=== PATIENT | female | born 1970 | race Caucasian/White ===

== ENCOUNTER 2023-02-28 17:02 | Inpatient (IN) | payer MEDICAID, OTHER, SELFPAY ==
[2023-02-28 17:33] VITALS: BP 127/99; PULSE 105; RESP 18; TEMP 36.8; O2SAT 95; BMI 21.6
[2023-02-28 17:45] LABS: Appearance Urine Clear; Color Urine Yellow; Glucose Urine UA Negative (Negative); Leukocyte Esterase Urine Negative (Negative); Nitrite Urine Negative (Negative); Urine Blood Negative (Negative); Urine Ketones Negative (Negative); Urine Protein Trace mg/dL (Neg-Trace)
[2023-02-28 17:50] LABS: Amphetamine Screen Urine Not Detected (Not Detect); Barbiturates, Urine Not Detected (Not Detect); Benzodiazepines Screen Urine Not Detected (Not Detect); Cannabinoid Screen Urine POSITIVE (Not Detect); Cocaine Screen Urine Not Detected (Not Detect); Fentanyl, urine Not Detected (Not Detect); Opiate Screen Urine Not Detected (Not Detect); Phencyclidine Screen Urine Not Detected (Not Detect)
[2023-02-28 18:03] LABS: COVID-19 Test Negative (Negative); IDNOW Serial# 6674DD1D
--- NOTE | 2023-02-28 18:12 | PC.NURSE ---
MD at bedside for assessment. pt reports multiple life stresors including in the family and issues with her grown children. at bedside for visit.
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
[2023-02-28 18:17] LABS: UPreg QC Valid YES; Urine Pregnancy NEGATIVE (NEGATIVE)
[2023-02-28 18:19] LABS: MANUAL DIFF FLAG NO
[2023-02-28 18:22] LABS: Basophils Absolute Auto 0.1 X10*3/uL (0.0-0.2); Basophils Percent Auto 1.1 % (0-2); Eosinophils Absolute Auto 0.2 X10*3/uL (0.0-0.4); Eosinophils Percent Auto 2.5 % (0-4); Hematocrit 43.6 % (37.0-47.0); Hemoglobin 15.1 g/dl (12.0-16.0); Imm Gran Abs Auto 0.01 X10*3/uL (0.00-0.03); Imm Gran Pct Auto 0.2 % (0.0-0.4); Lymphocytes Absolute Auto 1.8 X10*3/uL (1.2-4.9); Lymphocytes Percent Auto 27.7 % (20-40); Mean Corpuscular HGB Conc 34.6 g/dl (31.0-35.0); Mean Corpuscular Hemoglobin 35.4 pg (27.0-33.0); Mean Corpuscular Volume 102.1 fL (80.0-98.0); Mean Platelet Volume 8.8 fL (9.4-12.3); Monocytes Absolute Auto 0.4 X10*3/uL (0.1-1.2); Neutrophils Percent Auto 62.5 % (45-73); Platelet Count 358 X10*3/uL (160-400); Red Blood Count 4.27 X10*6/uL (4.20-5.50); Red Cell Distribution Width 13.1 % (11.0-16.0); White Blood Count 6.4 X10*3/uL (4.8-10.8)
[2023-02-28 18:38] LABS: Alanine Aminotransferase 74 U/L (0-31); Albumin Level 4.7 g/dL (3.5-5.0); Alkaline Phosphatase 65 U/L (39-117); Anion Gap 21 (12-20); Aspartate Amino Transferase 114 U/L (5-31); Bilirubin Total 0.4 mg/dL (0.0-1.0); Blood Urea Nitrogen 7 mg/dL (9-16); Calcium 9.8 mg/dL (8.4-10.2); Carbon Dioxide 24 mmol/L (22-29); Chloride 105 mmol/L (96-108); Creatinine Clr Calc Pharmacy 81.3; Estimated Glomerular Filt Rate > 60; Ethanol 280 mg/dL; Glucose Random 104 mg/dL (60-115); Potassium 3.9 mmol/L (3.3-5.1); Salicylate < 5.0 mg/dL (15-30); Sodium 146 mmol/L (135-145); Total Protein 7.8 g/dL (6.5-8.0)
--- NOTE | 2023-02-28 18:43 | PC.NURSE ---
CARE team at bedside for assessment
--- NOTE | 2023-02-28 19:33 | PC.NURSE ---
patient appears to remain at rest at present respirations are even and unlabored patient appears in no distress
--- NOTE | 2023-02-28 19:36 | PC.NURSE ---
patient having multiple visits one at a time including son
[2023-02-28] MEDS: diphenhydrAMINE HCL 25 MG CAPSULE 50 MG PO (23:09)
[2023-03-01 09:02] VITALS: BP 134/65; PULSE 84; TEMP 36.8; O2SAT 97
[2023-03-01] MEDS: Thiamine HCL 100 MG TABLET PO (10:26)
[2023-03-01] MEDS: LORazepam 1 MG TABLET 2 MG PO ×2 (10:29→16:55)
--- NOTE | 2023-03-01 10:31 | PC.NURSE ---
2MG Lorazepam given for CIWA 13.
--- NOTE | 2023-03-01 11:13 | ECG_ITS ---
Test Reason : QTC INTERVAL Blood Pressure : / mmHG Vent. Rate : 069 BPM Atrial Rate : 056 BPM P-R Int : 134 ms QRS Dur : 072 ms QT Int : 410 ms P-R-T Axes : 067 -02 035 degrees QTc Int : 439 ms Sinus bradycardia with sinus arrhythmia with frequent Premature atrial complexes Possible Left atrial enlargement Borderline ECG When compared with ECG of 31-AUG-2012 23:46, Premature atrial complexes are now Present Referred By: Haydee Vieira Electronically Signed By:PANCHITO WEISS MD
[2023-03-01] MEDS: LORazepam 1 MG TABLET PO (14:41)
--- NOTE | 2023-03-01 14:43 | PC.NURSE ---
CIWA score 7. 1mg Lorazepam given. No behavioral concerns this shift. Appetite fair. Client had visit with boyfriend which she reports as good.
[2023-03-01 16:05] VITALS: BP 136/90; PULSE 103; RESP 16; TEMP 36.8; O2SAT 94
[2023-03-01] MEDS: Acetaminophen 325 MG TABLET 650 MG PO (16:55)
[2023-03-01 17:46] VITALS: BMI 21.6
--- NOTE | 2023-03-01 18:02 | PC.NURSE ---
Little was admitted to M3 at 1550 from [facility] on [facility] for treatment of depression, ptsd and etoh use disorder She has been drinking to pass out daily for 8-9 months. Last drink was 02/28/23 - approx 24 hours prior to admission - CIWA on arrival to the unit was 14 and 2mg ativan given per order with effect. She scored for tremor, diaphoresis, anxiety, headache. She denies history of alcohol withdrawal seizures. On arrival to the unit she is alert, fully oriented, pleasant and cooperative with admission assessment. Mood is depressed. Affect is sad and anxious. She denies hallucinations of any kind and no s/s of psychosis are noted. Thought Process is organized. Patient denies plan or intent to harm self or others. Patient reports that her father committed suicide when she was 3 years old. I would never do that because I know what it does to your children. Appetite is poor and pt has lost 15 pounds without intention. Nutrition consult is pending. Sleep is poor. I drink and smoke pot to sleep but it doesn't really work. Focus is good. Patient reports history of treatment with celexa which was unhelpful and sertraline which was helpful. She reports she would forget to take it and lost her therapist and psychiatrist and pcp because she forgot to attend appointments. She also reports she recently lost her insurance. She denies current .medical Issues. Severe allergy to droperidol - torticollis - confirmed. Little is placed on q 15 min Safety Checks. She is placed on high fall risk for unknown recent history of falls.
[2023-03-01 20:25] VITALS: RESP 18; TEMP 36.2
[2023-03-02] MEDS: LORazepam 1 MG TABLET 2 MG PO ×4 (03:10→19:39)
[2023-03-02 03:14] VITALS: BP 125/93; PULSE 95; RESP 18; TEMP 36.6; O2SAT 98
[2023-03-02 10:50] VITALS: BP 142/79; PULSE 75; RESP 16; TEMP 36.7; O2SAT 98
[2023-03-02] MEDS: Acetaminophen 325 MG TABLET 650 MG PO ×2 (11:10→19:38)
[2023-03-02] MEDS: Ondansetron ODT 4 MG TAB.RAPDIS TRANSLINGU (11:16)
--- NOTE | 2023-03-02 13:06 | MHC.CLN ---
NUTRITION CONSULT FOR REPORTED 15# WEIGHT LOSS. PATIENT DRINKING HEAVILY X 8-9 MONTHS PRIOR TO ADMISSION. WEIGHT LOSS LIKELY DUE TO ETOH ABUSE AND MARIJUANA USE. REPORTS THAT EATING SMALL AMOUNTS NOW. PER DISCUSSION, ADDING FORTIFIED ICE CREAM BID. PROVIDES 580 KCALS, 18 G PROTEIN.
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
[2023-03-02] MEDS: Sertraline HCL 25 MG TABLET PO (15:04)
[2023-03-02 15:16] VITALS: BP 126/81; PULSE 41; O2SAT 96
[2023-03-02] MEDS: Magnesium Hydrox/Alum Hydrox 30 ML ORAL.SUSP PO (15:22)
[2023-03-02 18:28] VITALS: BP 136/90; PULSE 104; RESP 18; TEMP 36.6; O2SAT 96
[2023-03-02] MEDS: Loperamide HCl 2 MG CAPSULE 4 MG PO (21:26)
[2023-03-02 23:46] VITALS: BP 120/88; PULSE 107; RESP 16; TEMP 36.6; O2SAT 99
[2023-03-02] MEDS: Mirtazapine 15 MG TABLET PO (23:55)
[2023-03-03] MEDS: LORazepam 1 MG TABLET 3 MG PO (00:01)
--- NOTE | 2023-03-03 00:08 | PC.NURSE ---
notified of CIWA of 20. patient is fully oriented. no agitation. presents with severe tremors and drenching sweats. on approach for assessment stated ''I'm so cold'' when linen checked, it was drenched. linen changed. patient with tremors and had difficulties holding her water cup without spilling it. 3 mg ativan administered as per orders. patient is aware that she will be re assessed during the overnight shift. able to verbalize back need to wake for assessment.
--- NOTE | 2023-03-03 02:33 | PC.NURSE ---
CIWA done at 0200. still with some tremors but is no longer with severe diaphoresis.
[2023-03-03 04:58] VITALS: BP 135/79; PULSE 87; RESP 14; TEMP 36.3; O2SAT 98
[2023-03-03] MEDS: LORazepam 1 MG TABLET PO ×4 (05:04→23:46)
[2023-03-03] MEDS: Ondansetron ODT 4 MG TAB.RAPDIS TRANSLINGU ×2 (05:04→13:42)
[2023-03-03] MEDS: Acetaminophen 325 MG TABLET 650 MG PO ×2 (05:04→19:53)
[2023-03-03 07:20] VITALS: BP 133/80; PULSE 62; RESP 16; TEMP 36.2; O2SAT 98
[2023-03-03] MEDS: Sertraline HCL 25 MG TABLET PO (08:30)
[2023-03-03] MEDS: Thiamine HCL 100 MG TABLET PO (08:30)
--- NOTE | 2023-03-03 13:01 | P.PNPSI_ITS ---
Subjective Subjective Date of Service: 03/03/23 Reason For Visit: SI/ETOH Subjective Notes: Conditional Voluntary Interim History: The nursing staff reported the patient had been scoring on the CIWA very high and she had been responding to Ativan. She had a good p.o. intake and she has some tremors. On interview at bedside she was pleasant, cooperative I explained her that she is going into alcohol withdrawal protocol and she was able to contract for safety in the facility. She looks very dysphoric Mental Status Exam Mental Status Exam Patient Appearance: Appropriate and Unkempt Patient Orientation: Person and Situation Level of Consciousness: Awake Patient Behavior: Guarded and Passive Mood Description: Withdrawn Affect Description: Constricted Patient Cognition Impaired: Yes Ability to Follow Directions: Good Speech Pattern: Clear Hallucinations: None Delusions: Not Present Thought Process: Distracted and Slowed Thinking Thought Content: positive for Circumstantial and positive for Poverty of Content Judgement: Fair Diagnostics Vital Signs (24Hr): Vital Signs - 24 hr 03/02/23 15:16 03/02/23 18:28 03/02/23 23:46 Temperature 97.9 F 98 F Pulse Rate 41 L 104 H 107 H Respiratory Rate 18 16 Blood Pressure 126/81 136/90 H 120/88 Pulse Oximetry 96 96 99 Oxygen Delivery Method Room Air Room Air Room Air 03/03/23 04:58 03/03/23 07:20 Temperature 97.3 F 97.2 F Pulse Rate 87 62 Respiratory Rate 14 16 Blood Pressure 135/79 133/80 Pulse Oximetry 98 98 Oxygen Delivery Method Room Air Room Air BMI result Body Mass Index 21.6 Labs 02/28/23 18:13 02/28/23 18:13 Medications Medications Current Medications Acetaminophen (Acetaminophen 325 Mg Tablet) 650 mg PO Q6H PRN PRN Reason: Headache/Pain Mild Scale (1-3) Last Admin: 03/03/23 05:04 Dose: 650 mg Al Hydroxide/Mg Hydroxide (Magnesium Hydrox/Alum Hydrox 30 Ml Oral.Susp) 30 ml PO Q6H PRN PRN Reason: Heartburn/Nausea Last Admin: 03/02/23 15:22 Dose: 30 ml Hydroxyzine HCl (Hydroxyzine Hcl 25 Mg Tablet) 25 mg PO Q6H PRN PRN Reason: Anxiety Lorazepam (Lorazepam 1 Mg Tablet) 1 mg PO Q4H PRN PRN Reason: ciwa 7-12 Last Admin: 03/03/23 08:30 Dose: 1 mg Lorazepam (Lorazepam 1 Mg Tablet) 2 mg PO Q4H PRN PRN Reason: ciwa 13-17 Last Admin: 03/02/23 19:39 Dose: 2 mg Lorazepam (Lorazepam 1 Mg Tablet) 3 mg PO Q4H PRN PRN Reason: >17, call Last Admin: 03/03/23 00:01 Dose: 3 mg Magnesium Hydroxide (Milk Of Magnesia 30 Ml Oral.Susp) 30 ml PO DAILY PRN PRN Reason: Constipation Mirtazapine (Mirtazapine 15 Mg Tablet) 15 mg PO BEDTIME MARIO Last Admin: 03/02/23 23:55 Dose: 15 mg Mirtazapine (Mirtazapine 7.5 Mg Tablet) 7.5 mg PO BEDTIME PRN PRN Reason: insomnia Nicotine Polacrilex (Nicotine Polacrilex 2 Mg Gum) 4 mg BUCCAL Q2H PRN PRN Reason: Nicotine Cravings Ondansetron HCl (Ondansetron Odt 4 Mg Tab.Rapdis) 4 mg TRANSLINGU Q6H PRN PRN Reason: Nausea and Vomiting Last Admin: 03/03/23 05:04 Dose: 4 mg Sertraline HCl (Sertraline Hcl 25 Mg Tablet) 25 mg PO DAILY MARIO Stop: 03/04/23 09:01 Last Admin: 03/03/23 08:30 Dose: 25 mg Sertraline HCl (Sertraline Hcl 50 Mg Tablet) 50 mg PO DAILY MARIO Thiamine HCl (Thiamine Hcl 100 Mg Tablet) 100 mg PO DAILY [facility] Last Admin: 03/03/23 08:30 Dose: 100 mg Allergies Allergies Allergy/AdvReac Type Severity Reaction Status Date / Time droperidol [From INAPSINE] Allergy Severe MUSCLE Verified 03/01/23 16:12 CRAMPS Assessment & Plan Assessment & Plan (1) Alcohol use disorder: Status: Acute Code(s): F10.90 - Alcohol use, unspecified, uncomplicated (2) Depression: Status: Acute Code(s): F32.A - Depression, unspecified Plan 03/02: to target depression, insomnia, and anorexia, start remeron 15 QHS with repeat of 7.5 PRN. to target depression and anxiety, start zoloft 25 mg for three days and then 50 mg thereafter. T/C addition of wellbutrin as augmentation and to increase energy, motivation if warranted. 03/03 continue same treatment, still with alcohol withdrawal symptoms. Reason for continued inpatient stay Substantial Risk for: inability to function, rapid decompensation and med/psych decompensation Time Spent With Patient Time: Total time managing care of this patient today __20__ minutes.
[2023-03-03] MEDS: LORazepam 1 MG TABLET 2 MG PO (13:42)
[2023-03-03 19:47] VITALS: BP 123/83; PULSE 110; RESP 16; TEMP 36.3; O2SAT 97
[2023-03-03] MEDS: hydrOXYzine HCL 25 MG TABLET PO (19:54)
[2023-03-03] MEDS: Mirtazapine 15 MG TABLET PO (23:46)
--- NOTE | 2023-03-03 23:48 | PC.NURSE ---
CIWA-meet criteria for ativan 1 mg for alcohol w/d. administered at this time.
[2023-03-04 07:20] VITALS: BP 135/71; PULSE 60; RESP 16; TEMP 36.2; O2SAT 98
[2023-03-04] MEDS: Sertraline HCL 25 MG TABLET PO (08:16)
[2023-03-04] MEDS: Ondansetron ODT 4 MG TAB.RAPDIS TRANSLINGU (08:17)
[2023-03-04] MEDS: Thiamine HCL 100 MG TABLET PO (08:17)
--- NOTE | 2023-03-04 12:27 | HO.PSYCHPN ---
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 On interview the patient reported that she has feeling a little better. Denies active suicidal thoughts able to contract for safety in the unit. Mental Status Exam Mental Status Exam Patient Appearance: Appropriate Patient Orientation: Person and Situation Level of Consciousness: Awake Patient Behavior: Guarded and Passive Mood Description: Withdrawn Affect Description: Blunted Ability to Follow Directions: Good Speech Pattern: Clear Hallucinations: None Delusions: Not Present Thought Process: Distracted and Slowed Thinking Thought Content: positive for [place] and positive for Poverty of Content Judgement: Fair Diagnostics Vital Signs (24Hr): Vital Signs - 24 hr 03/03/23 19:47 03/04/23 07:20 Temperature 97.3 F 97.2 F Pulse Rate 110 H 60 Respiratory Rate 16 16 Blood Pressure 123/83 135/71 Pulse Oximetry 97 98 Oxygen Delivery Method Room Air Room Air BMI result Body Mass Index 21.6 Labs 02/28/23 18:13 02/28/23 18:13 Medications Medications Current Medications Acetaminophen (Acetaminophen 325 Mg Tablet) 650 mg PO Q6H PRN PRN Reason: Headache/Pain Mild Scale (1-3) Last Admin: 03/03/23 19:53 Dose: 650 mg Al Hydroxide/Mg Hydroxide (Magnesium Hydrox/Alum Hydrox 30 Ml Oral.Susp) 30 ml PO Q6H PRN PRN Reason: Heartburn/Nausea Last Admin: 03/02/23 15:22 Dose: 30 ml Hydroxyzine HCl (Hydroxyzine Hcl 25 Mg Tablet) 25 mg PO Q6H PRN PRN Reason: Anxiety Last Admin: 03/03/23 19:54 Dose: 25 mg Lorazepam (Lorazepam 1 Mg Tablet) 1 mg PO Q4H PRN PRN Reason: ciwa 7-12 Last Admin: 03/03/23 23:46 Dose: 1 mg Lorazepam (Lorazepam 1 Mg Tablet) 2 mg PO Q4H PRN PRN Reason: ciwa 13-17 Last Admin: 03/03/23 13:42 Dose: 2 mg Lorazepam (Lorazepam 1 Mg Tablet) 3 mg PO Q4H PRN PRN Reason: >17, call Last Admin: 03/03/23 00:01 Dose: 3 mg Magnesium Hydroxide (Milk Of Magnesia 30 Ml Oral.Susp) 30 ml PO DAILY PRN PRN Reason: Constipation Mirtazapine (Mirtazapine 15 Mg Tablet) 15 mg PO BEDTIME MARIO Last Admin: 03/03/23 23:46 Dose: 15 mg Mirtazapine (Mirtazapine 7.5 Mg Tablet) 7.5 mg PO BEDTIME PRN PRN Reason: insomnia Nicotine Polacrilex (Nicotine Polacrilex 2 Mg Gum) 4 mg BUCCAL Q2H PRN PRN Reason: Nicotine Cravings Ondansetron HCl (Ondansetron Odt 4 Mg Tab.Rapdis) 4 mg TRANSLINGU Q6H PRN PRN Reason: Nausea and Vomiting Last Admin: 03/04/23 08:17 Dose: 4 mg Sertraline HCl (Sertraline Hcl 50 Mg Tablet) 50 mg PO DAILY MARIO Thiamine HCl (Thiamine Hcl 100 Mg Tablet) 100 mg PO DAILY MARIO Last Admin: 03/04/23 08:17 Dose: 100 mg Allergies Allergies Allergy/AdvReac Type Severity Reaction Status Date / Time droperidol [From INAPSINE] Allergy Severe MUSCLE Verified 03/01/23 16:12 CRAMPS Assessment & Plan Assessment & Plan (1) Alcohol use disorder: Status: Acute Code(s): F10.90 - Alcohol use, unspecified, uncomplicated (2) Depression: Status: Acute Code(s): F32.A - Depression, unspecified Plan 03/02: to target depression, insomnia, and anorexia, start remeron 15 QHS with repeat of 7.5 PRN. to target depression and anxiety, start zoloft 25 mg for three days and then 50 mg thereafter. T/C addition of wellbutrin as augmentation and to increase energy, motivation if warranted. 03/03 continue same treatment, still with alcohol withdrawal symptoms. 03/04 continue same treatment. Reason for continued inpatient stay Substantial Risk for: inability to function, rapid decompensation and med/psych decompensation Time Spent With Patient Time: Total time managing care of this patient today ____ minutes.
[2023-03-04 20:15] VITALS: BP 139/66; PULSE 72; RESP 18; TEMP 36.5; O2SAT 99
[2023-03-04] MEDS: Mirtazapine 15 MG TABLET PO (23:01)
[2023-03-05] MEDS: Mirtazapine 7.5 MG TABLET PO (00:46)
[2023-03-05] MEDS: LORazepam 1 MG TABLET PO ×2 (00:46→08:48)
[2023-03-05] MEDS: hydrOXYzine HCL 25 MG TABLET PO (03:47)
--- NOTE | 2023-03-05 04:09 | PC.NURSE ---
Little is noted to be having difficulty falling and staying asleep. she c/o increased anxiety with racing thoughts. I just can't seem to shut my mind off tonight this food writer reviewed various relaxation and visualization techniques with the patient. Little stated understanding of the techniques reviewed and that she would attempt to initiate some of the techniques reviewed. no score on CIWA at 2000. patient received 1 mg of Ativan for a score of 10 at 0100 along with a repeat PRN Remeron. 0400 no score. continue to monitor for safety, review relaxation techniques as needed, continue Plan of Care
[2023-03-05 07:15] VITALS: BP 126/74; PULSE 90; RESP 18; TEMP 36.9; O2SAT 97
[2023-03-05] MEDS: Thiamine HCL 100 MG TABLET PO (08:45)
[2023-03-05] MEDS: Sertraline HCL 50 MG TABLET PO (08:45)
[2023-03-05] MEDS: Milk of Magnesia 30 ML ORAL.SUSP PO (08:51)
--- NOTE | 2023-03-05 11:56 | HO.PSYCHPN ---
Subjective Subjective Date of Service: 03/05/23 Reason For Visit: SI/ETOH Subjective Notes: Conditional Voluntary Interim History: Reviewed with Dr. Feldman. Patient reports feeling better today; pt stated, I feel like this is something that needed to happen. I'm committed to not being the person I came in. I want to go to a program . Pt denies SI/HI/VH/AH. pt denies any withdrawal symptoms. DC ITZELWA. Medication Compliance: Yes Side effects from medications: No Review of Systems Constitutional: Reports as per HPI Eyes: Reports as per HPI Reports as per HPI Cardiovascular: Reports as per HPI Respiratory: Reports as per HPI Gastrointestinal: Reports as per HPI Genitourinary: Reports as per HPI Musculoskeletal: Reports as per HPI Skin/Breast: Reports as per HPI Reports as per HPI Psychiatric: Reports as per HPI Endocrine: Reports as per HPI Hematologic/Lymphatic: Reports as per HPI Allergic/Immunologic: Reports as per HPI Mental Status Exam Mental Status Exam Narrative: Pt is alert and oriented; behavior is cooperative, friendly and calm; dressed in casual attire; mood is described as better ; eye contact appropriate; Speech is normal rate, volume and prosody and not pressured; thought process is organized and goal directed; Thought content is on tx; otherwise pertinent to relevant topics and without any delusional content, paranoid ideations or grandiosity; denies SI/HI/VH/AH. Diagnostics Vital Signs (24Hr): Vital Signs - 24 hr 03/04/23 20:15 03/05/23 07:15 Temperature 97.7 F 98.5 F Pulse Rate 72 90 Respiratory Rate 18 18 Blood Pressure 139/66 126/74 Pulse Oximetry 99 97 Oxygen Delivery Method Room Air Room Air BMI result Body Mass Index 21.6 Labs 02/28/23 18:13 02/28/23 18:13 Medications Medications Current Medications Acetaminophen (Acetaminophen 325 Mg Tablet) 650 mg PO Q6H PRN PRN Reason: Headache/Pain Mild Scale (1-3) Last Admin: 03/03/23 19:53 Dose: 650 mg Al Hydroxide/Mg Hydroxide (Magnesium Hydrox/Alum Hydrox 30 Ml Oral.Susp) 30 ml PO Q6H PRN PRN Reason: Heartburn/Nausea Last Admin: 03/02/23 15:22 Dose: 30 ml Hydroxyzine HCl (Hydroxyzine Hcl 25 Mg Tablet) 25 mg PO Q6H PRN PRN Reason: Anxiety Last Admin: 03/05/23 03:47 Dose: 25 mg Lorazepam (Lorazepam 1 Mg Tablet) 1 mg PO Q4H PRN PRN Reason: ciwa 7-12 Last Admin: 03/05/23 08:48 Dose: 1 mg Lorazepam (Lorazepam 1 Mg Tablet) 2 mg PO Q4H PRN PRN Reason: ciwa 13-17 Last Admin: 03/03/23 13:42 Dose: 2 mg Lorazepam (Lorazepam 1 Mg Tablet) 3 mg PO Q4H PRN PRN Reason: >17, call Last Admin: 03/03/23 00:01 Dose: 3 mg Magnesium Hydroxide (Milk Of Magnesia 30 Ml Oral.Susp) 30 ml PO DAILY PRN PRN Reason: Constipation Last Admin: 03/05/23 08:51 Dose: 30 ml Mirtazapine (Mirtazapine 15 Mg Tablet) 15 mg PO BEDTIME MARIO Last Admin: 03/04/23 23:01 Dose: 15 mg Mirtazapine (Mirtazapine 7.5 Mg Tablet) 7.5 mg PO BEDTIME PRN PRN Reason: insomnia Last Admin: 03/05/23 00:46 Dose: 7.5 mg Nicotine Polacrilex (Nicotine Polacrilex 2 Mg Gum) 4 mg BUCCAL Q2H PRN PRN Reason: Nicotine Cravings Ondansetron HCl (Ondansetron Odt 4 Mg Tab.Rapdis) 4 mg TRANSLINGU Q6H PRN PRN Reason: Nausea and Vomiting Last Admin: 03/04/23 08:17 Dose: 4 mg Sertraline HCl (Sertraline Hcl 50 Mg Tablet) 50 mg PO DAILY [facility] Last Admin: 03/05/23 08:45 Dose: 50 mg Thiamine HCl (Thiamine Hcl 100 Mg Tablet) 100 mg PO DAILY [facility] Last Admin: 03/05/23 08:45 Dose: 100 mg Allergies Allergies Allergy/AdvReac Type Severity Reaction Status Date / Time droperidol [From INAPSINE] Allergy Severe MUSCLE Verified 03/01/23 16:12 CRAMPS Assessment & Plan Assessment & Plan (1) Alcohol use disorder: Status: Acute Code(s): F10.90 - Alcohol use, unspecified, uncomplicated (2) Depression: Status: Acute Code(s): F32.A - Depression, unspecified Plan 03/02: to target depression, insomnia, and anorexia, start remeron 15 QHS with repeat of 7.5 PRN. to target depression and anxiety, start zoloft 25 mg for three days and then 50 mg thereafter. T/C addition of wellbutrin as augmentation and to increase energy, motivation if warranted. 03/03 continue same treatment, still with alcohol withdrawal symptoms. 03/04 continue same treatment. 03/05: Patient reports feeling better today; pt stated, I feel like this is something that needed to happen. I'm committed to not being the person I came in. I want to go to a program . Pt denies SI/HI/VH/AH. pt denies any withdrawal symptoms. ANA ROSALES. Start: Ativan 0.5mg PO BID Patient educated on: diagnosis, medication risk/benefits, substance abuse and therapeutic strategies Informed Consent: understands Reason for continued inpatient stay Substantial Risk for: med/psych decompensation Time Spent With Patient Time: Total time managing care of this patient today _30___ minutes.
[2023-03-05] MEDS: LORazepam 0.5 MG TABLET PO ×2 (13:11→22:22)
[2023-03-05 21:00] VITALS: BP 134/84; PULSE 82; RESP 18; TEMP 36.7; O2SAT 97
[2023-03-05] MEDS: Mirtazapine 15 MG TABLET PO (22:22)
--- NOTE | 2023-03-06 04:01 | PC.NURSE ---
Little came to this promotion writer crying stating It's gonna be a ruff night for me she said she was upset because she had tried to call her boyfriend and that his phone was off. his phone is never off there's only one reason for him to not be answering the phone, I know he's cheating on me this promotion writer spent approximately 45 minutes talking with the patient, teaching new relaxation techniques and reviewing others that have already been discussed. the patient was able to regain her composure and return to her bed. she has appeared to be asleep since approximately 0100. continue to monitor or safety, review stress reduction relaxation techniques as needed, continue Plan of Care
[2023-03-06 08:10] VITALS: BP 124/77; PULSE 64; RESP 16; TEMP 36.4; O2SAT 96
[2023-03-06] MEDS: LORazepam 0.5 MG TABLET PO ×2 (08:28→21:33)
[2023-03-06] MEDS: Sertraline HCL 50 MG TABLET PO (08:28)
[2023-03-06] MEDS: Thiamine HCL 100 MG TABLET PO (08:28)
--- NOTE | 2023-03-06 13:04 | P.PNPSI_ITS ---
Subjective Subjective Date of Service: 03/06/23 Reason For Visit: SI/ETOH Subjective Notes: Conditional Voluntary Interim History: Reviewed with Dr. Feldman. Social with peers. better sleep last night per pt. Pt reports she was doing great but last night was having boyfriend issues and told him to move out . denies SI. Medication Compliance: Yes Side effects from medications: No Attending Groups: Yes Review of Systems Constitutional: Reports as per HPI Eyes: Reports as per HPI Reports as per HPI Cardiovascular: Reports as per HPI Respiratory: Reports as per HPI Gastrointestinal: Reports as per HPI Musculoskeletal: Reports as per HPI Skin/Breast: Reports as per HPI Reports as per HPI Psychiatric: Reports as per HPI Endocrine: Reports as per HPI Hematologic/Lymphatic: Reports as per HPI Allergic/Immunologic: Reports as per HPI Mental Status Exam Mental Status Exam Narrative: Pt is alert and oriented; behavior is cooperative, friendly and calm; dressed in casual attire; mood is described as anxious ; eye contact appropriate; Speech is normal rate, volume and prosody and not pressured; thought process is organized and goal directed; Thought content is on tx; otherwise pertinent to relevant topics and without any delusional content, paranoid ideations or grandiosity. Diagnostics Vital Signs (24Hr): Vital Signs - 24 hr 03/05/23 21:00 03/06/23 08:10 Temperature 98.0 F 97.6 F Pulse Rate 82 64 Respiratory Rate 18 16 Blood Pressure 134/84 124/77 Pulse Oximetry 97 96 Oxygen Delivery Method Room Air Room Air BMI result Body Mass Index 21.6 Labs 02/28/23 18:13 02/28/23 18:13 Medications Medications Current Medications Acetaminophen (Acetaminophen 325 Mg Tablet) 650 mg PO Q6H PRN PRN Reason: Headache/Pain Mild Scale (1-3) Last Admin: 03/03/23 19:53 Dose: 650 mg Al Hydroxide/Mg Hydroxide (Magnesium Hydrox/Alum Hydrox 30 Ml Oral.Susp) 30 ml PO Q6H PRN PRN Reason: Heartburn/Nausea Last Admin: 03/02/23 15:22 Dose: 30 ml Hydroxyzine HCl (Hydroxyzine Hcl 25 Mg Tablet) 25 mg PO Q6H PRN PRN Reason: Anxiety Last Admin: 03/05/23 03:47 Dose: 25 mg Lorazepam (Lorazepam 0.5 Mg Tablet) 0.5 mg PO BID MARIO Last Admin: 03/06/23 08:28 Dose: 0.5 mg Magnesium Hydroxide (Milk Of Magnesia 30 Ml Oral.Susp) 30 ml PO DAILY PRN PRN Reason: Constipation Last Admin: 03/05/23 08:51 Dose: 30 ml Mirtazapine (Mirtazapine 15 Mg Tablet) 15 mg PO BEDTIME [facility] Last Admin: 03/05/23 22:22 Dose: 15 mg Mirtazapine (Mirtazapine 7.5 Mg Tablet) 7.5 mg PO BEDTIME PRN PRN Reason: insomnia Last Admin: 03/05/23 00:46 Dose: 7.5 mg Nicotine Polacrilex (Nicotine Polacrilex 2 Mg Gum) 4 mg BUCCAL Q2H PRN PRN Reason: Nicotine Cravings Ondansetron HCl (Ondansetron Odt 4 Mg Tab.Rapdis) 4 mg TRANSLINGU Q6H PRN PRN Reason: Nausea and Vomiting Last Admin: 03/04/23 08:17 Dose: 4 mg Sertraline HCl (Sertraline Hcl 50 Mg Tablet) 50 mg PO DAILY [facility] Last Admin: 03/06/23 08:28 Dose: 50 mg Thiamine HCl (Thiamine Hcl 100 Mg Tablet) 100 mg PO DAILY [facility] Last Admin: 03/06/23 08:28 Dose: 100 mg Allergies Allergies Allergy/AdvReac Type Severity Reaction Status Date / Time droperidol [From INAPSINE] Allergy Severe MUSCLE Verified 03/01/23 16:12 CRAMPS Assessment & Plan Assessment & Plan (1) Alcohol use disorder: Status: Acute Code(s): F10.90 - Alcohol use, unspecified, uncomplicated (2) Depression: Status: Acute Code(s): F32.A - Depression, unspecified Plan 03/02: to target depression, insomnia, and anorexia, start remeron 15 QHS with repeat of 7.5 PRN. to target depression and anxiety, start zoloft 25 mg for three days and then 50 mg thereafter. T/C addition of wellbutrin as augmentation and to increase energy, motivation if warranted. 03/03 continue same treatment, still with alcohol withdrawal symptoms. 03/04 continue same treatment. 03/05: Patient reports feeling better today; pt stated, I feel like this is something that needed to happen. I'm committed to not being the person I came in. I want to go to a program . Pt denies SI/HI/VH/AH. pt denies any withdrawal symptoms. DC CIWA. Start: Ativan 0.5mg PO BID 03/06: Continue current tx plan. Patient educated on: diagnosis and medication risk/benefits Informed Consent: understands Reason for continued inpatient stay Substantial Risk for: med/psych decompensation Time Spent With Patient Time: Total time managing care of this patient today _20___ minutes.
[2023-03-06] MEDS: Omeprazole 20 MG CAPSULE.DR PO (14:06)
[2023-03-06] MEDS: Mirtazapine 15 MG TABLET PO (21:33)
[2023-03-06 21:35] VITALS: BP 133/81; PULSE 70; RESP 16; TEMP 35.9; O2SAT 98
[2023-03-06] MEDS: hydrOXYzine HCL 25 MG TABLET PO (23:40)
[2023-03-06] MEDS: Mirtazapine 7.5 MG TABLET PO (23:40)
[2023-03-07] MEDS: Omeprazole 20 MG CAPSULE.DR PO (06:53)
[2023-03-07 07:50] VITALS: BP 125/69; PULSE 62; RESP 16; TEMP 36.4; O2SAT 96
[2023-03-07] MEDS: Sertraline HCL 50 MG TABLET PO (08:43)
[2023-03-07] MEDS: LORazepam 0.5 MG TABLET PO ×2 (08:44→21:59)
[2023-03-07] MEDS: Thiamine HCL 100 MG TABLET PO (08:44)
--- NOTE | 2023-03-07 16:10 | HO.PSYCHPN ---
Subjective Subjective Date of Service: 03/07/23 Reason For Visit: SI/ETOH Interim History: calm, cooperative. c/o DFA insomnia, agrees to increase remeron to 30 mg QHS. mood much improved, making changes at home to prevent alcohol relapse. planning for sunday discharge. Mental Status Exam Mental Status Exam Narrative: calm, cooperative. no PMA/PMR. speech nml rate, amount, loudness, tone, latency. thoughts linear and logical without delusions or paranoia. affect flexible, normo-intense, non-labile. mood wonderful. no SI/HI/AVH/expressed. Diagnostics Vital Signs (24Hr): Vital Signs - 24 hr 03/06/23 21:35 03/07/23 07:50 Temperature 96.6 F L 97.6 F Pulse Rate 70 62 Respiratory Rate 16 16 Blood Pressure 133/81 125/69 Pulse Oximetry 98 96 Oxygen Delivery Method Room Air Room Air BMI result Body Mass Index 21.6 Labs 02/28/23 18:13 02/28/23 18:13 Medications Medications Current Medications Acetaminophen (Acetaminophen 325 Mg Tablet) 650 mg PO Q6H PRN PRN Reason: Headache/Pain Mild Scale (1-3) Last Admin: 03/03/23 19:53 Dose: 650 mg Al Hydroxide/Mg Hydroxide (Magnesium Hydrox/Alum Hydrox 30 Ml Oral.Susp) 30 ml PO Q6H PRN PRN Reason: Heartburn/Nausea Last Admin: 03/02/23 15:22 Dose: 30 ml Hydroxyzine HCl (Hydroxyzine Hcl 25 Mg Tablet) 25 mg PO Q6H PRN PRN Reason: Anxiety Last Admin: 03/06/23 23:40 Dose: 25 mg Lorazepam (Lorazepam 0.5 Mg Tablet) 0.5 mg PO BEDTIME MARIO Magnesium Hydroxide (Milk Of Magnesia 30 Ml Oral.Susp) 30 ml PO DAILY PRN PRN Reason: Constipation Last Admin: 03/05/23 08:51 Dose: 30 ml Mirtazapine (Mirtazapine 7.5 Mg Tablet) 7.5 mg PO BEDTIME PRN PRN Reason: insomnia Last Admin: 03/06/23 23:40 Dose: 7.5 mg Mirtazapine (Mirtazapine 30 Mg Tablet) 30 mg PO BEDTIME MARIO Nicotine Polacrilex (Nicotine Polacrilex 2 Mg Gum) 4 mg BUCCAL Q2H PRN PRN Reason: Nicotine Cravings Omeprazole (Omeprazole 20 Mg Capsule.Dr) 20 mg PO DAILY@0630 [facility] Last Admin: 03/07/23 06:53 Dose: 20 mg Ondansetron HCl (Ondansetron Odt 4 Mg Tab.Rapdis) 4 mg TRANSLINGU Q6H PRN PRN Reason: Nausea and Vomiting Last Admin: 03/04/23 08:17 Dose: 4 mg Sertraline HCl (Sertraline Hcl 50 Mg Tablet) 50 mg PO DAILY [facility] Last Admin: 03/07/23 08:43 Dose: 50 mg Thiamine HCl (Thiamine Hcl 100 Mg Tablet) 100 mg PO DAILY [facility] Last Admin: 03/07/23 08:44 Dose: 100 mg Allergies Allergies Allergy/AdvReac Type Severity Reaction Status Date / Time droperidol [From INAPSINE] Allergy Severe MUSCLE Verified 03/01/23 16:12 CRAMPS Assessment & Plan Assessment & Plan (1) Alcohol use disorder: Status: Acute Code(s): F10.90 - Alcohol use, unspecified, uncomplicated (2) Depression: Status: Acute Code(s): F32.A - Depression, unspecified Plan 03/02: to target depression, insomnia, and anorexia, start remeron 15 QHS with repeat of 7.5 PRN. to target depression and anxiety, start zoloft 25 mg for three days and then 50 mg thereafter. T/C addition of wellbutrin as augmentation and to increase energy, motivation if warranted. 03/03 continue same treatment, still with alcohol withdrawal symptoms. 03/04 continue same treatment. 03/05: Patient reports feeling better today; pt stated, I feel like this is something that needed to happen. I'm committed to not being the person I came in. I want to go to a program . Pt denies SI/HI/VH/AH. pt denies any withdrawal symptoms. DC CIWA. Start: Ativan 0.5mg PO BID 03/06: Continue current tx plan. 03/07: increase remeron to 30 mg QHS, otherwise continue current mgmt. planning for sunday discharge. Reason for continued inpatient stay Substantial Risk for: inability to function and rapid decompensation Time Spent With Patient Time: Total time managing care of this patient today __25__ minutes.
[2023-03-07] MEDS: Mirtazapine 30 MG TABLET PO (21:59)
[2023-03-07 22:01] VITALS: BP 142/82; PULSE 69; RESP 16; TEMP 36.8; O2SAT 99
[2023-03-08] MEDS: Omeprazole 20 MG CAPSULE.DR PO (06:50)
[2023-03-08 07:00] VITALS: BMI 22.4
[2023-03-08 07:15] VITALS: BP 123/75; PULSE 62; RESP 16; TEMP 36.7; O2SAT 96
[2023-03-08] MEDS: Sertraline HCL 50 MG TABLET PO (08:54)
[2023-03-08] MEDS: Thiamine HCL 100 MG TABLET PO (08:54)
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
[2023-03-08 19:53] VITALS: BP 125/96; PULSE 85; RESP 18; TEMP 36.7; O2SAT 97
[2023-03-08] MEDS: Mirtazapine 30 MG TABLET PO (22:25)
[2023-03-08] MEDS: LORazepam 0.5 MG TABLET PO (22:25)
[2023-03-09 07:30] VITALS: BP 125/69; PULSE 62; RESP 16; TEMP 36.4; O2SAT 97
[2023-03-09] MEDS: Sertraline HCL 50 MG TABLET PO (08:42)
[2023-03-09] MEDS: Thiamine HCL 100 MG TABLET PO (08:42)
[2023-03-09] MEDS: Omeprazole 20 MG CAPSULE.DR PO (08:42)
== END 2023-03-09 09:23 | disposition home or self-care (01) | DRG 754 ==
LOC: HO.ED 03-01 07:31 → HO.PADLT16 03-01 14:33
PROVIDERS: Admitting Provider Psychiatry & Neurology Psychiatry; Emergency Provider Emergency Medicine; Visit Provider Psychiatry & Neurology Psychiatry
DX: F32.A Depression, unspecified (principal); R45.851 Suicidal ideations; F10.920 Alcohol use, unspecified with intoxication, uncomplicated; F17.210 Nicotine dependence, cigarettes, uncomplicated; Z20.822 Contact with and (suspected) exposure to COVID-19; Y90.8 Blood alcohol level of 240 mg/100 ml or more; Z71.6 Tobacco abuse counseling; Z79.899 Other long term (current) drug therapy
CPT/HCPCS: 80053; 80179; 80307; 81003; 81025; 85025; 87635; 93005; 99285; S9485

== ENCOUNTER → 2023-03-01 11:13 | Outpatient (BNV) | payer MEDICAID, SELFPAY | PROVIDERS: Admitting Provider Psychiatry & Neurology Psychiatry; Emergency Provider Emergency Medicine; Visit Provider Internal Medicine Cardiovascular Disease | DX: I45.81 Long QT syndrome (principal) | CPT/HCPCS: 93010 ==

== ENCOUNTER → 2023-03-01 14:29 | Outpatient (BNV) | payer OTHER, SELFPAY | PROVIDERS: Admitting Provider Psychiatry & Neurology Psychiatry; Emergency Provider Emergency Medicine; Visit Provider Psychiatry & Neurology Psychiatry | DX: F33.2 Major depressive disorder, recurrent severe without psychotic features (principal); F10.90 Alcohol use, unspecified, uncomplicated | CPT/HCPCS: 90792; 99231; 99232; 99239 ==

== ENCOUNTER 2023-04-26 11:43 | Emergency (ER) | payer OTHER, SELFPAY ==
--- NOTE | 2023-04-26 11:53 | ED_ITS ---
HPI - Psych General Chief Complaint: ETOH/Substance Use Stated Complaint: crisis Time Seen by Provider: 04/26/23 13:16 Related Data Previous Rx's Medication Instructions Recorded mirtazapine 30 mg tablet 30 mg PO BEDTIME 30 days #30 tabs 03/08/23 omeprazole 20 mg capsule,delayed 20 mg PO DAILY@0630 30 days #30 03/08/23 release caps sertraline 50 mg tablet 50 mg PO DAILY 30 days #30 tabs 03/08/23 thiamine mononitrate (vit B1) 100 100 mg PO DAILY 30 days #30 tabs 03/08/23 mg tablet Allergies Allergy/AdvReac Type Severity Reaction Status Date / Time droperidol [From INAPSINE] Allergy Severe MUSCLE Verified 03/01/23 16:12 CRAMPS PMFSH Past Medical History Medical History (Updated 04/26/23 @ 23:06 by Arlen Carreon DO) Alcohol use disorder Depression Social History Social History Household Members: Significant Other and Children Housing: House Do you presently have visiting nurse or other home services: No Unable to assess alcohol history related to: Unknown Alcohol intake: current Patient Tobacco Use Status: Current everyday Tobacco user Tobacco use type: Cigarette Cigarette Packs Per Day: 0.1 Cigarettes Per Day: 2.0 Smoked in Last 30 Days: Yes Second Hand Smoke Exposure: No Use of substances other than those prescribed or required for medical reasons: Yes Substance Use Type: Marijuana Advance Directives: No Patient : No service: No Sexual orientation: Straight/Heterosexual Physical Exam 2 Vital Signs: Vital Signs: Last Vital Signs Temp 97.5 F 04/26/23 22:15 Pulse 72 04/26/23 23:08 Resp 16 04/26/23 23:08 BP 106/63 04/26/23 23:08 Pulse Ox 93 04/26/23 22:15 O2 Del Method Room Air 04/26/23 22:15 BMI result Body Mass Index 20.8 Course Course Course Narrative: This is a rapid medical exam: Additional HPI, ROS, PE not included below will be deferred to primary provider. Patient is a 52-year-old female with history of alcohol use disorder, depression presenting to the ED with complaint of depression, insomnia, states has not slept in past 2-3 days. She denies suicidal or homicidal ideation. Admits to daily alcohol use, unsure if history of withdrawal seizures. Plan: med clearance, CARE team eval Reevaluation(s) Reevaluation #1: awake and alert no SI/HI. She is feeling better does not want CARE team or SUDE evaluation she wants to go home at this time clinincally sober steady gait. Reevaluation #2: patient changed her mind 1110pm observation continued will keep for CARE team evaluation. Medications Administered Discontinued Medications Generic Name Dose Route Start Last Admin Trade Name Freq PRN Reason Stop Dose Admin Diphenhydramine HCl 50 mg 04/26/23 13:33 04/26/23 14:39 Diphenhydramine Hcl 50 Mg/Ml Vial IM 04/26/23 13:34 Not Given ONCE ONE Lorazepam 2 mg 04/26/23 13:33 04/26/23 14:39 Lorazepam 2 Mg/Ml Vial IM 04/26/23 13:34 Not Given STAT STA Lorazepam 2 mg 04/26/23 16:26 04/26/23 16:36 Lorazepam 1 Mg Tablet PO 04/26/23 16:27 2 mg ONCE ONE Administration Ondansetron HCl 4 mg 04/26/23 14:40 04/26/23 14:44 Ondansetron Odt 4 Mg Tab.Rapdis TRANSLINGU 04/26/23 14:41 4 mg ONCE ONE Administration Medical Decision Making Lab Data 04/26/23 12:06 04/26/23 12:06 Labs: Lab Results 04/26/23 04/26/23 Range/Units 12:06 15:43 WBC 7.3 (4.8-10.8) X10*3/uL RBC 4.32 (4.20-5.50) X10*6/uL Hgb 14.5 (12.0-16.0) g/dl Hct 42.7 (37.0-47.0) % MCV 98.8 H (80.0-98.0) fL MCH 33.6 H (27.0-33.0) pg MCHC 34.0 (31.0-35.0) g/dl RDW 13.2 (11.0-16.0) % Plt Count 410 H (160-400) X10*3/uL MPV 8.6 L (9.4-12.3) fL Immature Gran % (Auto) 0.3 (0.0-0.4) % Neut % (Auto) 58.4 (45-73) % Lymph % (Auto) 34.3 (20-40) % [place] % (Auto) 4.6 (2-11) % Eos % (Auto) 1.4 (0-4) % Baso % (Auto) 1.0 (0-2) % Lymph # (Auto) 2.5 (1.2-4.9) X10*3/uL [place] # (Auto) 0.3 (0.1-1.2) X10*3/uL Eos # (Auto) 0.1 (0.0-0.4) X10*3/uL Baso # (Auto) 0.1 (0.0-0.2) X10*3/uL Abs Immat Gran (auto) 0.02 (0.00-0.03) X10*3/uL Absolute Neuts (auto) 4.3 (2.0-8.3) x10*3/uL Absolute Nucleated RBC 0.000 (0.0-0.012) X10*3/uL Nucleated RBC % (auto) 0.0 (0.0-0.2) /100WBC Sodium 145 (135-145) mmol/L Potassium 3.5 (3.3-5.1) mmol/L Chloride 109 H (96-108) mmol/L Carbon Dioxide 24 (22-29) mmol/L Anion Gap 16 (12-20) BUN 11 (9-16) mg/dL Creatinine 0.73 (0.5-1.4) mg/dL Estim Creat Clear Calc 79.7 Estimated GFR > 60 Random Glucose 175 H (60-115) mg/dL Calcium 9.5 (8.4-10.2) mg/dL Total Bilirubin 0.2 (0.0-1.0) mg/dL AST 20 (5-31) U/L ALT 19 (0-31) U/L Alkaline Phosphatase 76 (39-117) U/L Total Protein 7.5 (6.5-8.0) g/dL Albumin 4.5 (3.5-5.0) g/dL Beta HCG, Quant 7 mIU/mL Urine Color Yellow Urine Appearance Clear Urine pH 5.5 (5.0-9.0) Ur Specific [place] 1.020 (1.005-1.025) Urine Protein Trace (Neg-Trace) mg/dL Urine Glucose (UA) Negative (Negative) mg/dL Urine Ketones Negative (Negative) mg/dL Urine Blood Negative (Negative) Urine Nitrite Negative (Negative) Ur Leukocyte Esterase Negative (Negative) Urine Opiates Screen Not Detected (Not Detect) Urine Fentanyl Screen Not Detected (Not Detect) Ur Barbiturates Screen Not Detected (Not Detect) Ur Phencyclidine Scrn Not Detected (Not Detect) Ur Amphetamines Screen Not Detected (Not Detect) U Benzodiazepines Scrn Not Detected (Not Detect) Urine Cocaine Screen Not Detected (Not Detect) U Marijuana (THC) Screen POSITIVE H (Not Detect) Ethyl Alcohol 409 H* mg/dL COVID-19 (CARITO) Negative (Negative) COVID-19 Clin Com See Note Discharge Plan Discharge Clinical Impression: Alcohol use disorder Depression Qualifiers: Depression Type: unspecified Qualified Code(s): F32.A - Depression, unspecified Alcohol intoxication Qualifiers: Complication of substance-induced condition: uncomplicated Qualified Code(s): F 10.920 - Alcohol use, unspecified with intoxication, uncomplicated Patient Disposition: Home, Self-Care Instructions: Depression (DC), Alcohol Intoxication (ED), Abuse of Alcohol (ED) Additional Instructions: decrease your alcohol intake. consider detox if you need help. talk to your doctor and therapist. return for any worsening symptoms or concerns. we can help with addiction and mental health. Prescriptions: No Action mirtazapine 30 mg Tablet 30 mg PO BEDTIME 30 Days Qty: 30 1RF omeprazole 20 mg Capsule,Delayed Release(Dr/Ec) 20 mg PO DAILY@0630 30 Days Qty: 30 1RF sertraline 50 mg Tablet 50 mg PO DAILY 30 Days Qty: 30 1RF thiamine mononitrate (vit B1) 100 mg Tablet 100 mg PO DAILY 30 Days Qty: 30 1RF
[2023-04-26 11:54] VITALS: BP 130/86; PULSE 18; RESP 18; TEMP 36.9; O2SAT 93; BMI 20.8
[2023-04-26 12:12] LABS: MANUAL DIFF FLAG NO
[2023-04-26 12:14] LABS: Basophils Absolute Auto 0.1 X10*3/uL (0.0-0.2); Eosinophils Absolute Auto 0.1 X10*3/uL (0.0-0.4); Eosinophils Percent Auto 1.4 % (0-4); Hematocrit 42.7 % (37.0-47.0); Hemoglobin 14.5 g/dl (12.0-16.0); Imm Gran Abs Auto 0.02 X10*3/uL (0.00-0.03); Imm Gran Pct Auto 0.3 % (0.0-0.4); Lymphocytes Absolute Auto 2.5 X10*3/uL (1.2-4.9); Lymphocytes Percent Auto 34.3 % (20-40); Mean Corpuscular Hemoglobin 33.6 pg (27.0-33.0); Mean Corpuscular Volume 98.8 fL (80.0-98.0); Mean Platelet Volume 8.6 fL (9.4-12.3); Monocytes Absolute Auto 0.3 X10*3/uL (0.1-1.2); Monocytes Percent Auto 4.6 % (2-11); Neutrophils Absolute Auto 4.3 x10*3/uL (2.0-8.3); Neutrophils Percent Auto 58.4 % (45-73); Platelet Count 410 X10*3/uL (160-400); Red Blood Count 4.32 X10*6/uL (4.20-5.50); Red Cell Distribution Width 13.2 % (11.0-16.0); White Blood Count 7.3 X10*3/uL (4.8-10.8)
[2023-04-26 12:34] LABS: Alanine Aminotransferase 19 U/L (0-31); Albumin Level 4.5 g/dL (3.5-5.0); Alkaline Phosphatase 76 U/L (39-117); Anion Gap 16 (12-20); Aspartate Amino Transferase 20 U/L (5-31); Bilirubin Total 0.2 mg/dL (0.0-1.0); Blood Urea Nitrogen 11 mg/dL (9-16); Calcium 9.5 mg/dL (8.4-10.2); Carbon Dioxide 24 mmol/L (22-29); Chloride 109 mmol/L (96-108); Creatinine Clr Calc Pharmacy 79.7; Estimated Glomerular Filt Rate > 60; Ethanol 409 mg/dL; Glucose Random 175 mg/dL (60-115); Potassium 3.5 mmol/L (3.3-5.1); Sodium 145 mmol/L (135-145); Total Protein 7.5 g/dL (6.5-8.0)
[2023-04-26 12:38] LABS: COVID-19 Test Negative (Negative); IDNOW Serial# 152EDE1D
--- NOTE | 2023-04-26 13:34 | ED.ALCOHOL ---
HPI - Alcohol General Chief Complaint: ETOH/Substance Use Stated Complaint: crisis Time Seen by Provider: 04/26/23 13:16 Source: patient Mode of arrival: ambulatory Limitations: other (Intoxicated) History of Present Illness HPI narrative: Patient comes to the emergency room accompanied by her boyfriend. Patient states that she is very emotional. Complaining of anxiety and depression, denies suicidal or homicidal ideation. According to the boyfriend who is at bedside, states that yesterday the patient had an appointment with her therapist that ?set her off? and since then, patient has been intermittently crying. Patient states that she is looking for help with anxiety and depression. Patient has been previously hospitalized for depression and alcohol use disorder Related Data Previous Rx's Medication Instructions Recorded mirtazapine 30 mg tablet 30 mg PO BEDTIME 30 days #30 tabs 03/08/23 omeprazole 20 mg capsule,delayed 20 mg PO DAILY@0630 30 days #30 03/08/23 release caps sertraline 50 mg tablet 50 mg PO DAILY 30 days #30 tabs 03/08/23 thiamine mononitrate (vit B1) 100 100 mg PO DAILY 30 days #30 tabs 03/08/23 mg tablet Allergies Allergy/AdvReac Type Severity Reaction Status Date / Time droperidol [From INAPSINE] Allergy Severe MUSCLE Verified 03/01/23 16:12 CRAMPS Review of Systems Review of Systems: Constitutional : No Weight loss, No Fever, No Chills, No Night Sweats, No Fatigue, No Malaise ENT/Mouth : No Hearing loss, No Ear Pain, No Nasal Congestion, No Sinus Pain, No Hoarseness, No sore throat, No Rhinorrhea, No Swallowing Difficulty Eyes: No Eye Pain, No Swelling, No Redness, No Foreign Body, No Discharge, No Vision Changes Cardiovascular : No Chest Pain, No SOB, No Dyspnea on Exertion, No Orthopnea, No Edema, No Palpitations Respiratory : No Cough, No Sputum, No Wheezing, No Smoke Exposure, No Dyspnea Gastrointestinal : No Nausea, No Vomiting, No Diarrhea, No Constipation, No abdominal Pain, No Hematochezia, No Melena Genitourinary : no irregular bleeding, No Dysuria, No Urinary Frequency, No Hematuria, No Urinary Incontinence, No Urgency, No Flank Pain, No Urinary Flow Changes, No Hesitancy Musculoskeletal : No joint pain, No Myalgias, No Joint Swelling Skin : No Skin Lesions, No rash Neuro : No Weakness, No Numbness, No Paresthesias, No Loss of Consciousness, No Dizziness, No Headache Psych : Complaining of anxiety and depression, no SI or HI, admits to heavily drinking alcohol Heme/Lymph: No Bruising, No Bleeding,No Lymphadenopathy Endocrine : No Polyuria, No Polydipsia, No Temperature Intolerance [facility] Past Medical History Medical History (Updated 04/26/23 @ 13:43 by Irma Wills MD) Alcohol use disorder Depression Social History Social History Household Members: Significant Other and Children Housing: House Do you presently have visiting nurse or other home services: No Unable to assess alcohol history related to: Unknown Patient Tobacco Use Status: Current everyday Tobacco user Tobacco use type: Cigarette Cigarette Packs Per Day: 0.1 Cigarettes Per Day: 2.0 Second Hand Smoke Exposure: No Substance Use Type: Marijuana Advance Directives: No service: No Sexual orientation: Straight/Heterosexual Physical Exam ED Vital Signs: Vital Signs - 24 hr 04/26/23 11:54 Temperature 98.5 F Pulse Rate 18 L Respiratory Rate 18 Blood Pressure 130/86 Pulse Oximetry 93 Oxygen Delivery Method Room Air BMI result Body Mass Index 20.8 Const Other: Appearance: Alert. Oriented X3. Crying. Intoxicated Eyes: Pupils equal, round and reactive to light. ENT: Pharynx normal. Neck: Normal inspection. Neck supple. No lymph nodes noted. No crepitus CVS: Normal heart rate and rhythm. Pulses normal. Normal S1 and S2 Respiratory: No respiratory distress. Breath sounds normal. No Wheezing. No rales Abdomen: Soft and nontender. No rigidity. No distention. Skin: Skin warm and dry. Normal skin color. Normal skin turgor. Extremities: No lower extremity edema. No Lacerations. No Rash Neuro: Oriented X 3. No motor deficit. No sensory deficit. Moving all extremities. No slurred speech. CN 2 through 12 grossly intact Psych: calm, cooperative, crying, intoxicated Medical Decision Making Medical Decision Making MDM Narrative: -my interpretation of labs: Hematology and chemistry within normal limits, ETOH level 409 -patient is not suicidal or homicidal, section 12 is not indicated -patient is on physician observation, waiting to metabolize alcohol and waiting for the care team to evaluate the patient. -patient is agitated, crying. Patient requesting IM medication. Patient will be given 2 mg IM Ativan and 50 mg IM Benadryl. This is not restrained, this medication will be given per patient's request. Differential Diagnosis Differential Diagnoses: The differential diagnosis associated with the presentation includes (Anxiety, depression, alcohol abuse) Admission/Observation Consideration of admission/observation: Escalation of care including admission/observation considered (Patient is under physician observation, waiting for care team to determine patient's disposition) Lab Data 04/26/23 12:06 04/26/23 12:06 Labs: Lab Results 04/26/23 Range/Units 12:06 WBC 7.3 (4.8-10.8) X10*3/uL RBC 4.32 (4.20-5.50) X10*6/uL Hgb 14.5 (12.0-16.0) g/dl Hct 42.7 (37.0-47.0) % MCV 98.8 H (80.0-98.0) fL MCH 33.6 H (27.0-33.0) pg MCHC 34.0 (31.0-35.0) g/dl RDW 13.2 (11.0-16.0) % Plt Count 410 H (160-400) X10*3/uL MPV 8.6 L (9.4-12.3) fL Immature Gran % (Auto) 0.3 (0.0-0.4) % Neut % (Auto) 58.4 (45-73) % Lymph % (Auto) 34.3 (20-40) % [place] % (Auto) 4.6 (2-11) % Eos % (Auto) 1.4 (0-4) % Baso % (Auto) 1.0 (0-2) % Lymph # (Auto) 2.5 (1.2-4.9) X10*3/uL [place] # (Auto) 0.3 (0.1-1.2) X10*3/uL Eos # (Auto) 0.1 (0.0-0.4) X10*3/uL Baso # (Auto) 0.1 (0.0-0.2) X10*3/uL Abs Immat Gran (auto) 0.02 (0.00-0.03) X10*3/uL Absolute Neuts (auto) 4.3 (2.0-8.3) x10*3/uL Absolute Nucleated RBC 0.000 (0.0-0.012) X10*3/uL Nucleated RBC % (auto) 0.0 (0.0-0.2) /100WBC Sodium 145 (135-145) mmol/L Potassium 3.5 (3.3-5.1) mmol/L Chloride 109 H (96-108) mmol/L Carbon Dioxide 24 (22-29) mmol/L Anion Gap 16 (12-20) BUN 11 (9-16) mg/dL Creatinine 0.73 (0.5-1.4) mg/dL Estim Creat Clear Calc 79.7 Estimated GFR > 60 Random Glucose 175 H (60-115) mg/dL Calcium 9.5 (8.4-10.2) mg/dL Total Bilirubin 0.2 (0.0-1.0) mg/dL AST 20 (5-31) U/L ALT 19 (0-31) U/L Alkaline Phosphatase 76 (39-117) U/L Total Protein 7.5 (6.5-8.0) g/dL Albumin 4.5 (3.5-5.0) g/dL Ethyl Alcohol 409 H* mg/dL COVID-19 (CARITO) Negative (Negative) COVID-19 Clin Com See Note Critical Care Time Critical Care Time Critical Care Time: Yes Total Critical Care Time: 45 Attestation: I have personally provided critical care time. Time includes review of lab data, radiology results, discussion with consultants, and monitoring for potential decompensation. Intervention performed as documented. Discharge Plan Discharge Clinical Impression: Depression, Alcohol intoxication, Alcohol use disorder Patient Disposition: Still a Patient Prescriptions: No Action mirtazapine 30 mg Tablet 30 mg PO BEDTIME 30 Days Qty: 30 1RF omeprazole 20 mg Capsule,Delayed Release(Dr/Ec) 20 mg PO DAILY@0630 30 Days Qty: 30 1RF sertraline 50 mg Tablet 50 mg PO DAILY 30 Days Qty: 30 1RF thiamine mononitrate (vit B1) 100 mg Tablet 100 mg PO DAILY 30 Days Qty: 30 1RF
--- NOTE | 2023-04-26 13:35 | PC.NURSE ---
pt unable to participate in multiple questions, pt unsure of multiple questions, continues to say I can't help my baby . , Adalberto, at bedside provided collateral information, reports he has been with the pt for 6 years and this is her second episode . per BF , no alcohol at the house I dont know how she got a hold of it , he reports she went to therapy yesterday and came home like this. questions answered through assistance of BF best knowledge.
[2023-04-26 14:00] LABS: HCG Quantitative 7 mIU/mL
[2023-04-26 14:20] VITALS: BP 97/53; PULSE 97; RESP 16; O2SAT 92
--- NOTE | 2023-04-26 14:27 | PC.NURSE ---
pt hysterical when brought into ED from waiting room, pt offered medication and requested IM medication to calm down . Ativan 2mg and Benadryl 50mg ordered
[2023-04-26 14:38] VITALS: BP 112/82; PULSE 93; RESP 18; O2SAT 94
--- NOTE | 2023-04-26 14:39 | PC.NURSE ---
pt resting in bed comfortable with BF at bedside. decision to hold IM medications at this time as pt is no longer hysterical, resting omfortable, no complaints. awaiting CARE team
[2023-04-26] MEDS: Ondansetron ODT 4 MG TAB.RAPDIS TRANSLINGU (14:44)
[2023-04-26 15:51] LABS: Appearance Urine Clear; Color Urine Yellow; Glucose Urine UA Negative (Negative); Leukocyte Esterase Urine Negative (Negative); Nitrite Urine Negative (Negative); PH 5.5 (5.0-9.0); Urine Blood Negative (Negative); Urine Ketones Negative (Negative); Urine Protein Trace mg/dL (Neg-Trace)
[2023-04-26 15:59] LABS: Amphetamine Screen Urine Not Detected (Not Detect); Barbiturates, Urine Not Detected (Not Detect); Benzodiazepines Screen Urine Not Detected (Not Detect); Cannabinoid Screen Urine POSITIVE (Not Detect); Cocaine Screen Urine Not Detected (Not Detect); Fentanyl, urine Not Detected (Not Detect); Opiate Screen Urine Not Detected (Not Detect); Phencyclidine Screen Urine Not Detected (Not Detect)
--- NOTE | 2023-04-26 16:22 | PC.NURSE ---
pt severely labile, tearful and irritable
[2023-04-26] MEDS: LORazepam 1 MG TABLET 2 MG PO (16:36)
--- NOTE | 2023-04-26 18:34 | PC.NURSE ---
pts partner, SELENA
--- NOTE | 2023-04-26 18:47 | PC.NURSE ---
pt currently resting with eyes closed.
[2023-04-26 22:15] VITALS: BP 66/61; PULSE 95; RESP 16; TEMP 36.4; O2SAT 93
[2023-04-26 23:08] VITALS: BP 106/63; PULSE 72; RESP 16
--- NOTE | 2023-04-27 02:30 | PC.NURSE ---
PER CARE TEAM ASSESSMENT PLAN IS FOR THE PT TO HAVE FOLLOW UP IN THE MORNING
[2023-04-27 06:30] VITALS: BP 124/84; PULSE 82; RESP 12; O2SAT 96
--- NOTE | 2023-04-27 09:21 | PC.NURSE ---
Patient sitting up eating breakfast, patient not interested in detox at this time, no signs/symptoms of withdrawal, states has support at home, awaiting care team.
== END 2023-04-27 10:13 | disposition home or self-care (01) ==
PROVIDERS: Emergency Provider Emergency Medicine
DX: F33.1 Major depressive disorder, recurrent, moderate (principal); F10.129 Alcohol abuse with intoxication, unspecified; Y90.8 Blood alcohol level of 240 mg/100 ml or more; F17.200 Nicotine dependence, unspecified, uncomplicated; Z79.899 Other long term (current) drug therapy; Z11.52 Encounter for screening for COVID-19
CPT/HCPCS: 80053; 80307; 81003; 84702; 85025; 87635; 99284; J1200; J2060; S9485

== ENCOUNTER 2023-11-28 09:26 | Inpatient (IN) | payer MEDICAID, OTHER, SELFPAY ==
[2023-11-28] VITALS (7 sets, daily range): BP systolic 106–159; BP diastolic 60–90; PULSE 62–76; RESP 12–18; TEMP 36.4–37.2; O2SAT 95–100; BMI 25.0
--- NOTE | ~2023-11-28 | CT_ITS ---
EXAMINATION: CT ABDOMEN AND PELVIS WITH CONTRAST CLINICAL INFORMATION: Nausea/vomiting/diarrhea.. Abdominal pain COMPARISON: None available. TECHNIQUE: Multidetector volumetric images were obtained from the superior aspect of the liver through the pubic symphysis following administration 85 mL of Omnipaque 350 intravenous contrast. Sagittal and coronal reformatted images were obtained on the technologist's workstation. Oral contrast: No This CT examination was performed using dose optimization techniques as appropriate, variously including the following: *Automated exposure control *Adjustment of mA and/or kV according to patient size (this includes techniques or standardized protocols for targeted exams where dose is matched to indication/reason for exam; i.e. extremities or head) *Use of iterative reconstruction technique DLP: 425 mGy-cm FINDINGS: LUNG BASES: The visualized lung bases are unremarkable. LIVER, GALLBLADDER, AND BILIARY TREE: The liver is normal in size, shape, and attenuation. No focal hepatic lesion or biliary ductal dilatation is present. The gallbladder is unremarkable with no evidence of radiopaque gallstones, gallbladder wall thickening, or obvious pericholecystic inflammatory changes. PANCREAS: Unremarkable. SPLEEN: Unremarkable. ADRENAL GLANDS: Unremarkable. KIDNEYS AND URETERS: The kidneys are normal in size, shape, and attenuation. No hydronephrosis, hydroureter, or calculi seen. No perinephric stranding. BLADDER: Unremarkable. GASTROINTESTINAL TRACT: There is intramural fat deposits in seen throughout the colon without distention, a nonspecific finding. The small bowel loops are normal caliber. Appendix is not visualized. Scattered diverticuli are seen in sigmoid colon. No free air or free fluid seen. ABDOMINAL WALL: Small umbilical hernia containing fat is noted. LYMPH NODES: Normal. VASCULAR: Unremarkable. PELVIC VISCERA: Unremarkable. OSSEOUS STRUCTURES: Unremarkable. CT/CT abdomen pelvis w IV con IMPRESSION: No acute intra-abdominal process seen. Diffuse colonic intramural fat, nonspecific findings but can be seen with previous inflammatory or infectious etiology. Fleischner guidelines were followed. Electronically signed by: Greg Steinberg MD 11/28/2023 07:39 PM EDT
[2023-11-28] MEDS: Ondansetron ODT 4 MG TAB.RAPDIS TRANSLINGU (09:46)
[2023-11-28 12:10] LABS: MANUAL DIFF FLAG NO
[2023-11-28 12:13] LABS: Basophils Absolute Auto 0.1 X10*3/uL (0.0-0.2); Basophils Percent Auto 0.4 % (0-2); Hematocrit 39.5 % (37.0-47.0); Hemoglobin 13.7 g/dl (12.0-16.0); Imm Gran Abs Auto 0.06 X10*3/uL (0.00-0.03); Imm Gran Pct Auto 0.4 % (0.0-0.4); Lymphocytes Absolute Auto 0.9 X10*3/uL (1.2-4.9); Mean Corpuscular HGB Conc 34.7 g/dl (31.0-35.0); Mean Corpuscular Hemoglobin 33.5 pg (27.0-33.0); Mean Corpuscular Volume 96.6 fL (80.0-98.0); Mean Platelet Volume 8.9 fL (9.4-12.3); Monocytes Absolute Auto 0.6 X10*3/uL (0.1-1.2); Monocytes Percent Auto 3.8 % (2-11); Neutrophils Absolute Auto 13.1 x10*3/uL (2.0-8.3); Neutrophils Percent Auto 89.4 % (45-73); Platelet Count 316 X10*3/uL (160-400); Red Blood Count 4.09 X10*6/uL (4.20-5.50); Red Cell Distribution Width 13.4 % (11.0-16.0); White Blood Count 14.6 X10*3/uL (4.8-10.8)
[2023-11-28 12:28] LABS: Alanine Aminotransferase 18 U/L (0-31); Albumin Level 4.6 g/dL (3.5-5.0); Alkaline Phosphatase 79 U/L (39-117); Anion Gap 17 (12-20); Aspartate Amino Transferase 18 U/L (5-31); Bilirubin Direct 0.2 mg/dL (0.0-0.5); Bilirubin Total 0.7 mg/dL (0.0-1.0); Blood Urea Nitrogen 14 mg/dL (9-16); Carbon Dioxide 27 mmol/L (22-29); Chloride 106 mmol/L (96-108); Creatinine Clr Calc Pharmacy 71.4; Estimated Glomerular Filt Rate > 60; Glucose Random 145 mg/dL (60-115); Lipase 17 U/L (8-78); Potassium 3.9 mmol/L (3.3-5.1); Sodium 146 mmol/L (135-145); Total Protein 7.7 g/dL (6.5-8.0)
[2023-11-28 12:32] LABS: Lactic Acid 4.3 mmol/L (0.5-2.0)
[2023-11-28 12:54] LABS: Influenza A PCR NEGATIVE (Negative); Influenza B PCR NEGATIVE (Negative); Resp Syncy Virus RNA Qual PCR NEGATIVE (Negative); SARS COV2 PCR INHOUSE NEGATIVE (Negative)
--- NOTE | 2023-11-28 13:01 | ED.NAVMDI ---
HPI - Nausea/Vomiting/Diarrhea General Chief complaint: Nausea/Vomiting/Diarrhea Stated complaint: FLU LIKE,N/V/D THIS AM PER EMS Time Seen by Provider: 11/28/23 12:59 Source: patient, EMS, RN notes reviewed and old records reviewed Mode of arrival: EMS History of Present Illness ED Provider: Sara Falk PA-C HPI Narrative: 53-year-old female with a past medical history depression, ETOH use disorder, presenting to the ED complaining of abdominal pain, nausea, vomiting, and diarrhea x midnight last night. Denies hematemesis or bloody BMs. Denies recent travel, sick contacts, suspicious food intake, dysuria/hematuria. Denies illicit drug use, last drank ETOH 2 days ago. Does report history of ETOH withdrawal, denies known seizures. MD elicited complaint: nausea, vomiting, diarrhea and abdominal pain Related Data Previous Rx's ?Medication ?Instructions ?Recorded mirtazapine 30 mg tablet 30 mg PO BEDTIME 30 days #30 tabs 03/08/23 omeprazole 20 mg capsule,delayed 20 mg PO DAILY@0630 30 days #30 03/08/23 release caps sertraline 50 mg tablet 50 mg PO DAILY 30 days #30 tabs 03/08/23 thiamine mononitrate (vit B1) 100 100 mg PO DAILY 30 days #30 tabs 03/08/23 mg tablet Allergies Allergy/AdvReac Type Severity Reaction Status Date / Time droperidol [From INAPSINE] Allergy Severe MUSCLE Verified 11/28/23 09:42 CRAMPS Review of Systems Review of Systems: Yes all other systems are reviewed and are negative Constitutional: Constitutional: Reports as per HPI [facility] Past Medical History Attestation statement: The following information was validated with the patient. Source: old records reviewed Medical History Alcohol use disorder Depression Social History Social History Household Members: Significant Other and Children Housing: House Do you presently have visiting nurse or other home services: No Unable to assess alcohol history related to: Unknown Alcohol intake: current Patient Tobacco Use Status: Current everyday Tobacco user Tobacco use type: Cigarette Cigarette Packs Per Day: 0.1 Cigarettes Per Day: 2.0 Smoked in Last 30 Days: No Second Hand Smoke Exposure: No Use of substances other than those prescribed or required for medical reasons: No Substance Use Type: Marijuana Advance Directives: No Advance Directives Information Provided: Yes Do you have a plan to hurt others: No Plan service: No Sexual orientation: Straight/Heterosexual Physical Exam Vital Signs: Vital Signs: Last Vital Signs Temp 98.9 F 11/28/23 18:00 Pulse 74 11/28/23 18:00 Resp 16 11/28/23 18:00 BP 106/61 11/28/23 18:00 Pulse Ox 100 11/28/23 18:00 O2 Del Method Room Air 11/28/23 18:00 BMI result Body Mass Index 25.0 Const: General: cooperative, healthy appearing and no acute distress Orientation/consciousness: patient oriented x3 Limitations: no limitations HEENT: Head: Yes normal to inspection and Yes atraumatic Ears: hearing grossly normal bilaterally General nose exam: Normal external nose present Face and sinus: Yes normal facial exam Eyes: General: appearance normal, both eyes and all related structures EOM: EOMs intact bilaterally Neck: Neck: Yes normal visual inspection and Yes no meningeal signs Resp: Effort & Inspection: normal respiratory effort and no respiratory distress Auscultation: clear to auscultation bilaterally Cardio: Rate: regular rate Heart sounds: S1 normal heart sound present and S2 normal heart sound present GI: Inspection: Yes normal to inspection Palpation (GI): Soft to palpation, Tenderness to palpation present (GI) (Diffusely) with no rebound tenderness, no guarding and not rigid : General: Yes no CVA tenderness Back/Spine/Pelvis: Back: no CVA tenderness Skin: Rashes: no rashes Wounds: no wounds Neuro: General: patient oriented x3, tone normal and no meningeal signs Cranial nerves: Yes CN's II-XII intact bilaterally Gait exam (Neuro): Normal gait present Extrem: General: Yes normal to inspection Course Course Course Narrative: -1340--leukocytosis of 14.6. Lactic acidosis of 4.3 > suspect from retching/dehydration & ETOH use d/o rather than severe sepsis -ethanol negative. Viral studies negative -repeat lactic acid improved to 2.5 after IVF. -tox screen positive for THC -1737--lactic acid elevated again to 3.5 > will hang maintenance fluids and repeat. ?hemolyzed. CT AP still pending -lactic still elevated to 3.3. Patient reports symptomatic improvement. We will continue to monitor and follow-up CT results. Plan is likely admission -1900-- ED care transferred to [facility] pending lactic acid monitoring and CT. Dispo per results Reevaluation(s) Reevaluation #1: I Lizz Carrillo PA-C have accepted care of the patient has signed out pending imaging and admission the patient has met sepsis criteria, her lactic level is elevated, this could also be in the setting of dehydration and her alcohol use, although her liver function is at baseline. She has received her weight based IV fluid resuscitation, and Zosyn . She is hemodynamically stable pending CT scan I have independently reviewed the following tests: CT abdomen and pelvis:CT ABDOMEN AND PELVIS WITH CONTRAST CLINICAL INFORMATION: Nausea/vomiting/diarrhea.. Abdominal pain COMPARISON: None available. TECHNIQUE: Multidetector volumetric images were obtained from the superior aspect of the liver through the pubic symphysis following administration 85 mL of Omnipaque 350 intravenous contrast. Sagittal and coronal reformatted images were obtained on the technologist's workstation. Oral contrast: No This CT examination was performed using dose optimization techniques as appropriate, variously including the following: *Automated exposure control *Adjustment of mA and/or kV according to patient size (this includes techniques or standardized protocols for targeted exams where dose is matched to indication/reason for exam; i.e. extremities or head) *Use of iterative reconstruction technique DLP: 425 mGy-cm FINDINGS: LUNG BASES: The visualized lung bases are unremarkable. LIVER, GALLBLADDER, AND BILIARY TREE: The liver is normal in size, shape, and attenuation. No focal hepatic lesion or biliary ductal dilatation is present. The gallbladder is unremarkable with no evidence of radiopaque gallstones, gallbladder wall thickening, or obvious pericholecystic inflammatory changes. PANCREAS: Unremarkable. SPLEEN: Unremarkable. ADRENAL GLANDS: Unremarkable. KIDNEYS AND URETERS: The kidneys are normal in size, shape, and attenuation. No hydronephrosis, hydroureter, or calculi seen. No perinephric stranding. BLADDER: Unremarkable. GASTROINTESTINAL TRACT: There is intramural fat deposits in seen throughout the colon without distention, a nonspecific finding. The small bowel loops are normal caliber. Appendix is not visualized. Scattered diverticuli are seen in sigmoid colon. No free air or free fluid seen. ABDOMINAL WALL: Small umbilical hernia containing fat is noted. LYMPH NODES: Normal. VASCULAR: Unremarkable. PELVIC VISCERA: Unremarkable. OSSEOUS STRUCTURES: Unremarkable. CT/CT abdomen pelvis w IV con IMPRESSION: No acute intra-abdominal process seen. Diffuse colonic intramural fat, nonspecific findings but can be seen with previous inflammatory or infectious etiology. Fleischner guidelines were followed. Electronically signed by: Greg Steinberg MD 11/28/2023 07:39 PM EDT Medications Administered Generic Name Dose Route Start Last Admin Trade Name Freq PRN Reason Stop Dose Admin Lactated Ringer's 1,000 mls @ 100 mls/hr 11/28/23 18:15 11/28/23 18:07 Lr IVCONT 100 mls/hr .Q10H MARIO Administration Discontinued Medications Generic Name Dose Route Start Last Admin Trade Name Freq PRN Reason Stop Dose Admin Sodium Chloride 2,041.17 mls @ 2,041.17 mls/hr 11/28/23 13:01 11/28/23 15:32 Ns 30 ml/kg infuse over 1 hr (2041.17 ml) 11/28/23 14:00 Infused IV Infusion .Q1H STA Piperacillin Sod/Tazobactam 50 mls @ 100 mls/hr 11/28/23 13:06 11/28/23 15:00 Sod 3.375 gm/ Sodium Chloride IV 11/28/23 13:35 Infused ONCE ONE Infusion Lactated Ringer's 1,000 mls @ 999 mls/hr 11/28/23 16:15 11/28/23 17:00 Lr IV 11/28/23 17:15 Infused .Q1H1M MARIO Infusion Iohexol 100 ml 11/28/23 16:55 11/28/23 16:55 Iohexol 350 Mg/Ml 100 Ml Infus..Btl IV 11/28/23 16:56 85 ml ONCE ONE Administration Lorazepam 0.5 mg 11/28/23 13:37 11/28/23 14:19 Lorazepam 2 Mg/Ml Vial IVPUSH 11/28/23 13:38 0.5 mg ONCE ONE Administration Metoclopramide HCl 10 mg 11/28/23 13:38 11/28/23 14:20 Metoclopramide Hcl 10 Mg/2 Ml Vial IVPUSH 11/28/23 13:39 10 mg ONCE ONE Administration Ondansetron HCl 4 mg 11/28/23 09:43 11/28/23 09:46 Ondansetron Odt 4 Mg Tab.Viet TRANSLINGU 11/28/23 09:44 4 mg ONCE ONE Administration Ondansetron HCl 4 mg 11/28/23 16:09 11/28/23 16:18 Ondansetron Hcl 4 Mg/2 Ml Vial IVPUSH 11/28/23 16:10 4 mg ONCE ONE Administration Medical Decision Making Medical Decision Making [facility] Narrative: 53-year-old female with a past medical history depression, ETOH use disorder, presenting to the ED complaining of abdominal pain, nausea, vomiting, and diarrhea x midnight last night. On exam vital signs stable, NAD, nontoxic appearing, abdomen soft diffusely tender, no rebound or guarding. Appears uncomfortable. No tongue fasciculations. Concern for gastroenteritis vs food poisoning vs ETOH abuse/withdrawal. Rule out pancreatitis vs appendicitis/diverticulitis. Lower suspicion for severe sepsis at this time Plan: Labs, UA, CT AP, viral studies, IVF, re-evaluate Please refer to course for remaining clinical decision making, interpretation of labs/imaging results, and discussions with consultants and/or family members. Differential Diagnosis Differential Diagnoses: The differential diagnosis associated with the presentation includes As above Admission/Observation Consideration of admission/observation: Escalation of care including admission/observation considered Lab Data [facility] Lab Attestation statement: I reviewed the patient's lab results. 11/28/23 12:00 11/28/23 12:00 Labs: Lab Results 11/28/23 11/28/23 11/28/23 Range/Units 12:00 14:18 15:58 WBC 14.6 H (4.8-10.8) X10*3/uL RBC 4.09 L (4.20-5.50) X10*6/uL Hgb 13.7 (12.0-16.0) g/dl Hct 39.5 (37.0-47.0) % MCV 96.6 (80.0-98.0) fL MCH 33.5 H (27.0-33.0) pg MCHC 34.7 (31.0-35.0) g/dl RDW 13.4 (11.0-16.0) % Plt Count 316 (160-400) X10*3/uL MPV 8.9 L (9.4-12.3) fL Immature Gran % (Auto) 0.4 (0.0-0.4) % Neut % (Auto) 89.4 H (45-73) % Lymph % (Auto) 6.0 L (20-40) % [place] % (Auto) 3.8 (2-11) % Eos % (Auto) 0.0 (0-4) % Baso % (Auto) 0.4 (0-2) % Lymph # (Auto) 0.9 L (1.2-4.9) X10*3/uL [place] # (Auto) 0.6 (0.1-1.2) X10*3/uL Eos # (Auto) 0.0 (0.0-0.4) X10*3/uL Baso # (Auto) 0.1 (0.0-0.2) X10*3/uL Abs Immat Gran (auto) 0.06 H (0.00-0.03) X10*3/uL Absolute Neuts (auto) 13.1 H (2.0-8.3) x10*3/uL Absolute Nucleated RBC 0.000 (0.0-0.012) X10*3/uL Nucleated RBC % (auto) 0.0 (0.0-0.2) /100WBC Sodium 146 H (135-145) mmol/L Potassium 3.9 (3.3-5.1) mmol/L Chloride 106 (96-108) mmol/L Carbon Dioxide 27 (22-29) mmol/L Anion Gap 17 (12-20) BUN 14 (9-16) mg/dL Creatinine 0.81 (0.5-1.4) mg/dL Estim Creat Clear Calc 71.4 Estimated GFR > 60 Random Glucose 145 H (60-115) mg/dL Lactic Acid 4.3 H* (0.5-2.0) mmol/L Lactic Acid F/U @ 2Hr 2.5 H* (0.5-2.0) mmol/L Lactic Acid F/U @ 4Hr (0.5-2.0) mmol/L Calcium 10.0 (8.4-10.2) mg/dL Magnesium 1.8 (1.6-2.6) mg/dL Total Bilirubin 0.7 (0.0-1.0) mg/dL Direct Bilirubin 0.2 (0.0-0.5) mg/dL AST 18 (5-31) U/L ALT 18 (0-31) U/L Alkaline Phosphatase 79 (39-117) U/L Total Protein 7.7 (6.5-8.0) g/dL Albumin 4.6 (3.5-5.0) g/dL Lipase 17 (8-78) U/L Urine Color Urine Appearance Urine pH (5.0-9.0) Ur Specific [place] (1.005-1.025) Urine Protein (Neg-Trace) mg/dL Urine Glucose (UA) (Negative) mg/dL Urine Ketones (Negative) mg/dL Urine Blood (Negative) Urine Nitrite (Negative) Ur Leukocyte Esterase (Negative) Urine RBC (0-2) /HPF Urine WBC (0-5) /HPF Ur Squamous Epith Cells (0-2) /HPF Urine Bacteria (None Seen) Hyaline Casts (0-2) /LPF Urine Test NEGATIVE (NEGATIVE) Urine Opiates Screen (Not Detect) Ur Buprenorphine Scrn (Not Detect) ng/mL Ur Oxycodone Screen (Not Detect) ng/mL Urine Methadone Screen (Not Detect) ng/mL Urine Fentanyl Screen (Not Detect) Ur Barbiturates Screen (Not Detect) Ur Phencyclidine Scrn (Not Detect) Ur Amphetamines Screen (Not Detect) U Benzodiazepines Scrn (Not Detect) Urine Cocaine Screen (Not Detect) U Marijuana (THC) Screen (Not Detect) Ethyl Alcohol < 10 mg/dL Influenza Type A (PCR) NEGATIVE (Negative) Influenza Type B (PCR) NEGATIVE (Negative) RSV RNA Qual (PCR) NEGATIVE (Negative) SARS-CoV-2 RNA (RT-PCR) NEGATIVE (Negative) 11/28/23 11/28/23 11/28/23 Range/Units 15:59 17:16 17:49 WBC (4.8-10.8) X10*3/uL RBC (4.20-5.50) X10*6/uL Hgb (12.0-16.0) g/dl Hct (37.0-47.0) % MCV (80.0-98.0) fL MCH (27.0-33.0) pg MCHC (31.0-35.0) g/dl RDW (11.0-16.0) % Plt Count (160-400) X10*3/uL MPV (9.4-12.3) fL Immature Gran % (Auto) (0.0-0.4) % Neut % (Auto) (45-73) % Lymph % (Auto) (20-40) % [place] % (Auto) (2-11) % Eos % (Auto) (0-4) % Baso % (Auto) (0-2) % Lymph # (Auto) (1.2-4.9) X10*3/uL [place] # (Auto) (0.1-1.2) X10*3/uL Eos # (Auto) (0.0-0.4) X10*3/uL Baso # (Auto) (0.0-0.2) X10*3/uL Abs Immat Gran (auto) (0.00-0.03) X10*3/uL Absolute Neuts (auto) (2.0-8.3) x10*3/uL Absolute Nucleated RBC (0.0-0.012) X10*3/uL Nucleated RBC % (auto) (0.0-0.2) /100WBC Sodium (135-145) mmol/L Potassium (3.3-5.1) mmol/L Chloride (96-108) mmol/L Carbon Dioxide (22-29) mmol/L Anion Gap (12-20) BUN (9-16) mg/dL Creatinine (0.5-1.4) mg/dL Estim Creat Clear Calc Estimated GFR Random Glucose (60-115) mg/dL Lactic Acid 3.3 H* (0.5-2.0) mmol/L Lactic Acid F/U @ 2Hr (0.5-2.0) mmol/L Lactic Acid F/U @ 4Hr 3.5 H* (0.5-2.0) mmol/L Calcium (8.4-10.2) mg/dL Magnesium (1.6-2.6) mg/dL Total Bilirubin (0.0-1.0) mg/dL Direct Bilirubin (0.0-0.5) mg/dL AST (5-31) U/L ALT (0-31) U/L Alkaline Phosphatase (39-117) U/L Total Protein (6.5-8.0) g/dL Albumin (3.5-5.0) g/dL Lipase (8-78) U/L Urine Color Yellow Urine Appearance Clear Urine pH 8.0 (5.0-9.0) Ur Specific [place] >= 1.030 H (1.005-1.025) Urine Protein 30 (1+) H (Neg-Trace) mg/dL Urine Glucose (UA) Negative (Negative) mg/dL Urine Ketones 15 (Negative) mg/dL Urine Blood Negative (Negative) Urine Nitrite Negative (Negative) Ur Leukocyte Esterase Negative (Negative) Urine RBC 0-2 (0-2) /HPF Urine WBC 0-5 (0-5) /HPF Ur Squamous Epith Cells 0-2 (0-2) /HPF Urine Bacteria None Seen (None Seen) Hyaline Casts 0-2 (0-2) /LPF Urine Test (NEGATIVE) Urine Opiates Screen Not Detected (Not Detect) Ur Buprenorphine Scrn Not Detected (Not Detect) ng/mL Ur Oxycodone Screen Not Detected (Not Detect) ng/mL Urine Methadone Screen Not Detected (Not Detect) ng/mL Urine Fentanyl Screen Not Detected (Not Detect) Ur Barbiturates Screen Not Detected (Not Detect) Ur Phencyclidine Scrn Not Detected (Not Detect) Ur Amphetamines Screen Not Detected (Not Detect) U Benzodiazepines Scrn Not Detected (Not Detect) Urine Cocaine Screen Not Detected (Not Detect) U Marijuana (THC) Screen POSITIVE H (Not Detect) Ethyl Alcohol mg/dL Influenza Type A (PCR) (Negative) Influenza Type B (PCR) (Negative) RSV RNA Qual (PCR) (Negative) SARS-CoV-2 RNA (RT-PCR) (Negative) Independent Interpretation I performed an independent interpretation of an: CT Scan Radiology Impression Discussion of test interpretation with radiology: I have reviewed the radiologist's reading. Independent Historian Clinical information obtained from an independent historian. History obtained from or confirmed by: EMS External Record Review External record reviewed: Inpatient record, Office record, Outpatient record, Prior outpatient labs, Prior outpatient radiology, Primary care record and Outside ED record Tests considered The following testing was considered but not selected: As above Chronic Conditions Patient?s care impacted by: Other Social Determinants Patient?s care significantly limited by Social Determinants of Health including: Alcoholism and drug addiction in family and Problems related to primary support group Discharge Plan Discharge Patient Disposition: Admitted As Inpatient Prescriptions: No Action mirtazapine 30 mg Tablet 30 mg PO BEDTIME 30 Days Qty: 30 1RF omeprazole 20 mg Capsule,Delayed Release(Dr/Ec) 20 mg PO DAILY@0630 30 Days Qty: 30 1RF sertraline 50 mg Tablet 50 mg PO DAILY 30 Days Qty: 30 1RF thiamine mononitrate (vit B1) 100 mg Tablet 100 mg PO DAILY 30 Days Qty: 30 1RF Print Language: Citizen Of [place]
[2023-11-28 13:34] LABS: Ethanol < 10 mg/dL; Magnesium 1.8 mg/dL (1.6-2.6)
[2023-11-28] MEDS: 0.9 % Sodium Chloride 2,041.17 ML 2041.17 ML IV (13:55)
[2023-11-28 14:06] LABS: Reflex Lactate? Lactic Acid Added
[2023-11-28] MEDS: Piperacillin Sodium/Tazobactam 3.375 GM in 0.9 % Sodium Chloride 50 ML IV (14:19)
[2023-11-28] MEDS: LORazepam 2 MG/ML VIAL 0.5 MG IVPUSH (14:19)
[2023-11-28] MEDS: Metoclopramide HCl 10 MG/2 ML VIAL IVPUSH (14:20)
--- NOTE | 2023-11-28 14:26 | PC.NURSE ---
Addendum entered by Lashaun Austin RN 11/28/23 14:28: BC needed to be drawn pre abx, drawn during IV line placement Original Note: Abx delayed d/t patient initally being placed in hallway, moved to monitored bed, 2 IVs placed, fluids and abx currently running.
[2023-11-28 14:49] LABS: ~Lactic Acid-LAB USE ONLY 2.5 mmol/L (0.5-2.0)
[2023-11-28 16:18] LABS: Amphetamine Screen Urine Not Detected (Not Detect); Barbiturates, Urine Not Detected (Not Detect); Benzodiazepines Screen Urine Not Detected (Not Detect); Buprenorphine Scr Not Detected (Not Detect); Cannabinoid Screen Urine POSITIVE (Not Detect); Cocaine Screen Urine Not Detected (Not Detect); Fentanyl, urine Not Detected (Not Detect); Methadone Screen, Urine Not Detected (Not Detect); Opiate Screen Urine Not Detected (Not Detect); Oxycodone Screen Urine Not Detected (Not Detect); Phencyclidine Screen Urine Not Detected (Not Detect)
[2023-11-28 16:18] LABS: UPreg QC Valid YES; Urine Pregnancy NEGATIVE (NEGATIVE)
[2023-11-28] MEDS: Lactated Ringers 1,000 ML 999 ML IV (16:18)
[2023-11-28] MEDS: ondansetron HCL 4 MG/2 ML VIAL IVPUSH (16:18)
[2023-11-28 16:21] LABS: Appearance Urine Clear; Color Urine Yellow; Glucose Urine UA Negative (Negative); Leukocyte Esterase Urine Negative (Negative); Nitrite Urine Negative (Negative); Specific Gravity - Urine >= 1.030 (1.005-1.025); UMIC TRIGGER UACC YES; Urine Blood Negative (Negative); Urine Ketones 15 mg/dL (Negative); Urine Protein 30 (1+) mg/dL (Neg-Trace)
[2023-11-28 16:23] LABS: Bacteria Urine None Seen (None Seen); Hyaline Casts Urine 0-2 /LPF (0-2); RBC Urine 0-2 /HPF (0-2); Squamous Epithelial Cell Urine 0-2 /HPF (0-2); WBC Urine 0-5 /HPF (0-5)
[2023-11-28 16:33] LABS: Reflex Lactate? 2 Y
[2023-11-28] MEDS: iohexoL 350 MG/ML 100 ML INFUS..BTL IV (16:55)
[2023-11-28 17:35] LABS: ~Lactic Acid-LAB USE ONLY 3.5 mmol/L (0.5-2.0)
--- NOTE | 2023-11-28 17:37 | PC.NURSE ---
Addendum entered by Lashaun Austin RN 11/28/23 18:12: Redraw lactic 3.3, Sara made aware. Original Note: Critical lab value lactic 3.5 recieved from lab, Sara MILLER made aware, would like have lactic redrawn as it went up after receiving 3L, is ordering now.
[2023-11-28] MEDS: Lactated Ringers 1,000 ML 100 ML IVCONT (18:07)
[2023-11-28 18:13] LABS: Lactic Acid 3.3 mmol/L (0.5-2.0)
[2023-11-28 19:52] LABS: Reflex Lactate? Lactic Acid Added
--- NOTE | 2023-11-28 20:18 | PC.NURSE ---
Plan for patient to be admitted to hospital, spoke to provider WICHO Valdes if she wanted the reflexed lactic drawn, plan to hold off on lactic redraw until admitting provider consulted.
--- NOTE | 2023-11-28 20:38 | PHA.MEDREC ---
Addendum entered by Kiah Prado RP 11/28/23 20:44: reviewed Addendum entered by Kiah Prado RP 11/28/23 20:44: Patient stated they are only taking 100 mg of sertraline. Original Note: Pharmacy Consult ? Medication Reconciliation Pharmacy has completed the medication reconciliation. Spoke to patient to confirm med list. Patient states she is no longer taking Vitamin B1 100mg. Patient states she takes Guanfacine 1 bid or 2 tabs daily.
[2023-11-28] MEDS: Pantoprazole Sodium 40 MG/10 ML VIAL IVPUSH (20:42)
--- NOTE | 2023-11-28 20:46 | P.HPHOSP_ITS ---
History of Present Illness Date of Service: 11/28/23 Chief Complaint: Nausea/vomiting This is a 53-year-old female with pertinent history of mood disorder, alcohol use disorder, gastroesophageal reflux disease who presents to the emergency department for evaluation of nausea and vomiting. Patient states her symptoms started on the day of presentation. He has been having multiple episodes of nausea and nonbloody emesis. Patient states she was throwing up every 5 minutes. Also has been having upper abdominal discomfort. Unable to tolerate p.o. intake. Had 1 episode of loose stool. Also complains of flatulence. Her last alcoholic drink was 2 days ago. Does have a history of alcohol use disorder with alcohol withdrawals in the past. No concern for alcohol withdrawal as per patient during this time. No history of alcohol withdrawal seizures. No fever, chills, chest pain, palpitations, shortness of breath, changes in urinary habits. In the emergency department, WBC 14.6, lactic acid 3.5 and patient with multiple episodes of vomiting Review of Systems 2 Constitutional: Constitutional: Reports fatigue, Reports malaise, Reports poor appetite and Reports weakness Cardiovascular: Cardiovascular: Reports no additional cardiovascular complaints Respiratory: Respiratory: Reports no additional respiratory complaints Gastrointestinal: Gastrointestinal: Reports abdominal pain, Reports nausea and Reports vomiting Genitourinary: Genitourinary: Reports no additional female genitourinary complaints Neurologic: Reports weakness Endocrine: Endocrine: Reports fatigue [facility] Medical History Alcohol use disorder Depression Pertinent family history: No family history of early CAD Social History Household Members: Significant Other and Children Housing: House Do you presently have visiting nurse or other home services: No Unable to assess alcohol history related to: Unknown Alcohol intake: current Patient Tobacco Use Status: Current everyday Tobacco user Tobacco use type: Cigarette Cigarette Packs Per Day: 0.1 Cigarettes Per Day: 2.0 Smoked in Last 30 Days: No Second Hand Smoke Exposure: No Use of substances other than those prescribed or required for medical reasons: No Substance Use Type: Marijuana Advance Directives: No Advance Directives Information Provided: Yes Do you have a plan to hurt others: No Plan service: No Sexual orientation: Straight/Heterosexual Meds Allergies Allergy/AdvReac Type Severity Reaction Status Date / Time droperidol [From INAPSINE] Allergy Severe MUSCLE Verified 11/28/23 09:42 CRAMPS Active Medications: Current Medications Lactated Ringer's (Lr) 1,000 mls @ 100 mls/hr IVCONT .Q10H MARIO Last Admin: 11/28/23 18:07 Dose: 100 mls/hr Home Medications ?Medication ?Instructions ?Recorded ?Confirmed ?Last Taken ?Type bupropion HCl 150 mg 24 hr tablet, 150 mg PO DAILY depressive disorder 11/28/23 11/28/23 11/27/23 History extended release guanfacine 1 mg tablet 1 - 2 mg PO DAILY PRN Panic 11/28/23 11/28/23 Unknown History Attack(S) hydroxyzine HCl 50 mg tablet 50 mg PO BEDTIME PRN insomnia 11/28/23 11/28/23 Unknown History omeprazole 20 mg capsule,delayed 20 mg PO DAILY@0630 PRN Acid Reflux 11/28/23 11/28/23 Unknown History release propranolol 60 mg capsule,24 60 mg PO DAILY panic attack 11/28/23 11/28/23 11/27/23 History hr,extended release sertraline 50 mg tablet 100 mg PO DAILY 11/28/23 11/28/23 11/27/23 History Physical Exam 2 Vital Signs and Narrative: Vital Signs: Last Vital Signs Temp 98.9 F 11/28/23 18:00 Pulse 74 11/28/23 18:00 Resp 16 11/28/23 18:00 BP 106/61 11/28/23 18:00 Pulse Ox 100 11/28/23 18:00 O2 Del Method Room Air 11/28/23 18:00 BMI result Body Mass Index 25.0 Middle-aged female lying in bed in no distress Neck supple, no JVD Regular rate and rhythm, S1-S2 heard Regular breath sounds bilaterally, no wheezing or crackles appreciated Abdomen soft nontender, no guarding, no rigidity Patient is awake, alert and oriented to self, place, time and person ; no focal motor deficit Psych: Normal mood No pedal edema Results Labs 11/28/23 12:00 11/28/23 12:00 Labs: Laboratory Results - last 24 hr 11/28/23 11/28/23 11/28/23 12:00 14:18 15:58 MCV 96.6 MCH 33.5 H MCHC 34.7 RDW 13.4 Plt Count 316 MPV 8.9 L Immature Gran % (Auto) 0.4 Neut % (Auto) 89.4 H Lymph % (Auto) 6.0 L [place] % (Auto) 3.8 Eos % (Auto) 0.0 Baso % (Auto) 0.4 Lymph # (Auto) 0.9 L [place] # (Auto) 0.6 Eos # (Auto) 0.0 Baso # (Auto) 0.1 Abs Immat Gran (auto) 0.06 H Absolute Neuts (auto) 13.1 H Absolute Nucleated RBC 0.000 Nucleated RBC % (auto) 0.0 Anion Gap 17 Estim Creat Clear Calc 71.4 Estimated GFR > 60 Random Glucose 145 H Lactic Acid 4.3 H* Lactic Acid F/U @ 2Hr 2.5 H* Lactic Acid F/U @ 4Hr Calcium 10.0 Magnesium 1.8 Total Bilirubin 0.7 Direct Bilirubin 0.2 AST 18 ALT 18 Alkaline Phosphatase 79 Total Protein 7.7 Albumin 4.6 Lipase 17 Urine Color Urine Appearance Urine pH Ur Specific [place] Urine Protein Urine Glucose (UA) Urine Ketones Urine Blood Urine Nitrite Ur Leukocyte Esterase Urine RBC Urine WBC Ur Squamous Epith Cells Urine Bacteria Hyaline Casts Urine Test NEGATIVE Urine Opiates Screen Ur Buprenorphine Scrn Ur Oxycodone Screen Urine Methadone Screen Urine Fentanyl Screen Ur Barbiturates Screen Ur Phencyclidine Scrn Ur Amphetamines Screen U Benzodiazepines Scrn Urine Cocaine Screen U Marijuana (THC) Screen Ethyl Alcohol < 10 Influenza Type A (PCR) NEGATIVE Influenza Type B (PCR) NEGATIVE RSV RNA Qual (PCR) NEGATIVE SARS-CoV-2 RNA (RT-PCR) NEGATIVE 11/28/23 11/28/23 11/28/23 15:59 17:16 17:49 MCV MCH MCHC RDW Plt Count MPV Immature Gran % (Auto) Neut % (Auto) Lymph % (Auto) [place] % (Auto) Eos % (Auto) Baso % (Auto) Lymph # (Auto) [place] # (Auto) Eos # (Auto) Baso # (Auto) Abs Immat Gran (auto) Absolute Neuts (auto) Absolute Nucleated RBC Nucleated RBC % (auto) Anion Gap Estim Creat Clear Calc Estimated GFR Random Glucose Lactic Acid 3.3 H* Lactic Acid F/U @ 2Hr Lactic Acid F/U @ 4Hr 3.5 H* Calcium Magnesium Total Bilirubin Direct Bilirubin AST ALT Alkaline Phosphatase Total Protein Albumin Lipase Urine Color Yellow Urine Appearance Clear Urine pH 8.0 Ur Specific [place] >= 1.030 H Urine Protein 30 (1+) H Urine Glucose (UA) Negative Urine Ketones 15 Urine Blood Negative Urine Nitrite Negative Ur Leukocyte Esterase Negative Urine RBC 0-2 Urine WBC 0-5 Ur Squamous Epith Cells 0-2 Urine Bacteria None Seen Hyaline Casts 0-2 Urine Test Urine Opiates Screen Not Detected Ur Buprenorphine Scrn Not Detected Ur Oxycodone Screen Not Detected Urine Methadone Screen Not Detected Urine Fentanyl Screen Not Detected Ur Barbiturates Screen Not Detected Ur Phencyclidine Scrn Not Detected Ur Amphetamines Screen Not Detected U Benzodiazepines Scrn Not Detected Urine Cocaine Screen Not Detected U Marijuana (THC) Screen POSITIVE H Ethyl Alcohol Influenza Type A (PCR) Influenza Type B (PCR) RSV RNA Qual (PCR) SARS-CoV-2 RNA (RT-PCR) Imaging Radiologist's Impressions: Impressions Abdomen/Pelvis CT 11/28/23 16:55 IMPRESSION: No acute intra-abdominal process seen. Diffuse colonic intramural fat, nonspecific findings but can be seen with previous inflammatory or infectious etiology. Fleischner guidelines were followed. Electronically signed by: Greg Steinberg MD 11/28/2023 07:39 PM EDT RP Assessment and Plan (1) Intractable nausea and vomiting: Status: Acute Plan This is a 53-year-old female with pertinent history of mood disorder, alcohol use disorder, gastroesophageal reflux disease who presents to the emergency department for evaluation of nausea and vomiting. #. Intractable nausea/vomiting: likely due to alcoholic gastritis. Full liquid diet and advance as tolerated. Symptomatic management. Ordered IV Protonix. Procalcitonin pending #. Lactic acidosis: due to alcoholism #. Reactive leukocytosis. Reactive. No sepsis #. Alcohol use disorder: Initiating thiamine, folic acid, mva. Monitor CIWA #. Mood disorder: Continue home mood stabilizers. Med rec pending DVT Prophylaxis: Lovenox Full code Quality Stroke Does the patient have a stroke diagnosis?: No VTE Prior VTE?: No VTE Risk Level:: Medical - moderate - high VTE Device Contraindication: Treatment Not Indicated VTE Drug Contraindication: N/A - Med Ordered
[2023-11-28 21:40] LABS: Procalcitonin 0.03 ng/mL
[2023-11-28] MEDS: Thiamine HCL 100 MG TABLET PO (21:40)
[2023-11-28] MEDS: Multivitamin TABLET 1 TAB PO (21:40)
[2023-11-28] MEDS: Folic Acid 1 MG TABLET PO (21:40)
[2023-11-28] MEDS: Enoxaparin Sodium 40 MG/0.4 ML SYRINGE SUBCUT (21:41)
[2023-11-29] VITALS (7 sets, daily range): BP systolic 100–177; BP diastolic 58–81; PULSE 57–77; RESP 14–20; TEMP 36.2–37.1; O2SAT 95–100
--- NOTE | 2023-11-29 02:17 | PC.NURSE ---
pt repositioned and pure wick in place.
--- NOTE | 2023-11-29 03:22 | PC.NURSE ---
pt sleeping at this time.
[2023-11-29] MEDS: Lactated Ringers 1,000 ML 100 ML IVCONT ×2 (04:24→14:54)
[2023-11-29 05:05] LABS: MANUAL DIFF FLAG NO
[2023-11-29 05:06] LABS: Basophils Percent Auto 0.3 % (0-2); Eosinophils Absolute Auto 0.1 X10*3/uL (0.0-0.4); Eosinophils Percent Auto 0.8 % (0-4); Hematocrit 30.9 % (37.0-47.0); Hemoglobin 10.7 g/dl (12.0-16.0); Imm Gran Abs Auto 0.04 X10*3/uL (0.00-0.03); Imm Gran Pct Auto 0.3 % (0.0-0.4); Lymphocytes Absolute Auto 1.7 X10*3/uL (1.2-4.9); Mean Corpuscular HGB Conc 34.6 g/dl (31.0-35.0); Mean Corpuscular Hemoglobin 33.8 pg (27.0-33.0); Mean Corpuscular Volume 97.5 fL (80.0-98.0); Mean Platelet Volume 9.1 fL (9.4-12.3); Monocytes Absolute Auto 0.7 X10*3/uL (0.1-1.2); Monocytes Percent Auto 5.7 % (2-11); Neutrophils Percent Auto 77.9 % (45-73); Platelet Count 235 X10*3/uL (160-400); Red Blood Count 3.17 X10*6/uL (4.20-5.50); Red Cell Distribution Width 13.9 % (11.0-16.0); White Blood Count 11.5 X10*3/uL (4.8-10.8)
[2023-11-29 05:25] LABS: Anion Gap 11 (12-20); Blood Urea Nitrogen 11 mg/dL (9-16); Calcium 8.3 mg/dL (8.4-10.2); Carbon Dioxide 25 mmol/L (22-29); Chloride 112 mmol/L (96-108); Creatinine Clr Calc Pharmacy 75.1; Estimated Glomerular Filt Rate > 60; Glucose Random 98 mg/dL (60-115); Potassium 3.2 mmol/L (3.3-5.1); Sodium 145 mmol/L (135-145)
[2023-11-29] MEDS: Multivitamin TABLET 1 TAB PO (07:31)
[2023-11-29] MEDS: Thiamine HCL 100 MG TABLET PO (07:31)
[2023-11-29] MEDS: Folic Acid 1 MG TABLET PO (07:31)
[2023-11-29] MEDS: 0.9 % Sodium Chloride Flush 3 ML SYRINGE IVFLUSH (07:33)
[2023-11-29 08:37] LABS: Magnesium 1.8 mg/dL (1.6-2.6)
[2023-11-29] MEDS: Sertraline HCL 100 MG TABLET PO (09:23)
[2023-11-29] MEDS: buPROPion HCl XL 150 MG TAB.ER.24H PO (09:23)
[2023-11-29] MEDS: Potassium Chloride Packet 20 MEQ PACKET 40 MEQ PO (09:23)
--- NOTE | 2023-11-29 11:30 | MHC.CM.PN ---
Addendum entered by Rina Carrillo 11/29/23 11:48: PER MD ROUNDS, PT WILL LIKELY BE READY TO DC TOMORROW Original Note: PT REPORTS SHE LIVES WITH HER S/O AND KIDS SHE IS INDEPENDENT WITH CARE AND HAS NO DME/SERVICES PT DOES NOT HAVE A PCP SHE SAYS SHE NOW HAS [facility] PT DECLINES TO COMPLETE A HCP OBSERVATION NOTICE DELIVERED DCP: HOME NO SERVICES VIA PRIVATE TRANSPORT
[2023-11-29] MEDS: ondansetron HCL 4 MG/2 ML VIAL IVPUSH ×2 (13:40→19:47)
--- NOTE | 2023-11-29 14:14 | HO.PM.IMPN ---
Subjective Subjective Date of Service: 11/29/23 Interval History: Seen and examined this morning Follow-up for nausea, vomiting, diarrhea Abdominal pain and nausea improving No evidence of alcohol withdrawal Review of Systems Review of Systems: Yes all other systems are reviewed and are negative Constitutional Constitutional: Denies chills and Denies fever(s) Cardiovascular Cardiovascular: Denies chest pain, Denies palpitations and Denies dyspnea Respiratory Respiratory: Denies cough and Denies dyspnea Endocrine Endocrine: Denies palpitations Physical Exam Vital Signs: Vital Signs: Last Vital Signs Temp 97.8 F 11/29/23 12:48 Pulse 60 11/29/23 12:48 Resp 18 11/29/23 12:48 BP 145/66 H 11/29/23 12:48 Pulse Ox 99 11/29/23 12:48 O2 Del Method Room Air 11/29/23 12:48 BMI result Body Mass Index 25.0 Const: General: alert and awake Nutritional Appearance: average body habitus Orientation/consciousness: patient oriented x3 Resp: Effort & Inspection: normal respiratory effort, able to speak in complete sentences, no respiratory distress and no use of accessory muscles Cardio: Rate: regular rate GI: Inspection: No distended Palpation (GI): Soft to palpation Neuro: General: patient oriented x3, moves all extremities and CN's II-XI intact bilaterally Extrem: General: Yes no pedal edema Objective Data Active Medications Acetaminophen (Acetaminophen 325 Mg Tablet) 650 mg PO Q6H PRN PRN Reason: Pain, Mild (Pain Scale 1-3), fever or headache Bupropion HCl (Bupropion Hcl Xl 150 Mg Tab.Er.24h) 150 mg PO DAILY [facility] Last Admin: 11/29/23 09:23 Dose: 150 mg Documented By: LORE Calcium Carbonate (Calcium Carbonate 750 Mg Tab.Chew) 750 mg PO Q4H PRN PRN Reason: Heartburn Enoxaparin Sodium (Enoxaparin Sodium 40 Mg/0.4 Ml Syringe) 40 mg SUBCUT Q24H [facility] Last Admin: 11/28/23 21:41 Dose: 40 mg Documented By: SISSY Famotidine (Famotidine/Pf 20 Mg/2 Ml Vial) 20 mg IVPUSH DAILY [facility] Folic Acid (Folic Acid 1 Mg Tablet) 1 mg PO DAILY [facility] Last Admin: 11/29/23 07:31 Dose: 1 mg Documented By: MILIND Lactated Ringer's (Lr) 1,000 mls @ 100 mls/hr IVCONT .Q10H [facility] Last Admin: 11/29/23 04:24 Dose: 100 mls/hr Documented By: JOSE LUIS Magnesium Hydroxide (Milk Of Magnesia 30 Ml Oral.Susp) 30 ml PO DAILY PRN PRN Reason: Constipation Melatonin (Melatonin 3 Mg Tablet) 6 mg PO BEDTIME PRN PRN Reason: Insomnia Metoclopramide HCl (Metoclopramide Hcl 10 Mg/2 Ml Vial) 5 mg IVPUSH ONCE ONE Stop: 11/29/23 14:12 Multivitamins/Vitamin C (Multivitamin Tablet) 1 tab PO DAILY [facility] Last Admin: 11/29/23 07:31 Dose: 1 tab Documented By: MILIND Ondansetron HCl (Ondansetron Hcl 4 Mg/2 Ml Vial) 4 mg IVPUSH Q8H PRN PRN Reason: Nausea and Vomiting Last Admin: 11/29/23 13:40 Dose: 4 mg Documented By: WILLIAM Potassium Chloride (Potassium Chloride Packet 20 Meq Packet) 40 meq PO BID [facility] Stop: 11/29/23 21:01 Last Admin: 11/29/23 09:23 Dose: 40 meq Documented By: LORE Sertraline HCl (Sertraline Hcl 100 Mg Tablet) 100 mg PO DAILY [facility] Last Admin: 11/29/23 09:23 Dose: 100 mg Documented By: LORE Sodium Chloride (0.9 % Sodium Chloride Flush 3 Ml Syringe) 3 ml IVFLUSH QSHIFT [facility] Last Admin: 11/29/23 07:33 Dose: 3 ml Documented By: MILIND Comments: right ac flushing Left AC LR running Thiamine HCl (Thiamine Hcl 100 Mg Tablet) 100 mg PO DAILY [facility] Last Admin: 11/29/23 07:31 Dose: 100 mg Documented By: MILIND Labs 11/29/23 04:19 11/29/23 04:19 Labs: Laboratory Results - last 24 hr 11/28/23 11/28/23 11/28/23 14:18 15:58 15:59 MCV MCH MCHC RDW Plt Count MPV Immature Gran % (Auto) Neut % (Auto) Lymph % (Auto) [place] % (Auto) Eos % (Auto) Baso % (Auto) Lymph # (Auto) [place] # (Auto) Eos # (Auto) Baso # (Auto) Abs Immat Gran (auto) Absolute Neuts (auto) Absolute Nucleated RBC Nucleated RBC % (auto) Anion Gap Estim Creat Clear Calc Estimated GFR Random Glucose Lactic Acid Lactic Acid F/U @ 2Hr 2.5 H* Lactic Acid F/U @ 4Hr Calcium Magnesium Procalcitonin Urine Color Yellow Urine Appearance Clear Urine pH 8.0 Ur Specific [place] >= 1.030 H Urine Protein 30 (1+) H Urine Glucose (UA) Negative Urine Ketones 15 Urine Blood Negative Urine Nitrite Negative Ur Leukocyte Esterase Negative Urine RBC 0-2 Urine WBC 0-5 Ur Squamous Epith Cells 0-2 Urine Bacteria None Seen Hyaline Casts 0-2 Urine Test NEGATIVE Urine Opiates Screen Not Detected Ur Buprenorphine Scrn Not Detected Ur Oxycodone Screen Not Detected Urine Methadone Screen Not Detected Urine Fentanyl Screen Not Detected Ur Barbiturates Screen Not Detected Ur Phencyclidine Scrn Not Detected Ur Amphetamines Screen Not Detected U Benzodiazepines Scrn Not Detected Urine Cocaine Screen Not Detected U Marijuana (THC) Screen POSITIVE H 11/28/23 11/28/23 11/28/23 17:16 17:49 Unknown MCV MCH MCHC RDW Plt Count MPV Immature Gran % (Auto) Neut % (Auto) Lymph % (Auto) [place] % (Auto) Eos % (Auto) Baso % (Auto) Lymph # (Auto) [place] # (Auto) Eos # (Auto) Baso # (Auto) Abs Immat Gran (auto) Absolute Neuts (auto) Absolute Nucleated RBC Nucleated RBC % (auto) Anion Gap Estim Creat Clear Calc Estimated GFR Random Glucose Lactic Acid 3.3 H* Lactic Acid F/U @ 2Hr 2.0 Lactic Acid F/U @ 4Hr 3.5 H* Calcium Magnesium Procalcitonin 0.03 Urine Color Urine Appearance Urine pH Ur Specific [place] Urine Protein Urine Glucose (UA) Urine Ketones Urine Blood Urine Nitrite Ur Leukocyte Esterase Urine RBC Urine WBC Ur Squamous Epith Cells Urine Bacteria Hyaline Casts Urine Test Urine Opiates Screen Ur Buprenorphine Scrn Ur Oxycodone Screen Urine Methadone Screen Urine Fentanyl Screen Ur Barbiturates Screen Ur Phencyclidine Scrn Ur Amphetamines Screen U Benzodiazepines Scrn Urine Cocaine Screen U Marijuana (THC) Screen 11/29/23 04:19 MCV 97.5 MCH 33.8 H MCHC 34.6 RDW 13.9 Plt Count 235 D MPV 9.1 L Immature Gran % (Auto) 0.3 Neut % (Auto) 77.9 H Lymph % (Auto) 15.0 L [place] % (Auto) 5.7 Eos % (Auto) 0.8 Baso % (Auto) 0.3 Lymph # (Auto) 1.7 [place] # (Auto) 0.7 Eos # (Auto) 0.1 Baso # (Auto) 0.0 Abs Immat Gran (auto) 0.04 H Absolute Neuts (auto) 9.0 H Absolute Nucleated RBC 0.000 Nucleated RBC % (auto) 0.0 Anion Gap 11 L Estim Creat Clear Calc 75.1 Estimated GFR > 60 Random Glucose 98 Lactic Acid Lactic Acid F/U @ 2Hr Lactic Acid F/U @ 4Hr Calcium 8.3 L D Magnesium 1.8 Procalcitonin Urine Color Urine Appearance Urine pH Ur Specific [place] Urine Protein Urine Glucose (UA) Urine Ketones Urine Blood Urine Nitrite Ur Leukocyte Esterase Urine RBC Urine WBC Ur Squamous Epith Cells Urine Bacteria Hyaline Casts Urine Test Urine Opiates Screen Ur Buprenorphine Scrn Ur Oxycodone Screen Urine Methadone Screen Urine Fentanyl Screen Ur Barbiturates Screen Ur Phencyclidine Scrn Ur Amphetamines Screen U Benzodiazepines Scrn Urine Cocaine Screen U Marijuana (THC) Screen Assessment and Plan (1) Nausea, vomiting, and diarrhea: Status: Acute Plan This is a 53-year-old female with pertinent history of mood disorder, alcohol use disorder, gastroesophageal reflux disease who presents to the emergency department for evaluation of nausea and vomiting. Intractable nausea/vomiting: likely due to alcoholic gastritis vs viral gastroenteritis vs hyperemesis syndrome (tox screen + for marijuana) Abdominal pain improved but still with nausea and vomiting Full liquid diet and advance as tolerated. Symptomatic management, IVF, antiemetics diarrhea stool studies pending Acute hypokalemia Likely due to GI losses We will replace orally Check magnesium Follow BMP Acute Lactic acidosis: due to volume depletion, no evidence of sepsis Reactive leukocytosis. Reactive ?due to vomiting. No sepsis Alcohol use disorder: Has not been drinking daily thiamine, folic acid, mva. Monitor [place] Patient medicine consult pending Mood disorder: Continue home mood stabilizers. DVT Prophylaxis: Lovenox Full code Patient requires ongoing inpatient stay for management persistent nausea/vomiting, inability to take p.o. and electrolyte supplementation Quality Stroke Does the patient have a stroke diagnosis?: No VTE Prior VTE?: No VTE Risk Level:: Medical - moderate - high VTE Device Contraindication: Treatment Not Indicated VTE Drug Contraindication: N/A - Med Ordered
[2023-11-29] MEDS: Metoclopramide HCl 10 MG/2 ML VIAL 5 MG IVPUSH ×2 (14:20→18:36)
[2023-11-29] MEDS: Famotidine/PF 20 MG/2 ML VIAL IVPUSH (14:20)
[2023-11-29] MEDS: Magnesium Sulfate/H2O 2 GM/50 ML PIGGYBACK IV (14:54)
[2023-11-29] MEDS: LORazepam 2 MG/ML VIAL 0.5 MG IVPUSH (17:56)
[2023-11-29] MEDS: Enoxaparin Sodium 40 MG/0.4 ML SYRINGE SUBCUT (19:47)
--- NOTE | 2023-11-29 20:41 | PC.NURSE ---
Addendum entered by Belem Martin RN 11/29/23 21:30: Order for 5mg compazine, given per APR Original Note: Pt medicated with zofran per APR. Upon reassessment pt still nauseous and dry heaving. Dr. Araya made aware. No new orders at this time.
[2023-11-29] MEDS: Prochlorperazine Edisylate 10 MG/2 ML VIAL 5 MG IVPUSH (21:19)
[2023-11-30] MEDS: ondansetron HCL 4 MG/2 ML VIAL IVPUSH (00:32)
[2023-11-30] MEDS: Lactated Ringers 1,000 ML 100 ML IVCONT ×2 (00:32→09:22)
[2023-11-30] MEDS: Metoclopramide HCl 10 MG/2 ML VIAL IVPUSH (02:58)
[2023-11-30 03:09] VITALS: BP 164/85; PULSE 60; RESP 16; TEMP 36.4; O2SAT 100
[2023-11-30] MEDS: LORazepam 2 MG/ML VIAL 1 MG IVPUSH (03:46)
[2023-11-30] MEDS: PHENobarbitaL sodium 130 MG/ML VIAL IM (03:46)
--- NOTE | 2023-11-30 03:53 | PC.NURSE ---
pt ciwa 11. Dr. Araya made aware 1mg ativan and 1 dose phenobarb given per MAR.
[2023-11-30 06:48] LABS: Anion Gap 13 (12-20); Blood Urea Nitrogen 4 mg/dL (9-16); Carbon Dioxide 27 mmol/L (22-29); Chloride 101 mmol/L (96-108); Creatinine Clr Calc Pharmacy 82.6; Estimated Glomerular Filt Rate > 60; Glucose Random 109 mg/dL (60-115); Potassium 3.1 mmol/L (3.3-5.1); Sodium 138 mmol/L (135-145)
[2023-11-30 07:11] VITALS: BP 145/70; PULSE 61; RESP 16; TEMP 37.1; O2SAT 98
[2023-11-30 07:33] LABS: Hematocrit 34.1 % (37.0-47.0); Hemoglobin 12.1 g/dl (12.0-16.0); Mean Corpuscular HGB Conc 35.5 g/dl (31.0-35.0); Mean Corpuscular Hemoglobin 33.4 pg (27.0-33.0); Mean Corpuscular Volume 94.2 fL (80.0-98.0); Mean Platelet Volume 9.2 fL (9.4-12.3); Platelet Count 268 X10*3/uL (160-400); Red Blood Count 3.62 X10*6/uL (4.20-5.50); Red Cell Distribution Width 13.2 % (11.0-16.0); White Blood Count 10.5 X10*3/uL (4.8-10.8)
[2023-11-30] MEDS: Famotidine/PF 20 MG/2 ML VIAL IVPUSH (08:17)
[2023-11-30] MEDS: Potassium Chloride Packet 20 MEQ PACKET 40 MEQ PO ×2 (08:17→20:12)
[2023-11-30 11:39] VITALS: BP 111/58; PULSE 66; RESP 14; TEMP 36.9; O2SAT 98
--- NOTE | 2023-11-30 11:43 | MHC.RECOVRN ---
Met with pt in 353 after Addiction Medicine consult for AUD. Pt had presented to the ED with n/v/d, denies sick contacts, denies fever or chills. Upon evaluation, pt admitted for intractable nausea and vomiting. Pt laying in bed, asleep, wakes to voice, engages in conversation. Pt reports she had been in recovery since February, had a short recurrence in April and a recurrence this past weekend. Pt reports she was not drinking every day prior to admission, however, was drinking 4 nips vodka on the days she was drinking. Pt attributed her recovery time to being around people. Pt reports she lives with her boyfriend and 27 year old son who are both concerned regarding her alcohol use but also supportive. Pt reports her boyfriend drinks socially. Discussed recovery resources and supports, pt is interested in naltrexone and following up with the [facility]. Pt provided with written recovery information as well as t/w contact information if needed. Discussed with Rody Arreola APRN. [facility] appt made for 12/10/23 at 3PM. CM aware.
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
[2023-11-30] MEDS: Naltrexone HCl 50 MG TABLET 25 MG PO (13:13)
[2023-11-30] MEDS: LORazepam 2 MG/ML VIAL 0.5 MG IVPUSH ×3 (14:09→22:57)
[2023-11-30 15:31] VITALS: BP 179/84; PULSE 66; RESP 16; TEMP 36.8; O2SAT 98
[2023-11-30 18:24] VITALS: BP 133/63
[2023-11-30 20:00] VITALS: BP 177/86; PULSE 57; RESP 16; TEMP 37.1; O2SAT 98
[2023-11-30] MEDS: Enoxaparin Sodium 40 MG/0.4 ML SYRINGE SUBCUT (20:12)
[2023-11-30] MEDS: 0.9 % Sodium Chloride Flush 3 ML SYRINGE IVFLUSH (21:34)
[2023-12-01] VITALS (7 sets, daily range): BP systolic 115–156; BP diastolic 55–91; PULSE 57–76; RESP 16–18; TEMP 35.9–37.1; O2SAT 96–98
[2023-12-01] MEDS: ondansetron HCL 4 MG/2 ML VIAL IVPUSH (08:02)
[2023-12-01] MEDS: Famotidine/PF 20 MG/2 ML VIAL IVPUSH (09:11)
[2023-12-01] MEDS: Sertraline HCL 100 MG TABLET PO (09:12)
[2023-12-01] MEDS: Multivitamin TABLET 1 TAB PO (09:12)
[2023-12-01] MEDS: Naltrexone HCl 50 MG TABLET 25 MG PO (09:12)
[2023-12-01] MEDS: Thiamine HCL 100 MG TABLET PO (09:12)
[2023-12-01] MEDS: Folic Acid 1 MG TABLET PO (09:12)
[2023-12-01] MEDS: buPROPion HCl XL 150 MG TAB.ER.24H PO (09:12)
[2023-12-01] MEDS: 0.9 % Sodium Chloride Flush 3 ML SYRINGE IVFLUSH ×3 (09:14→20:03)
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
[2023-12-01 09:18] LABS: Anion Gap 13 (12-20); Blood Urea Nitrogen 7 mg/dL (9-16); Calcium 9.4 mg/dL (8.4-10.2); Carbon Dioxide 29 mmol/L (22-29); Chloride 99 mmol/L (96-108); Creatinine Clr Calc Pharmacy 81.4; Estimated Glomerular Filt Rate > 60; Glucose Random 98 mg/dL (60-115); Magnesium 1.9 mg/dL (1.6-2.6); Potassium 2.8 mmol/L (3.3-5.1); Sodium 138 mmol/L (135-145)
[2023-12-01] MEDS: Potassium Chloride ER 20 MEQ TAB.ER.PRT 40 MEQ PO (09:20)
[2023-12-01] MEDS: Potassium Chloride/H20 10 MEQ/100 ML PIGGYBACK 100 MEQ IV ×2 (09:24→10:26)
[2023-12-01] MEDS: Enoxaparin Sodium 40 MG/0.4 ML SYRINGE SUBCUT (20:03)
[2023-12-01] MEDS: Melatonin 3 MG TABLET 6 MG PO (21:56)
[2023-12-02 03:39] VITALS: BP 118/56; PULSE 54; RESP 18; TEMP 36.3; O2SAT 99
[2023-12-02 07:49] VITALS: BP 120/60; PULSE 68; RESP 14; TEMP 36.4; O2SAT 96
[2023-12-02] MEDS: Famotidine/PF 20 MG/2 ML VIAL IVPUSH (08:40)
[2023-12-02] MEDS: Thiamine HCL 100 MG TABLET PO (08:41)
[2023-12-02] MEDS: Multivitamin TABLET 1 TAB PO (08:41)
[2023-12-02] MEDS: Sertraline HCL 100 MG TABLET PO (08:41)
[2023-12-02] MEDS: buPROPion HCl XL 150 MG TAB.ER.24H PO (08:41)
[2023-12-02] MEDS: Folic Acid 1 MG TABLET PO (08:41)
[2023-12-02] MEDS: Naltrexone HCl 50 MG TABLET 25 MG PO (08:41)
[2023-12-02] MEDS: 0.9 % Sodium Chloride Flush 3 ML SYRINGE IVFLUSH (08:45)
[2023-12-02 09:27] LABS: Potassium 3.2 mmol/L (3.3-5.1)
--- NOTE | 2023-12-02 09:51 | P.DS_ITS ---
DS: Providers Provider Date of Service: 12/02/23 Date of admission: 11/30/23 08:53 Primary care physician: None Physician Consults: 11/29/23 09:56 Addiction Medicine Routine Consulting Provider: Addiction Covering Reason for consultation: period of sobriety now with binging etoh Has provider been notified: No DS: Diagnosis Discharge Diagnosis (1) Intractable nausea and vomiting: Status: Resolved DS: Summary Hospital Course Hospital Course: History and physical as per admitting provider. This is a 53-year-old female with pertinent history of mood disorder, alcohol use disorder, gastroesophageal reflux disease who presents to the emergency department for evaluation of nausea and vomiting. Patient states her symptoms started on the day of presentation. He has been having multiple episodes of nausea and nonbloody emesis. Patient states she was throwing up every 5 minutes. Also has been having upper abdominal discomfort. Unable to tolerate p.o. intake. Had 1 episode of loose stool. Also complains of flatulence. Her last alcoholic drink was 2 days ago. Does have a history of alcohol use disorder with alcohol withdrawals in the past. No concern for alcohol withdrawal as per patient during this time. No history of alcohol withdrawal seizures. No fever, chills, chest pain, palpitations, shortness of breath, changes in urinary habits. In the emergency department, WBC 14.6, lactic acid 3.5 and patient with multiple episodes of vomiting. 53-year-old woman treated for intractable nausea and vomiting likely secondary to alcoholic gastritis and viral gastroenteritis with hyperemesis syndrome. Toxicology screen was positive for marijuana. Patient was treated with IV fluids, antiemetics, symptomatic management. Diet was advanced to regular and she has been tolerating solid foods. She was noted to have acute hypokalemia likely secondary to GI losses. She should continue with 3 more days of oral potassium. She was also noted to have acute lactic acidosis which was likely secondary to volume depletion. Reactive leukocytosis was likely secondary to vomiting and no sepsis. She was have a history of alcohol use disorder and reports that she has not been drinking daily. She does have a history of alcohol withdrawal symptoms but during this hospitalization she did not seem to have any withdrawals although she was given a dose of phenobarbital. She has be en advanced to stop drinking alcohol. She should continue her mood stabilizers home. Plan is to discharge patient and she should follow up with the primary care provider. Time Attestation Discharge Coordination Time (in mins): 39 Quality: Safe Use of Opioids Does Pt have an Active Cancer Diagnosis on the Problem List?: No Quality: Stroke Does the patient have a stroke diagnosis?: No Physical Exam Vital Signs: Vital Signs: Last Vital Signs Temp 97.5 F 12/02/23 07:49 Pulse 68 12/02/23 07:49 Resp 14 12/02/23 07:49 BP 120/60 12/02/23 07:49 Pulse Ox 96 12/02/23 07:49 O2 Del Method Room Air 12/02/23 07:49 BMI result Body Mass Index 25.0 Appearing in no acute distress head is normocephalic atraumatic eyes pupils are PERRLA sclera is anicteric mouth throat mucous membranes are intact and moist neck is supple no lymphadenopathy, no JVD noted lung sounds are clear to auscultation heart regular rate rhythm, clear S1, S2 positive bowel sounds, abdomen is soft, nontender neuro patient is alert x3, no focal deficits DS: Data Data Completed and Pending Completed studies during hospitalization [Text1]: Procedures Detoxification Services for Substance Abuse Treatment (03/01/23) Labs on day of discharge: Laboratory Results - last 24 hr 12/02/23 07:32 Hold Purple Top SEE NOTE Potassium 3.2 L Preliminary micro results at discharge 11/28/23 14:18 Blood Culture - Preliminary Blood - Venous No growth after 48 hours. 11/28/23 13:16 Blood Culture - Preliminary Blood - Venous No growth after 48 hours. Discharge Plan Discharge Anticipated Discharge Date/Time: 12/02/23 07:22 Patient Disposition: Home, Self-Care Discharge Diagnosis: Intractable nausea and vomiting Alcohol gastritis Hypokalemia Acute lactic acidosis Reactive leukocytosis Referrals: Rody Arreola CNP [Nurse Practitioner] - 12/10/23 3:00 pm ([facility] [address] Appt: 12/10/23 at 3PM) Discharge Medications: New potassium chloride 20 mEq tablet extended release 20 meq PO DAILY Qty: 3 0RF Continued propranolol 60 mg capsule,extended release 24 hr 60 mg PO DAILY hydroxyzine HCl 50 mg tablet 50 mg PO BEDTIME PRN (Reason: insomnia) guanfacine 1 mg tablet 1 - 2 mg PO DAILY PRN (Reason: Panic Attack(S)) bupropion HCl 150 mg tablet extended release 24 hr 150 mg PO DAILY omeprazole 20 mg capsule,delayed release(DR/EC) 20 mg PO DAILY@0630 PRN (Reason: Acid Reflux) sertraline 50 mg tablet 100 mg PO DAILY Discharge Orders: Discharge Order (Routine); Ordered 12/02/23 Ordered By: Keisha Mccormack Diet: Advance to usual diet Activity on Discharge: As tolerated Stand Alone Forms: Patient Portal Discharge page Print Language: Nepali Care Plan Goals: Avoid alcoholic beverages Start with eating bland foods for few days Health Concerns: Intractable nausea and vomiting Alcohol gastritis Hypokalemia Acute lactic acidosis Reactive leukocytosis Plan of Treatment: Follow-up with primary care provider as needed Take all medications as prescribed Assessment: See discharge summary Discharge Date/Time: 12/02/23 10:34
[2023-12-02] MEDS: Potassium Chloride ER 20 MEQ TAB.ER.PRT 40 MEQ PO (09:54)
--- NOTE | 2023-12-02 10:09 | MHC.CM.PN ---
PT WILL DC HOME TODAY WITH A PLAN TO FOLLOW UP WITH [facility] ON 12/10/23 PT WILL SELF ARRANGE TRANSPORT
== END 2023-12-02 10:34 | disposition home or self-care (01) | DRG 241 ==
LOC: HO.ED 20:17 → HO.EDOVER 20:50 → HO.S3 11-29 07:29
PROVIDERS: Physician Assistant; Physician Assistant Medical; Admitting Provider Student in an Organized Health Care Education/Training Program; Emergency Provider Emergency Medicine; Visit Provider Nurse Practitioner Acute Care
DX: K29.20 Alcoholic gastritis without bleeding (principal); E87.21 Acute metabolic acidosis; A08.4 Viral intestinal infection, unspecified; E87.6 Hypokalemia; F10.20 Alcohol dependence, uncomplicated; F39 Unspecified mood [affective] disorder; R11.2 Nausea with vomiting, unspecified; F12.90 Cannabis use, unspecified, uncomplicated; Z20.822 Contact with and (suspected) exposure to COVID-19; Z79.899 Other long term (current) drug therapy
CPT/HCPCS: 0241U; 36415; 74177; 80048; 80076; 80307; 81001; 81025; 83605; 83690; 83735; 84132; 84145; 85025; 85027; 87040; 96361; 96365; 96375; 99285; J0737; J1650; J2060; J2405; J2470; J2543; J2560; J2765; J3475; J3480; J7120; Q9967

== ENCOUNTER → 2023-11-28 20:45 | Outpatient (BNV) | payer OTHER, SELFPAY | PROVIDERS: Admitting Provider Student in an Organized Health Care Education/Training Program; Emergency Provider Emergency Medicine; Visit Provider Student in an Organized Health Care Education/Training Program | DX: R11.2 Nausea with vomiting, unspecified (principal); K29.20 Alcoholic gastritis without bleeding; E87.6 Hypokalemia; E87.29 Other acidosis | CPT/HCPCS: 99222; 99232; 99239 ==

== ENCOUNTER 2024-01-23 14:17 | Outpatient (AMB) | payer OTHER, SELFPAY ==
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
== END 2024-01-23 15:34 | disposition home or self-care (01) ==
PROVIDERS: Visit Provider Nurse Practitioner Psychiatric/Mental Health
DX: F10.90 Alcohol use, unspecified, uncomplicated (principal)
CPT/HCPCS: 99204

== ENCOUNTER → 2024-01-23 14:17 | Outpatient (BNVA) | payer OTHER, SELFPAY | PROVIDERS: Visit Provider Nurse Practitioner Psychiatric/Mental Health | DX: F10.20 Alcohol dependence, uncomplicated (principal) | CPT/HCPCS: 99202 ==

== ENCOUNTER 2024-01-29 15:33 | Outpatient (AMB) | payer OTHER, SELFPAY ==
[2024-01-29 15:50] VITALS: BP 120/72; PULSE 58; TEMP 36.8; O2SAT 97
--- NOTE | 2024-01-29 15:50 | AM.OFFWIN_ITS ---
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 Patient Tobacco Use Status: Never used Tobacco Allergies droperidol [From INAPSINE] Allergy (Severe, Verified 01/29/24 15:51) MUSCLE CRAMPS Do you need a note to return to daycare/school/sports/work: Yes HPI HPI Comments History of Present Illness Details This is a 53-year-old female with a past medical history of anxiety presenting for evaluation of a sore throat, hoarseness and cough that has been present, waxing and waning, over the past 2 weeks. Patient denies having any fevers, chills, ear pain, difficulty swallowing, chest pain, hemoptysis or back pain. Patient has been using NyQuil and Mucinex without relief of her symptoms. Patient states her grandchildren were sick last week with a ?walking pneumonia?. [facility] Medical History Alcohol use disorder Depression Social History Household Members: Significant Other and Children Housing: House Do you presently have visiting nurse or other home services: No Unable to assess alcohol history related to: Unknown Alcohol intake: current Patient Tobacco Use Status: Never used Tobacco Tobacco use type: Cigarette Cigarette Packs Per Day: 0.1 Cigarettes Per Day: 2.0 Second Hand Smoke Exposure: No Substance Use Type: Marijuana service: No Sexual orientation: Straight/Heterosexual Review of Systems Const All systems reviewed & are unremarkable except as noted in HPI and below Denies chills, Denies fever(s), Reports malaise and Denies weakness Eyes Reports no additional complaints ENT Reports no additional complaints, Denies otalgia, Denies facial pain, Denies sinus pressure, Reports sore throat, Denies throat swelling and Denies tongue swelling Card Reports no additional complaints and Denies dyspnea Resp Reports cough, Denies dyspnea, Denies stridor and Denies wheezing GI Reports no additional complaints Musc Reports no additional complaints Skin/Breast Reports system reviewed and no additional complaints, except as documented Neuro Reports no additional complaints and Denies weakness Psych Reports no additional complaints Endo Reports no additional complaints Siddharth/Lymph Reports no additional complaints Aller/Immun Reports no additional complaints, Denies throat swelling, Denies tongue swelling and Denies wheezing Physical Exam Vital Signs: Last Vital Signs Temp 98.2 F 01/29/24 15:50 Pulse 58 01/29/24 15:50 BP 120/72 01/29/24 15:50 Pulse Ox 97 01/29/24 15:50 Oxygen Delivery Method Room Air 01/29/24 15:50 Patient is afebrile, oxygenation 97% on room air. Const General: cooperative, healthy appearing, comfortable, no acute distress, well developed, alert, awake and Physically active; No lethargic Nutritional Appearance: average body habitus Orientation/consciousness: patient oriented x3 and No lethargic Limitations: no limitations HEENT Head: Yes normal to inspection and Yes normocephalic Ears: hearing grossly normal bilaterally, external ears normal, TM's normal bilaterally and EAC's normal General nose exam: Normal external nose present Face and sinus: Yes normal facial exam Mouth: Normal oral and palatal mucosa present and moist mucous membranes Throat: Yes posterior oropharynx normal Eyes General: appearance normal, both eyes and all related structures Neck Lymphatic: no lymphadenopathy noted Resp Effort & Inspection: normal respiratory effort, able to speak in complete sentences, no audible wheezes, no cough, not labored, no nasal flaring and no re spiratory distress Auscultation: clear to auscultation bilaterally Cardio Rate: regular rate Rhythm: regular rhythm Neuro General: patient oriented x3 Psych Appearance: grossly normal Mental Status: mental status grossly normal Insight: Good insight present (Psych) Judgement: Good judgement present (Psych) Results AMB Rapid Strep AMB Rapid Strep Negative Last Edit by MUKUND Torres on 01/29/24 16:05 Results Reviewed Results Reviewed: Rapid strep negative Assessment & Plan Assessment & Plan (1) Acute upper respiratory infection: Comment: Patient's rapid strep test is negative. Patient is afebrile and there is no tachypnea, hypoxia or tachycardia. Code(s): J06.9 - Acute upper respiratory infection, unspecified Plan: Patient is declining testing for COVID-19, influenza and RSV. Chest x-ray is not warranted at this time. Patient will be discharged home and instructed to continue using Mucinex, Tylenol or ibuprofen as needed. Coding Level of Care Code Est Pt Level 3 (14973) Diagnoses Acute upper respiratory infection J06.9 Time Spent (min) 20
== END 2024-01-29 16:15 | disposition home or self-care (01) ==
PROVIDERS: Visit Provider Physician Assistant
DX: Z13.9 Encounter for screening, unspecified (principal); J06.9 Acute upper respiratory infection, unspecified

== ENCOUNTER → 2024-01-29 15:33 | Outpatient (BNVA) | payer MEDICAID, SELFPAY | PROVIDERS: Visit Provider Physician Assistant | DX: J06.9 Acute upper respiratory infection, unspecified (principal) | CPT/HCPCS: 87880; 99212 ==

== ENCOUNTER 2024-07-22 13:26 | Outpatient (AMB) | payer OTHER, SELFPAY ==
--- NOTE | 2024-07-22 13:28 | MHC.OFFWIV ---
Intake Vital Signs 07/22/24 13:30 Weight 113 lb BP 118/76 Blood Pressure Location Rt brachial Position Sitting Pulse 61 Pulse Source Pulse Oximeter Temp 98.4 F Temp Source Oral Pulse Oximetry (%) 93 Oxygen Delivery Method Room Air Intake Visit Reasons: EP-lost of weight, vomiting Intake Note: Patient here for weightloss, vomiting, fatigue, unable to work because she isnt able to stand long, not urinating as frequent as she was before. Patient Tobacco Use Status: Never used Tobacco Allergies droperidol [From INAPSINE] Allergy (Severe, Verified 07/22/24 13:31) MUSCLE CRAMPS Do you need a note to return to daycare/school/sports/work: No HPI HPI Comments History of Present Illness Details History of Present Illness The patient is a 53-year-old female presenting with significant unintentional weight loss and associated issues of nausea and vomiting from several months. She states that she looked at herself in the mirror and saw how much weight she had lost. The patient has a history of gastrointestinal issues. She states that she has been having decreased appetite and issues with eating. She states that she eats what she can get down. She states that she has been drinking Ensure and minimal solid nutrition. She has two Ensure a day. She states that she has been having a granola bar if she can keep it down. She has been having episodes of vomiting and at times she has had to leave work due to her vomiting. She has been feeling weak, at times she has lightheadedness and dizziness. She denies diarrhea or rectal bleeding. She denies hematemesis. Associated symptoms include intermittent vomiting, particularly pronounced after consuming various foods such as lactose. She states that she does not have GERD. She states that she has just been having issues that she was to have an endoscopy done but she did not go. She states that she has had significant hair loss and has been sweating. She does not have a PCP currently. Formerly a heavy drinker, she been sober for the past 3 months and is supported by AA involvement. She denies CP, SOB, fever, chills, n/v/d. She denies smoking, current alcohol use, or drug use. She does use marijuana gummies. She has not had a colonoscopy and her last pap was 5 years ago. She has only had one mammogram done and did not go back due to anxiety. She has no changes to her medications. 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 Physical Exam General: Cooperative, thin appearing, comfortable, no acute distress Orientation: Patient oriented x3 Eyes: Appearance normal, both eyes and all related structures. No nystagmus noted. Neck: Normal visual inspection and Yes full ROM Respiratory: Normal respiratory effort and able to speak in complete sentences. Clear to auscultation bilaterally Cardiovascular: Regular rate and rhythm. Normal S1 and S2 GI: Normal to inspection. Soft to palpation and nontender. No guarding or rebound tenderness noted. Skin: No rashes or lesions noted Neuro: Patient oriented x3 Extremities: Normal to inspection. No edema noted. Patient was informed and verbally consented to the use of an ambient scribe for clinic note documentation during this visit. [facility] Medical History Alcohol use disorder Depression Social History Household Members: Significant Other and Children Housing: House Do you presently have visiting nurse or other home services: No Unable to assess alcohol history related to: Unknown Alcohol intake: current Patient Tobacco Use Status: Never used Tobacco Tobacco use type: Cigarette Cigarette Packs Per Day: 0.1 Cigarettes Per Day: 2.0 Second Hand Smoke Exposure: No Substance Use Type: Marijuana service: No Sexual orientation: Straight/Heterosexual Review of Systems Const All systems reviewed & are unremarkable except as noted in HPI and below Physical Exam Vital Signs: Last Vital Signs Temp 98.4 F 07/22/24 13:30 Pulse 61 07/22/24 13:30 BP 118/76 07/22/24 13:30 Pulse Ox 93 07/22/24 13:30 Oxygen Delivery Method Room Air 07/22/24 13:30 Results AMB Urinalysis, Automated UA Leukoctes 15 Allen/uL Last Edit by MUKUND Torres on 07/22/24 14:30 UA Nitrite Negative Last Edit by MUKUND Torres on 07/22/24 14:30 UA Urobilinogen 0.2 mg/dL Last Edit by MUKUND Torres on 07/22/24 14:30 UA Protein 0 mg/dL Last Edit by MUKUND Torres on 07/22/24 14:30 UA pH 6.0 Last Edit by MUKUND Torres on 07/22/24 14:30 UA Blood 0 Lalo/uL Last Edit by MUKUND Torres on 07/22/24 14:30 UA Specific [place] 1.020 Last Edit by MUKUND Torres on 07/22/24 14:30 UA Ketone Negative Last Edit by MUKUND Torres on 07/22/24 14:30 UA Bilirubin 0 mg/dL Last Edit by MUKUND Torres on 07/22/24 14:30 UA Glucose 0 mg/dL Last Edit by MUKUND Torres on 07/22/24 14:30 Assessment & Plan Assessment & Plan (1) Weight loss: Code(s): R63.4 - Abnormal weight loss Plan Most likely due to depression vs alcohol use vs medication reaction vs diet related vs thyroid issues Plan Initial plans involve conducting extensive laboratory tests, including a full blood count, comprehensive metabolic panel, liver function, and thyroid function tests, to explore potential causes of her weight loss and associated symptoms. Ensuring adequate nutrition, the patient is advised to intake Ensure nutritional drinks three times daily, potentially replacing meals. For managing nausea, Zofran (ondansetron) is prescribed, targeting improved nutritional intake and medication adherence. Will try to get her an appointment with a PCP. Orders: Orders GI Panel Today R63.4 - Abnormal weight loss TSH reflex Free T4 Today R63.4 - Abnormal weight loss Complete Blood Count Auto Diff Today R63.4 - Abnormal weight loss AMB Urinalysis Automated Today Z13.9 - Encounter for screening, unspecified Comprehensive Met. Panel Today R63.4 - Abnormal weight loss Medications: New ondansetron 4 mg PO Q8H PRN 10 tabs 0RF nausea and vomiting Coding Level of Care Code New Pt Level 4 (98462) Diagnoses Weight loss R63.4
[2024-07-22 13:30] VITALS: BP 118/76; PULSE 61; TEMP 36.9; O2SAT 93
--- OUTSIDE RECORDS SUMMARY | 2024-07-22 15:03 | XMS_ITS | Encounter Summary ---
Author Organization [facility] Address [address] [place] [address] Care Team Providers Care Construction Manager Name Role Phone Community, Pcp Primary Care Provider Brandi Leigh MD Primary Care Provider [phone] Jus Lucas MD Primary Care Provider [phone] Yokasta Samaniego MD Primary Care Provider Lisa Centeno MD Primary Care Provider [phone] Reason for Visit * Reason Comments APPOINTMENT Encounter Details Date Type Department Care Team Description 06/30/2003 Telephone Gastroenterology - [address] [address] Jaswinder Waldron MD APPOINTMENT Social History Tobacco Use Types Packs/Day Years Used Date Smoking Tobacco: Never Assessed Sex Assigned at Date Recorded Not on file Job Start Date Occupation Industry Not on file Not on file Not on file documented as of this encounter Miscellaneous Notes * Telephone Encounter - 06/30/2003 11:41 AM Makenzie Westfall * Telephone Encounter - 06/30/2003 11:39 AM EDTCALL RECEIVED. Contact: SELF [phone] PT CALLING TO MAKE A F/U WITH DR WALDRON documented in this encounter Plan of Treatment Not on file documented as of this encounter Visit Diagnoses Not on filedocumented in this encounter Care Teams Construction Manager Relationship Specialty Start Date End Date Formerly [facility], Pcp PCP - General 05/19/09 07/24/18 Brandi Diaz MD [address] [place] [id number] PCP - General 08/19/1994 05/18/09 Jus Lucas MD [address] [place] [id number] PCP - General Internal Medicine 07/25/18 09/10/18 Yokasta Samaniego MD [address] [place] [id number] PCP - General Internal Medicine 09/11/18 10/11/20 Lisa Centeno MD [address] [place] [id number] PCP - General Internal Medicine 10/12/20 documented as of this encounter
== END 2024-07-22 15:08 | disposition home or self-care (01) ==
PROVIDERS: Visit Provider Physician Assistant Medical
DX: R63.4 Abnormal weight loss (principal)

== ENCOUNTER 2024-07-22 13:26 | Outpatient (REF) | payer OTHER, SELFPAY ==
[2024-07-22 17:04] LABS: MANUAL DIFF FLAG NO
[2024-07-22 17:13] LABS: Basophils Absolute Auto 0.1 X10*3/uL (0.0-0.2); Eosinophils Percent Auto 0.5 % (0-4); Hematocrit 38.4 % (37.0-47.0); Imm Gran Abs Auto 0.02 X10*3/uL (0.00-0.03); Imm Gran Pct Auto 0.3 % (0.0-0.4); Lymphocytes Absolute Auto 1.4 X10*3/uL (1.2-4.9); Lymphocytes Percent Auto 23.9 % (20-40); Mean Corpuscular HGB Conc 33.9 g/dl (31.0-35.0); Mean Corpuscular Volume 88.5 fL (80.0-98.0); Mean Platelet Volume 9.6 fL (9.4-12.3); Monocytes Absolute Auto 0.3 X10*3/uL (0.1-1.2); Monocytes Percent Auto 4.8 % (2-11); Neutrophils Absolute Auto 4.2 x10*3/uL (2.0-8.3); Neutrophils Percent Auto 69.5 % (45-73); Platelet Count 338 X10*3/uL (160-400); Red Blood Count 4.34 X10*6/uL (4.20-5.50); Red Cell Distribution Width 12.3 % (11.0-16.0)
[2024-07-22 17:40] LABS: Alanine Aminotransferase 15 U/L (0-31); Albumin Level 4.7 g/dL (3.5-5.0); Alkaline Phosphatase 43 U/L (39-117); Anion Gap 12 (12-20); Aspartate Amino Transferase 17 U/L (5-31); Bilirubin Total 0.6 mg/dL (0.0-1.0); Blood Urea Nitrogen 19 mg/dL (9-16); Calcium 9.9 mg/dL (8.4-10.2); Carbon Dioxide 30 mmol/L (22-29); Chloride 102 mmol/L (96-108); Estimated Glomerular Filt Rate > 60; Glucose Random 126 mg/dL (60-115); Sodium 140 mmol/L (135-145); Total Protein 7.1 g/dL (6.5-8.0)
== END 2024-07-22 13:27 | disposition home or self-care (01) ==
LOC: HO.HMGCLDS 13:26
PROVIDERS: Visit Provider Physician Assistant Medical
DX: R63.4 Abnormal weight loss (principal); Z13.9 Encounter for screening, unspecified
CPT/HCPCS: 36415; 80053; 81003; 84443; 85025; 99202

== ENCOUNTER 2024-08-10 15:31 | Emergency (ER) | payer OTHER, SELFPAY ==
[2024-08-10 15:33] VITALS: BP 139/67; PULSE 58; RESP 18; TEMP 36.7; O2SAT 98; BMI 19.1
--- NOTE | 2024-08-10 15:37 | ED_ITS ---
HPI - General Adult General Chief complaint: General Medical Stated complaint: not eating/loosing weight lost 30lbs last 2 months Time Seen by Provider: 08/10/24 16:28 Source: patient Mode of arrival: ambulatory Limitations: no limitations History of Present Illness ED Provider: Dr. Rip Del Angel HPI narrative: 53-year-old female with a history depression, anxiety, PTSD, alcohol use disorder in remission x4 months who presents emergency department for evaluation of unexplained 30 lb weight loss over 3 months (since May 2024). Patient states that she has nausea which is relieved by Zofran. She states she has had no appetite and has been eating very little food. She states that yesterday she was able to eat half a sandwich and a protein bar. She states she was drinking ensure but was not gaining weight. The patient does not believe that she is under increased stress for that her depression is worse. She has never had an eating disorder. She states that she has frontal headaches but these are chronic and have not changed. She denied fever, chills, rash, myalgias, arthralgias, vomiting, diarrhea, increased fatigue, change in the color of her skin. She states that her hair has been thinning. Related Data Home Medications ?Medication ?Instructions ?Recorded ?Confirmed bupropion HCl 150 mg 24 hr tablet, 150 mg PO DAILY dep ressive disorder 11/28/23 01/23/24 extended release propranolol 60 mg capsule,24 60 mg PO DAILY panic bebo ck 11/28/23 01/23/24 hr,extended release sertraline 50 mg tablet 100 mg PO DAILY 11/28/2306/12 Previous Rx's ?Medication ?Instructions ?Recorded naltrexone 50 mg tablet 50 mg PO DAILY #30 tabs 06/12 ondansetron 4 mg disintegrating 4 mg PO Q8H PRN nausea and 07/22/24 tablet vomiting #10 tabs Allergies Allergy/AdvReac Type Severity Reaction Status Date / Time droperidol (From INAPSINE) Allergy Severe MUSCLE Verified 08/10/24 15:36 CRAMPS Review of Systems 2 Review of Systems: Yes all other systems are reviewed and are negative PMFSH Past Medical History PMFSH Narrative: Social history: The patient denies tobacco use. She states that she did have alcohol use disorder but he has been attending AA meetings once a week in his has been sober for 4 months. She states she occasionally eats a marijuana gummy but does not use any other drugs. Medical History Alcohol use disorder Depression Social History Social History Household Members: Significant Other and Children Housing: House Do you presently have visiting nurse or other home services: No Unable to assess alcohol history related to: Unknown Alcohol intake: current Patient Tobacco Use Status: Never used Tobacco Tobacco use type: Cigarette Cigarette Packs Per Day: 0.1 Cigarettes Per Day: 2.0 Second Hand Smoke Exposure: No Substance Use Type: Marijuana Advance Directives: No Advance Directives Information Provided: No Do you have a plan to hurt others: No Plan service: No Sexual orientation: Straight/Heterosexual Physical Exam ED Vital Signs: Vital Signs - 24 hr 08/10/24 15:33 08/10/24 17:10 Temperature 98.1 F 98.1 F Pulse Rate 58 58 Respiratory Rate 18 18 Blood Pressure 139/67 139/67 Pulse Oximetry 98 98 Oxygen Delivery Method Room Air Room Air BMI result Body Mass Index 18.6 Vital signs revealed a low heart rate of 58 otherwise unremarkable. Exam: General: Awake, alert in no distress, actual weight 50.6 kg with a low BMI of 19.1 kg per m2. Head: Normocephalic, atraumatic EENT: PERRL, Lids normal, sclera normal, conjunctiva normal, nose normal , ears normal, throat without erythema or exudates Neck: Supple, no adenopathy Lung: breath sounds symmetric, no wheezing, rales or rhonchi Chest: symmetric movement, nontender Heart: regular rate and rhythm, normal S1, S2 no murmurs or rubs Abdomen: soft, non-tender, nondistended, normal bowel sounds Back: no vertebral tenderness, no CVAT Extremities: no deformities, moves all extremities symmetrically Skin: No rashes, lesions, no increased pigmentation Neuro: Awake, alert, oriented, normal speech, cranial nerves intact, moves all extremities symmetrically Psych: Pleasant, cooperative Course Course Course Narrative: RME: 53 yold presents to the ED for weight loss of 30lbs the past two months, decrease appettite, and hair loss. [facility]. patient states no abdominal pain. Medical Decision Making Medical Decision Making [facility] Narrative: 53-year-old female with a history depression, anxiety, PTSD, alcohol use disorder in remission x4 months who presents emergency department for evaluation of unexplained 30 lb weight loss over 3 months (since May 2024). Patient states that she has nausea which is relieved by Zofran. She states she has had no appetite and has been eating very little food. She states that yesterday she was able to eat half a sandwich and a protein bar. She states she was drinking ensure but was not gaining weight. The patient does not believe that she is under increased stress for that her depression is worse. She has never had an eating disorder. She states that she has frontal headaches but these are chronic and have not changed. She denied fever, chills, rash, myalgias, arthralgias, vomiting, diarrhea, increased fatigue, change in the color of her skin. She states that her hair has been thinning. Physical examination revealed a low body weight of 50.6 kg and a very low BMI of 18.6 kg per m2. Her exam was otherwise unremarkable. Differential diagnosis: ?Includes but is not limited toEating disorder, nutritional deficiencies, thyroid disease, Kaz's disease, malignancy, anemia, electrolyte abnormalities Course: My independent interpretation patient's laboratory evaluation is as follows: CBC was normal. Glucose elevated 147. CMP was otherwise unremarkable. CRP was below detectable limits. TSH was normal at 2.63. Ethanol was below detectable limits. At this time I do not have a clear etiology for the patient's unexplained weight loss. The patient does have a low BMI and I do believe that she has lost weight. Patient was advised to follow up with her PCP for further evaluation of her weight loss. Admission/Observation Consideration of admission/observation: Escalation of care including admission/observation considered ( yes) Lab Data [facility] Lab Attestation statement: I reviewed the patient's lab results. 08/10/24 15:47 08/10/24 15:47 Labs: Lab Results 08/10/24 Range/Units 15:47 WBC 5.0 (4.8-10.8) X10*3/uL RBC 4.07 L (4.20-5.50) X10*6/uL Hgb 12.3 (12.0-16.0) g/dl Hct 37.1 (37.0-47.0) % MCV 91.2 (80.0-98.0) fL MCH 30.2 (27.0-33.0) pg MCHC 33.2 (31.0-35.0) g/dl RDW 12.7 (11.0-16.0) % Plt Count 337 (160-400) X10*3/uL MPV 9.4 (9.4-12.3) fL Immature Gran % (Auto) 0.2 (0.0-0.4) % Neut % (Auto) 65.5 (45-73) % Lymph % (Auto) 27.5 (20-40) % Green % (Auto) 5.0 (2-11) % Eos % (Auto) 1.2 (0-4) % Baso % (Auto) 0.6 (0-2) % Lymph # (Auto) 1.4 (1.2-4.9) X10*3/uL Green # (Auto) 0.3 (0.1-1.2) X10*3/uL Eos # (Auto) 0.1 (0.0-0.4) X10*3/uL Baso # (Auto) 0.0 (0.0-0.2) X10*3/uL Abs Immat Gran (auto) 0.01 (0.00-0.03) X10*3/uL Absolute Neuts (auto) 3.3 (2.0-8.3) x10*3/uL Absolute Nucleated RBC 0.000 (0.0-0.012) X10*3/uL Nucleated RBC % (auto) 0.0 (0.0-0.2) /100WBC ESR 6 (0-20) MM/HR Sodium 141 (135-145) mmol/L Potassium 3.9 (3.3-5.1) mmol/L Chloride 104 (96-108) mmol/L Carbon Dioxide 29 (22-29) mmol/L Anion Gap 12 (12-20) BUN 12 (9-16) mg/dL Creatinine 0.80 (0.5-1.4) mg/dL Estim Creat Clear Calc 66.1 Estimated GFR > 60 Random Glucose 147 H (60-115) mg/dL Calcium 9.6 (8.4-10.2) mg/dL Magnesium 2.1 (1.6-2.6) mg/dL Total Bilirubin 0.3 (0.0-1.0) mg/dL AST 16 (5-31) U/L ALT 13 (0-31) U/L Alkaline Phosphatase 43 (39-117) U/L C-Reactive Protein < 0.04 (< or = 0.50) mg/dL Total Protein 6.5 (6.5-8.0) g/dL Albumin 4.4 (3.5-5.0) g/dL TSH 2.63 (0.32-4.0) uIU/mL Ethyl Alcohol < 10 mg/dL Discharge Plan Discharge Clinical Impression: Unexplained weight loss, Hair thinning, Loss of appetite Patient Disposition: Home, Self-Care Additional Instructions: Your lab evaluation today included a complete blood count (CBC), comprehensive metabolic panel (CMP) and a thyroid stimulating hormone thyroid screening test (TSH). These tests were all normal. I did add inflammatory markers (CRP and ESR) to your laboratory evaluation and I will call you later today when these results are available. Your physical examination did not reveal any specific signs or symptoms to help determine the cause of your weight loss. Your weight was 50.6 kg (111.6 lb) with a low BMI of 18.6 kilograms per mm squared. I want you to get a scale and 3 times a week to track your weight At this time, I do believe that you have lost a lot of weight and it is important that you follow up with your doctor for further evaluation. You should try to eat a high-protein and high carbohydrate diet. Using flavor protein powder with milk is a cheaper way of getting higher protein then using ensure. Follow-up with your doctor in 2 days. Please return to the emergency department if your symptoms get worse or if you develop any symptoms that are concerning to you. Prescriptions: No Action propranolol 60 mg capsule,extended release 24 hr 60 mg PO DAILY bupropion HCl 150 mg tablet extended release 24 hr 150 mg PO DAILY sertraline 50 mg tablet 100 mg PO DAILY naltrexone 50 mg tablet 50 mg PO DAILY Qty: 30 0RF Rx Instructions: take 1/2 tab daily for 3 days then increase to one tab daily ondansetron 4 mg tablet,disintegrating 4 mg PO Q8H PRN (Reason: nausea and vomiting) Qty: 10 0RF Interventions: ED Discharge Assessment Last Done: 08/10/24 17:10 Discharge Date/Time: 08/10/24 17:10 Print Language: [place]
[2024-08-10 15:52] LABS: Basophils Percent Auto 0.6 % (0-2); Eosinophils Absolute Auto 0.1 X10*3/uL (0.0-0.4); Eosinophils Percent Auto 1.2 % (0-4); Hematocrit 37.1 % (37.0-47.0); Hemoglobin 12.3 g/dl (12.0-16.0); Imm Gran Abs Auto 0.01 X10*3/uL (0.00-0.03); Imm Gran Pct Auto 0.2 % (0.0-0.4); Lymphocytes Absolute Auto 1.4 X10*3/uL (1.2-4.9); Lymphocytes Percent Auto 27.5 % (20-40); MANUAL DIFF FLAG NO; Mean Corpuscular HGB Conc 33.2 g/dl (31.0-35.0); Mean Corpuscular Hemoglobin 30.2 pg (27.0-33.0); Mean Corpuscular Volume 91.2 fL (80.0-98.0); Mean Platelet Volume 9.4 fL (9.4-12.3); Monocytes Absolute Auto 0.3 X10*3/uL (0.1-1.2); Neutrophils Absolute Auto 3.3 x10*3/uL (2.0-8.3); Neutrophils Percent Auto 65.5 % (45-73); Platelet Count 337 X10*3/uL (160-400); Red Blood Count 4.07 X10*6/uL (4.20-5.50); Red Cell Distribution Width 12.7 % (11.0-16.0)
[2024-08-10 16:13] LABS: Alanine Aminotransferase 13 U/L (0-31); Albumin Level 4.4 g/dL (3.5-5.0); Alkaline Phosphatase 43 U/L (39-117); Anion Gap 12 (12-20); Aspartate Amino Transferase 16 U/L (5-31); Bilirubin Total 0.3 mg/dL (0.0-1.0); Blood Urea Nitrogen 12 mg/dL (9-16); Calcium 9.6 mg/dL (8.4-10.2); Carbon Dioxide 29 mmol/L (22-29); Chloride 104 mmol/L (96-108); Creatinine Clr Calc Pharmacy 66.1; Estimated Glomerular Filt Rate > 60; Glucose Random 147 mg/dL (60-115); Magnesium 2.1 mg/dL (1.6-2.6); Potassium 3.9 mmol/L (3.3-5.1); Sodium 141 mmol/L (135-145); Total Protein 6.5 g/dL (6.5-8.0)
[2024-08-10 16:27] LABS: TSH reflex Free T4 2.63 uIU/mL (0.32-4.0)
[2024-08-10 16:43] LABS: Ethanol < 10 mg/dL
--- NOTE | 2024-08-10 16:52 | PC.NURSE ---
spoke with Cynthia in Lab- will add on ESR and CRP- MD aware
[2024-08-10 16:54] VITALS: BMI 18.6
[2024-08-10 17:07] LABS: C Reactive Protein < 0.04 mg/dL (< or = 0.50)
[2024-08-10 17:10] VITALS: BP 139/67; PULSE 58; RESP 18; TEMP 36.7; O2SAT 98
[2024-08-10 17:43] LABS: Erythrocyte Sedimentation Rate 6 MM/HR (0-20)
== END 2024-08-10 17:10 | disposition home or self-care (01) ==
PROVIDERS: Physician Assistant; Emergency Provider Emergency Medicine Emergency Medical Services
DX: R63.0 Anorexia (principal); Z79.899 Other long term (current) drug therapy; Z51.81 Encounter for therapeutic drug level monitoring
CPT/HCPCS: 36415; 80053; 80307; 83735; 84443; 85025; 85652; 86140; 99282; 99283

== ENCOUNTER 2024-10-03 19:23 | Emergency (ER) | payer OTHER, SELFPAY ==
--- NOTE | 2024-10-03 | ECG_ITS ---
Test Reason : tachy Blood Pressure : */* mmHG Vent. Rate : 67 BPM Atrial Rate : 67 BPM P-R Int : 152 ms QRS Dur : 64 ms QT Int : 446 ms P-R-T Axes : 79 66 75 degrees QTcB Int : 471 ms Normal sinus rhythm Normal ECG When compared with ECG of 01-Mar-2023 12:24, Premature ventricular complexes are no longer Present Referred By: Generic ED Physician Electronically Signed By: Jalil Olson
[2024-10-03 19:38] VITALS: BP 124/79; BP 128/82; PULSE 105; PULSE 99; RESP 12; TEMP 36.7; O2SAT 100; BMI 17.6
[2024-10-03 19:58] LABS: MANUAL DIFF FLAG NO
[2024-10-03 19:59] LABS: Hematocrit 37.0 % (37.0-47.0); Hemoglobin 12.5 g/dl (12.0-16.0); Imm Gran Abs Auto 0.02 X10*3/uL (0.00-0.03); Imm Gran Pct Auto 0.3 % (0.0-0.4); Lymphocytes Absolute Auto 1.2 X10*3/uL (1.2-4.9); Mean Corpuscular HGB Conc 33.8 g/dl (31.0-35.0); Mean Corpuscular Hemoglobin 29.8 pg (27.0-33.0); Mean Corpuscular Volume 88.1 fL (80.0-98.0); NRBC Abs Auto 0.000 X10*3/uL (0.0-0.012); NRBC Pct Auto 0.0 /100WBC (0.0-0.2); Platelet Count 256 X10*3/uL (160-400); Red Blood Count 4.20 X10*6/uL (4.20-5.50); White Blood Count 6.3 X10*3/uL (4.8-10.8)
[2024-10-03 20:00] VITALS: BP 134/65; PULSE 80; RESP 12; TEMP 36.9; O2SAT 100
[2024-10-03 20:26] LABS: Alanine Aminotransferase 43 U/L (0-31); Albumin Level 4.3 g/dL (3.5-5.0); Alkaline Phosphatase 43 U/L (39-117); Anion Gap 18 (12-20); Aspartate Amino Transferase 33 U/L (5-31); Blood Urea Nitrogen 17 mg/dL (9-16); Calcium 9.4 mg/dL (8.4-10.2); Carbon Dioxide 24 mmol/L (22-29); Chloride 106 mmol/L (96-108); Creatinine Clr Calc Pharmacy 62.6; Estimated Glomerular Filt Rate > 60; Potassium 3.6 mmol/L (3.3-5.1); Sodium 144 mmol/L (135-145); Total Protein 6.5 g/dL (6.5-8.0)
[2024-10-03 20:33] LABS: Troponin-I High Sensitivity 2.7 ng/L (<3.5-17.0)
--- NOTE | 2024-10-03 21:37 | ED_ITS ---
HPI - General Adult General Chief complaint: General Medical Stated complaint: DIZZY, VOMITTING, NAUSEA S/P SUTURES AT UC Time Seen by Provider: 10/03/24 21:35 Source: patient and EMS Mode of arrival: EMS Limitations: no limitations History of Present Illness ED Provider: Tip MILLER HPI narrative: The patient is a 54-year-old female presenting to the ED for evaluation of syncopal episode occurring at urgent Care while she was undergoing suture repair of lacerations to the bottom of her left foot. Patient reports she earlier today stepped on a pair of snips causing 2 lacerations to the bottom of her foot, patient was at urgent Care getting the foot repaired when she suffered severe dizziness, nausea, and vomited. The patient reportedly had a drop in her blood pressure to 100/50 and heart rate to 50. Urgent care activated EMS who gave atropine, Zofran, and 500 cc of normal saline. The patient reports since interventions by EMS she feels markedly improved. Denies active acute somatic complaint. Patient reports urgent care provider advised there was still additional laceration repair needed. Related Data Home Medications ?Medication ?Instructions ?Recorded ?Confirmed bupropion HCl 150 mg 24 hr tablet, 150 mg PO DAILY dep ressive disorder 11/28/23 01/23/24 extended release propranolol 60 mg capsule,24 60 mg PO DAILY panic bebo ck 11/28/23 01/23/24 hr,extended release sertraline 50 mg tablet 100 mg PO DAILY 11/28/2306/12 Previous Rx's ?Medication ?Instructions ?Recorded naltrexone 50 mg tablet 50 mg PO DAILY #30 tabs 06/12 ondansetron 4 mg disintegrating 4 mg PO Q8H PRN nausea and 07/22/24 tablet vomiting #10 tabs Allergies Allergy/AdvReac Type Severity Reaction Status Date / Time droperidol (From INAPSINE) Allergy Severe MUSCLE Verified 10/03/24 19:43 CRAMPS Review of Systems 2 Review of Systems: Yes all other systems are reviewed and are negative [facility] Past Medical History Medical History Alcohol use disorder Depression Social History Social History Household Members: Significant Other and Children Housing: House Do you presently have visiting nurse or other home services: No Unable to assess alcohol history related to: Unknown Alcohol intake: current Patient Tobacco Use Status: Never used Tobacco Tobacco use type: Cigarette Cigarette Packs Per Day: 0.1 Cigarettes Per Day: 2.0 Second Hand Smoke Exposure: No Substance Use Type: Marijuana Advance Directives: No Advance Directives Information Provided: Yes service: No Sexual orientation: Straight/Heterosexual Physical Exam ED Vital Signs: Vital Signs - 24 hr 10/03/24 19:38 10/03/24 20:00 10/03/24 22:00 Temperature 98.1 F 98.4 F 98.5 F Pulse Rate 99 80 72 Respiratory Rate 12 12 12 Blood Pressure 124/79 134/65 108/60 Pulse Oximetry 100 100 100 Oxygen Delivery Method Room Air Room Air Room Air BMI result Body Mass Index 17.6 CONSTITUTIONAL: The patient appears non-toxic, well nourished and in no acute distress. Vital signs as documented. HEAD: Atraumatic, normocephalic. EYES: EOMs grossly intact, pupils equal, conjunctiva clear, no exudate. ENT: Nares patent, no discharge. Airway patent, no audible stridor, visible mucosa is pink and moist without noted lesions. NECK: Trachea is midline, no obvious masses or gross abnormalities. CHEST: Symmetric movement, normal appearance. LUNGS: LS present and CTAB, no w/r/r. Non-labored work of breathing. CARDIAC: Regular Rhythm, S1/S2 appreciated, no murmurs, rubs or gallops. ABDOMEN: Abdomen soft and non-tender x4 quadrants, no palpable masses or organomegaly. : Deferred. EXTREMITIES: Arch of the left foot demonstrates 2 lacerations, 1 approximately 1.5 cm in length with [address] No gaping or opening with traction. There is a nearby 0.5 cm non gaping laceration noted, without repair. Distal CSM is intact, minimal capillary bleeding noted only with manual traction of the non repaired laceration. Normal tone, moves all extremities spontaneously without reported pain. No obvious acute injury or deformity noted. NEURO: Alert and oriented x3, CN II-XII appear grossly intact. Cerebellar Functioning grossly intact. No obvious sensory or motor deficits. Speech clear and appropriate. PSYCH: normal affect, appropriate eye contact, fluid speech, with appropriate response to questioning. No reported suicidality or homicidality. SKIN: Warm, dry, color appropriate, normal turgor. No rashes noted. Procedures Laceration Laceration 1: Site: lower extremity Side (If applicable): left Size (cm): 0.5 Description: linear Depth: simple, single layer Skin layer closed with: other (Skin Adhesive) Medical Decision Making Medical Decision Making [facility] Narrative: 9:58 PM 10/03/2024 (Margarito MILLER): Patient is a 54-year-old female presenting to the ED for evaluation after what appears to be a vasovagal episode while having a laceration of her foot repaired at urgent care. In the ED patient has been normotensive without fever, hypoxia, or arrhythmia. The patient's EKG is nonischemic. Patient's laboratory evaluation shows no leukocytosis, anemia, electrolyte abnormality, or KIMBERLEE. Troponin is negative. The patient's 0.5 cm and a repaired laceration will be repaired with Dermabond and patient will be discharged to follow up with PCP. Admission/Observation Consideration of admission/observation: Escalation of care including admission/observation considered Lab Data [facility] Lab Attestation statement: I reviewed the patient's lab results. 10/03/24 19:52 10/03/24 19:52 Labs: Lab Results 10/03/24 Range/Units 19:52 WBC 6.3 (4.8-10.8) X10*3/uL RBC 4.20 (4.20-5.50) X10*6/uL Hgb 12.5 (12.0-16.0) g/dl Hct 37.0 (37.0-47.0) % MCV 88.1 (80.0-98.0) fL MCH 29.8 (27.0-33.0) pg MCHC 33.8 (31.0-35.0) g/dl RDW 12.8 (11.0-16.0) % Plt Count 256 (160-400) X10*3/uL MPV 9.1 L (9.4-12.3) fL Immature Gran % (Auto) 0.3 (0.0-0.4) % Neut % (Auto) 76.4 H (45-73) % Lymph % (Auto) 18.1 L (20-40) % [place] % (Auto) 3.9 (2-11) % Eos % (Auto) 0.5 (0-4) % Baso % (Auto) 0.8 (0-2) % Lymph # (Auto) 1.2 (1.2-4.9) X10*3/uL [place] # (Auto) 0.3 (0.1-1.2) X10*3/uL Eos # (Auto) 0.0 (0.0-0.4) X10*3/uL Baso # (Auto) 0.1 (0.0-0.2) X10*3/uL Abs Immat Gran (auto) 0.02 (0.00-0.03) X10*3/uL Absolute Neuts (auto) 4.8 (2.0-8.3) x10*3/uL Absolute Nucleated RBC 0.000 (0.0-0.012) X10*3/uL Nucleated RBC % (auto) 0.0 (0.0-0.2) /100WBC Sodium 144 (135-145) mmol/L Potassium 3.6 (3.3-5.1) mmol/L Chloride 106 (96-108) mmol/L Carbon Dioxide 24 (22-29) mmol/L Anion Gap 18 (12-20) BUN 17 H (9-16) mg/dL Creatinine 0.77 (0.5-1.4) mg/dL Estim Creat Clear Calc 62.6 Estimated GFR > 60 Random Glucose 82 (60-115) mg/dL Calcium 9.4 (8.4-10.2) mg/dL Total Bilirubin 0.5 (0.0-1.0) mg/dL AST 33 H (5-31) U/L ALT 43 H (0-31) U/L Alkaline Phosphatase 43 (39-117) U/L Troponin I High Sens 2.7 (<3.5-17.0) ng/L Total Protein 6.5 (6.5-8.0) g/dL Albumin 4.3 (3.5-5.0) g/dL Independent Interpretation I performed an independent interpretation of an: EKG (EKG shows sinus rhythm with a rate of 67, no evidence of acute ischemia, no ST elevation, no ectopy. There is artifact in V6. QTC 471. Compared to previous from 03/01/2023 PVCs have resolved, no other acute morphology changes.) External Record Review External record reviewed: Outpatient record Discharge Plan Discharge Clinical Impression: Vasovagal near syncope, Foot laceration Patient Disposition: Home, Self-Care Instructions: Laceration (ED), Near Syncope (ED), Skin Adhesive Care (ED) Additional Instructions: Thank you for choosing [facility]'s Emergency Department for your care today. Thankfully your laboratory evaluation, EKG, and exam today are reassuring. At this time there is no indication for admission to the hospital or continued ED observation, and it is safe to discharge you home. Your episode of low blood pressure, dizziness, and vomiting today is consistent with a vasovagal episode as a result of your laceration repair that was occurring at the time of the symptom onset. Please stay well hydrated and get plenty of rest. We repaired your on repaired laceration with Dermabond, this should wash off with regular bathing in the next 5-7 days. Your other laceration was repaired with sutures by the urgent care facility, we recommend you follow up with the primary care provider or the urgent care facility in 5-7 days for re-evaluation and consideration of removal. Please do not submerge the repaired lacerations in standing water until sutures are removed. Please follow up with the urgent care center and your primary care physician for re-evaluation, additional management of your symptoms, and continued preventative care. If you do not have a primary care physician, please call the [facility] at [phone] to establish a new primary care physician. While waiting to establish your new primary care physician, you can call our [facility] at [phone] for non-emergency needs. Please return to the emergency department if you develop a severe or sudden change in your symptoms, a fever over 100.4 that does not improve with Tylenol or Ibuprofen, recurrent vomiting, or any other new or worsening symptoms or concerns. Prescriptions: No Action propranolol 60 mg capsule,extended release 24 hr 60 mg PO DAILY bupropion HCl 150 mg tablet extended release 24 hr 150 mg PO DAILY sertraline 50 mg tablet 100 mg PO DAILY naltrexone 50 mg tablet 50 mg PO DAILY Qty: 30 0RF Rx Instructions: take 1/2 tab daily for 3 days then increase to one tab daily ondansetron 4 mg tablet,disintegrating 4 mg PO Q8H PRN (Reason: nausea and vomiting) Qty: 10 0RF Referrals: Lisa Centeno MD [Primary Care Provider, Internal Medicine] Clinical Impression: Vasovagal near syncope; Foot laceration Print Language: Chilean
[2024-10-03 22:00] VITALS: BP 108/60; PULSE 72; RESP 12; TEMP 36.9; O2SAT 100
[2024-10-03 22:37] VITALS: BP 108/60; PULSE 72; RESP 12; TEMP 36.9; O2SAT 100
== END 2024-10-03 22:37 | disposition home or self-care (01) ==
PROVIDERS: Emergency Provider Emergency Medicine; PCP Internal Medicine
DX: S91.312A Laceration without foreign body, left foot, initial encounter (principal); R42 Dizziness and giddiness; R11.2 Nausea with vomiting, unspecified; R00.0 Tachycardia, unspecified; I95.9 Hypotension, unspecified; W26.9XXA Contact with unspecified sharp object(s), initial encounter; Y93.9 Activity, unspecified; Y92.9 Unspecified place or not applicable; Y99.8 Other external cause status; Z79.899 Other long term (current) drug therapy
CPT/HCPCS: 12001; 36415; 80053; 84484; 85025; 93005; 99283; 99284

== ENCOUNTER → 2024-10-03 21:26 | Outpatient (BNV) | payer OTHER, SELFPAY | PROVIDERS: Emergency Provider Emergency Medicine; PCP Internal Medicine; Visit Provider Internal Medicine Cardiovascular Disease | DX: R00.0 Tachycardia, unspecified (principal) | CPT/HCPCS: 93010 ==

== ENCOUNTER 2024-10-23 11:46 | Emergency (ER) | payer OTHER, SELFPAY ==
--- NOTE | 2024-10-23 | ECG_ITS ---
Test Reason : SOB/N/V Blood Pressure : */* mmHG Vent. Rate : 52 BPM Atrial Rate : 52 BPM P-R Int : 130 ms QRS Dur : 76 ms QT Int : 470 ms P-R-T Axes : 67 39 55 degrees QTcB Int : 437 ms Sinus bradycardia Otherwise normal ECG When compared with ECG of 03-Oct-2024 21:26, Criteria for Septal infarct are no longer Present Referred By: Generic ED Physician Electronically Signed By: Jalil Olson
--- NOTE | ~2024-10-23 | XR_ITS ---
EXAMINATION: XR CHEST CLINICAL INFORMATION: sepsis , unclear source COMPARISON: None available. TECHNIQUE: Frontal view of the chest was obtained. FINDINGS: No significant abnormality is noted involving the heart, lungs, mediastinum, bony thorax or soft tissues. XR/XR chest 1V IMPRESSION: Unremarkable examination. Electronically signed by: Mark Tang MD 10/23/2024 01:16 PM EDT RP
[2024-10-23 12:02] VITALS: BMI 18.0
[2024-10-23 12:05] VITALS: BP 113/57; BP 122/70; PULSE 54; PULSE 94; RESP 17; TEMP 35.9; O2SAT 100; O2SAT 99; BMI 18.0
--- NOTE | 2024-10-23 12:30 | ED.WEAKNESS ---
HPI - Weakness General Chief complaint: Weakness Stated complaint: NAUSEA VOMITING DIARRHEA Time Seen by Provider: 10/23/24 12:13 History of Present Illness ED Provider: Nii Purdy MD HPI Narrative: 54-year-old female with underlying behavioral health issues, depression, alcohol use disorder who reports rather abrupt onset generalized weakness unwell feeling nausea nonbloody nonbilious vomiting. A partner reports she was well when she woke this morning and over the past few days no illness vomiting or other symptoms to report. Patient herself is feeling ill and not contributing much to history but denies abdominal pain joint pain other than chronic thumb arthritis. Related Data Home Medications ?Medication ?Instructions ?Recorded ?Confirmed bupropion HCl 150 mg 24 hr tablet, 150 mg PO DAILY depressive disorder 11/28/23 01/23/24 extended release propranolol 60 mg capsule,24 60 mg PO DAILY panic attack 11/28/23 01/23/24 hr,extended release sertraline 50 mg tablet 100 mg PO DAILY 11/28/23 01/23/24 Previous Rx's ?Medication ?Instructions ?Recorded naltrexone 50 mg tablet 50 mg PO DAILY #30 tabs 01/23/24 ondansetron 4 mg disintegrating 4 mg PO Q8H PRN nausea and 07/22/24 tablet vomiting #10 tabs ondansetron 4 mg disintegrating 4 mg PO Q8H PRN nausea and 10/23/24 tablet vomiting #7 tabs Allergies Allergy/AdvReac Type Severity Reaction Status Date / Time droperidol (From INAPSINE) Allergy Severe MUSCLE Verified 10/23/24 12:11 CRAMPS PMFSH Past Medical History Medical History Alcohol use disorder Depression Social History Social History Household Members: Significant Other and Children Housing: House Do you presently have visiting nurse or other home services: No Unable to assess alcohol history related to: Unknown Alcohol intake: never Patient Tobacco Use Status: Never used Tobacco Tobacco use type: Cigarette Cigarette Packs Per Day: 0.1 Cigarettes Per Day: 2.0 Smoked in Last 30 Days: Yes Second Hand Smoke Exposure: No Use of substances other than those prescribed or required for medical reasons: Yes Substance Use Type: Marijuana Substance Use Frequency: Daily Advance Directives: No Advance Directives Information Provided: Yes Do you have a plan to hurt others: No Plan service: No Sexual orientation: Straight/Heterosexual Physical Exam Exam: Exam: EXAM: Gen: Alert, awakened mildly ill-appearing not toxic. She is slightly clammy actively nauseated slightly pale. Head: Atraumatic Eyes: Anicteric, Normal conjunctiva. ENT: Moist mucosa, no pallor. ? Neck: Supple. Skin: ?No observable rash or bruising on exposed or examined skin Respiratory: Breathing comfortably, No distress.Clear to auscultation bilaterally, symmetric chest expansion, No wheeze, rales, ronchi. Cardiovascular: Regular rate and rhythm. No murmurs or rub. Well perfused periphery, warm extremities. No edema. ? Abdominal: No focal tenderness. Soft, no objective distension. No palpable masses or obvious organomegaly. ?No guarding, no rebound tenderness or other peritoneal findings. : No flank tenderness. Neuro: Alert. Gross movement of all extremities intact. ? Psych: Calm. Cooperative. MSK: No grossly visible deformity. Vital signs: See flowsheet Vital Signs: Vital Signs: Last Vital Signs Temp 97.8 F 10/23/24 15:48 Pulse 62 10/23/24 15:48 Resp 16 10/23/24 15:48 BP 122/64 10/23/24 15:48 Pulse Ox 99 10/23/24 15:48 O2 Del Method Room Air 10/23/24 15:48 BMI result Body Mass Index 18.0 Medications Administered Discontinued Medications Generic Name Dose Route Start Last Admin Trade Name Freq PRN Reason Stop Dose Admin Lactated Ringer's 1,000 mls @ 999 mls/hr 10/23/24 12:30 10/23/24 13:41 Lr IV 10/23/24 13:30 Infused .Q1H1M MARIO Infusion Ondansetron HCl 4 mg 10/23/24 12:26 10/23/24 12:39 Ondansetron Hcl 4 Mg/2 Ml Vial IVPUSH 10/23/24 12:27 4 mg ONCE ONE Administration Medical Decision Making Medical Decision Making MDM Narrative: Medical Decision Makin-year-old female with depression history with abrupt nausea vomiting generalized weakness discomfort rigors. Found to be hypothermic rectally at that time I learned that about 12:25 I activated sepsis. Patient will get broad lab workup including tick panel blood cultures lactate LFTs. She has no focal dermatologic bony or musculoskeletal intra-abdominal or intrathoracic infectious source based on history and exam. IV fluid antiemetics. Ordered. Despite initial hypothermia this improved. Patient met sirs criteria and given some of the symptomatology there was the possible though non focal suggestion of a possible infection. Sepsis alert was activated however the patient improved and had very reassuring lab work. Reexamination did not reveal any dermatologic MSK, RAWHIDE TRIMMER, pulmonary or intra-abdominal infectious sources. Unclear cause of the patient's mild hypothermia but unlikely sepsis. Strict return precautions were explained to the patient she understood these. Close follow up with PCP recommended Preliminary Favored Differential Diagnosis: Sepsis, UTI, GERD, gastritis, polypharmacy, PUD,among additional considered etiologies Testing Interpreted Independently: ?See below for details Radiology or Lab testing Results Reviewed: ?See below for details Consults: ?See below for details Independent Historians/External Chart Reviews: ?See below for details Social Determinants of Health Impacting MDM/Planning: ?See below for details Lab Data 10/23/24 12:44 10/23/24 12:44 Labs: Lab Results 10/23/24 10/23/24 10/23/24 Range/Units 12:44 12:44 14:23 WBC 10.1 (4.8-10.8) X10*3/uL RBC 4.16 L (4.20-5.50) X10*6/uL Hgb 12.4 (12.0-16.0) g/dl Hct 36.3 L (37.0-47.0) % MCV 87.3 (80.0-98.0) fL MCH 29.8 (27.0-33.0) pg MCHC 34.2 (31.0-35.0) g/dl RDW 12.8 (11.0-16.0) % Plt Count 352 D (160-400) X10*3/uL MPV 9.8 (9.4-12.3) fL Immature Gran % (Auto) 0.4 (0.0-0.4) % Neut % (Auto) 86.2 H (45-73) % Lymph % (Auto) 9.2 L (20-40) % [place] % (Auto) 3.3 (2-11) % Eos % (Auto) 0.2 (0-4) % Baso % (Auto) 0.7 (0-2) % Lymph # (Auto) 0.9 L (1.2-4.9) X10*3/uL [place] # (Auto) 0.3 (0.1-1.2) X10*3/uL Eos # (Auto) 0.0 (0.0-0.4) X10*3/uL Baso # (Auto) 0.1 (0.0-0.2) X10*3/uL Abs Immat Gran (auto) 0.04 H (0.00-0.03) X10*3/uL Absolute Neuts (auto) 8.7 H (2.0-8.3) x10*3/uL Absolute Nucleated RBC 0.000 (0.0-0.012) X10*3/uL Nucleated RBC % (auto) 0.0 (0.0-0.2) /100WBC PT 12.0 (10.9-12.4) SEC INR 1.0 (0.9-1.1) APTT 25.6 L (26.7-34.1) SEC Sodium 142 (135-145) mmol/L Potassium 3.8 (3.3-5.1) mmol/L Chloride 105 (96-108) mmol/L Carbon Dioxide 22 (22-29) mmol/L Anion Gap 19 (12-20) BUN 14 (9-16) mg/dL Creatinine 0.88 (0.5-1.4) mg/dL Estim Creat Clear Calc 55.8 Estimated GFR > 60 Random Glucose 138 H (60-115) mg/dL Lactic Acid 2.7 H* (0.5-2.0) mmol/L Calcium 10.3 H D (8.4-10.2) mg/dL Total Bilirubin 0.8 0.7 (0.0-1.0) mg/dL Direct Bilirubin 0.2 (0.0-0.5) mg/dL AST 26 (5-31) U/L ALT 18 (0-31) U/L Alkaline Phosphatase 49 (39-117) U/L Total Protein 7.5 (6.5-8.0) g/dL Albumin 4.9 (3.5-5.0) g/dL Lipase 52 (8-78) U/L Urine Color Yellow Urine Appearance Clear Urine pH >= 9.0 (5.0-9.0) Ur Specific [place] 1.015 (1.005-1.025) Urine Protein 30 (1+) H (Neg-Trace) mg/dL Urine Glucose (UA) Negative (Negative) mg/dL Urine Ketones 80 (Negative) mg/dL Urine Blood Negative (Negative) Urine Nitrite Negative (Negative) Ur Leukocyte Esterase Trace H (Negative) Urine RBC 0-2 (0-2) /HPF Urine WBC 0-5 (0-5) /HPF Ur Squamous Epith Cells 0-2 (0-2) /HPF Urine Bacteria Trace (None Seen) Hyaline Casts 0-2 (0-2) /LPF Lyme Screen IgG & IgM <0.90 index Critical Care Time Critical Care Time Critical Care Time: Yes Total Critical Care Time: 30 Attestation: ED Critical Care: Arrival hypothermia, lactic acid 2.7 initially meets severe sepsis criteria despite reassuring lab work reexamination and eventual discharge Authorized and Performed by: Nii Purdy MD Total critical care time: Approximately 30 Due to a high probability of clinically significant, life threatening deterioration, the patient required my highest level of preparedness to intervene emergently and I personally spent this critical care time directly and personally managing the patient. This critical care time included obtaining a history; examining the patient; pulse oximetry; ordering and review of studies; arranging urgent treatment with development of a management plan; evaluation of patient's response to treatment; frequent reassessment; and, discussions with other providers. This critical care time was performed to assess and manage the high probability of imminent, life-threatening deterioration that could result in multi-organ failure. It was exclusive of separately billable procedures and treating other patients and teaching time. Discharge Plan Discharge Clinical Impression: Dehydration Patient Disposition: Home, Self-Care Instructions: Dehydration (ED) Additional Instructions: DISCHARGE DIAGNOSES: Nausea vomiting and dehydration unclear cause could be viral process or food-borne illness HISTORY OF PRESENTATION: ?Nausea vomiting generalized malaise EMERGENCY DEPARTMENT COURSE,TESTS, TREATMENTS: While in the ED today you had reassuring lab work urinalysis you were given a single dose of antibiotic and intravenous fluid for dehydration and possible suspected infection because you had a low body temperature initially. Your symptoms improved somewhat and you had reassuring lab work so you were discharged home you will be called back if the blood cultures show bacterial infection in the bloodstream DISCHARGE MEDICATIONS: ?[We have made no changes to your regular medication regimen] we have added nausea medicine only be deemed to be taken as needed FOLLOW-UP: ?Call your primary or general physician soon as possible to discuss your symptoms, your ED visit and to discuss follow up plans Call your primary doctor for urgent follow up in the next 3-5 days for ER follow up INSTRUCTIONS ?& RETURN PRECAUTIONS: If any symptoms change first call your primary physician, if it is after-hours your primary doctors office should have a provider microsoft application developer you can speak with. If the symptoms are severe or very concerning to you then call 911 or return to the ED. Nii Purdy MD Emergency Physician [facility] Prescriptions: New ondansetron 4 mg tablet,disintegrating 4 mg PO Q8H PRN (Reason: nausea and vomiting) Qty: 7 0RF No Action propranolol 60 mg capsule,extended release 24 hr 60 mg PO DAILY bupropion HCl 150 mg tablet extended release 24 hr 150 mg PO DAILY sertraline 50 mg tablet 100 mg PO DAILY naltrexone 50 mg tablet 50 mg PO DAILY Qty: 30 0RF Rx Instructions: take 1/2 tab daily for 3 days then increase to one tab daily ondansetron 4 mg tablet,disintegrating 4 mg PO Q8H PRN (Reason: nausea and vomiting) Qty: 10 0RF Interventions: ED Discharge Assessment Last Done: 10/23/24 15:48 Discharge Date/Time: 10/23/24 15:48 Print Language: Bulgarian
[2024-10-23] MEDS: Lactated Ringers 1,000 ML 999 ML IV (12:39)
[2024-10-23 12:55] LABS: MANUAL DIFF FLAG NO
[2024-10-23 13:03] LABS: Hematocrit 36.3 % (37.0-47.0); Hemoglobin 12.4 g/dl (12.0-16.0); Imm Gran Abs Auto 0.04 X10*3/uL (0.00-0.03); Imm Gran Pct Auto 0.4 % (0.0-0.4); Lymphocytes Absolute Auto 0.9 X10*3/uL (1.2-4.9); Mean Corpuscular HGB Conc 34.2 g/dl (31.0-35.0); Mean Corpuscular Hemoglobin 29.8 pg (27.0-33.0); Mean Corpuscular Volume 87.3 fL (80.0-98.0); NRBC Abs Auto 0.000 X10*3/uL (0.0-0.012); NRBC Pct Auto 0.0 /100WBC (0.0-0.2); Platelet Count 352 X10*3/uL (160-400); Red Blood Count 4.16 X10*6/uL (4.20-5.50); White Blood Count 10.1 X10*3/uL (4.8-10.8)
[2024-10-23 13:07] LABS: INTERNATIONAL NORM RATIO 1.0 (0.9-1.1); Prothrombin Time 12.0 SEC (10.9-12.4)
[2024-10-23 13:10] LABS: Partial Thromboplastin Time 25.6 SEC (26.7-34.1)
[2024-10-23 13:16] LABS: Alanine Aminotransferase 18 U/L (0-31); Albumin Level 4.9 g/dL (3.5-5.0); Alkaline Phosphatase 49 U/L (39-117); Anion Gap 19 (12-20); Aspartate Amino Transferase 26 U/L (5-31); Blood Urea Nitrogen 14 mg/dL (9-16); Calcium 10.3 mg/dL (8.4-10.2); Carbon Dioxide 22 mmol/L (22-29); Chloride 105 mmol/L (96-108); Creatinine Clr Calc Pharmacy 55.8; Estimated Glomerular Filt Rate > 60; Lipase 52 U/L (8-78); Potassium 3.8 mmol/L (3.3-5.1); Sodium 142 mmol/L (135-145); Total Protein 7.5 g/dL (6.5-8.0)
[2024-10-23 13:24] VITALS: BP 147/70; PULSE 47; RESP 14; O2SAT 98
[2024-10-23 13:37] VITALS: BP 147/70; PULSE 47; RESP 14; TEMP 35.8; O2SAT 98
[2024-10-23 13:54] VITALS: BP 156/75
[2024-10-23 14:26] VITALS: BP 161/76; PULSE 62; RESP 16; O2SAT 99
[2024-10-23 14:30] LABS: Appearance Urine Clear; Glucose Urine UA Negative (Negative); PH >= 9.0 (5.0-9.0); Specific Gravity - Urine 1.015 (1.005-1.025); UMIC TRIGGER UACC YES
--- OUTSIDE RECORDS SUMMARY | 2024-10-23 14:44 | XMS_ITS ---
Author Name [facility] Organization Unknown Care Team Organization Name Specialty Phone Email Start Date End Da te [facility] Lisa Centeno Primary Care 02/27/2022 [facility] Yokasta Samaniego Primary Care 12/27/2021 10/08/19 24
--- OUTSIDE RECORDS SUMMARY | 2024-10-23 14:44 | XMS_ITS | Clinical Summary ---
Author Organization [address] Address [address] [place] [phone] Phone Care Team Providers Care Radiology Transporter Name Role Phone Lisa Centeno MD Primary Care Provider [phone] Allergies Active Allergy Reactions Criticality Noted Date Comments Citalopram 05/29/2022 States she became increased suicidal after taking this medication Clindamycin 03/08/2021 Upset stomach Droperidol 01/23/2005 Medications sertraline (ZOLOFT) 50 mg tablet Take 1 tablet (50 mg total) by mouth 1 (one) time each day. 4 Active mirtazapine (REMERON) 30 mg tablet TAKE 1 TABLET BY MOUTH AT BEDTIME 4 Active thiamine 100 mg tablet Take 1 Tablet by mouth daily. 4 Active buPROPion SR (WELLBUTRIN SR) 150 mg 12 hr tablet Take 1 tablet (150 mg total) by mouth 1 (one) time each day in the morning. 5 Active sertraline (ZOLOFT) 100 mg tablet Take 1.5 tablets (150 mg total) by mouth 1 (one) time each day. 5 Active naltrexone (DEPADE) 50 mg tablet Take 1 tablet (50 mg total) by mouth 1 (one) time each day. 5 Active traZODone (DESYREL) 100 mg tablet Take 1 tablet (100 mg total) by mouth at bedtime. 5 Active omeprazole (PriLOSEC) [address] capsule Take 1 capsule (20 mg total) by mouth 1 (one) time each day. Do not crush or chew. 90 each 1 5 04/04/19 26 Active ondansetron (ZOFRAN) 4 mg tablet Take 1 tablet (4 mg total) by mouth every 8 (eight) hours if needed for nausea or vomiting. 30 tablet 2 5 Active omeprazole (PriLOSEC) [address] capsule TAKE 1 CAPSULE BY MOUTH EVERY DAY AT 6:30 AM 4 10/07/19 25 Discontinued Active Problems Problem Noted Date Diagnosed Date Retinal detachment 02/08/2024 Arthritis of carpometacarpal (CMC) joint of left thumb 03/31/2023 Macrocytosis without anemia 05/29/2022 Anxiety 03/11/2021 Acne rosacea 09/11/2018 Adjustment disorder 08/07/2018 Onychomycosis 08/07/2018 Mixed bipolar I disorder (CMS/[facility] V24, CMS/[facility] V 28) 09/10/2006 History of uterine fibroid Overview (08/15/2024): DX:History of uterine fibroid; COMMENT: 14-week size fibroid uterus, uterine fibroids >250g. s/p hyst 04/2015. Resolved Problems Problem Noted Date Diagnosed Date Resolved Date Family history of breast cancer 10/05/2024 Overview (08/15/2024): DX:Family history of breast cancer; COMMENT: maternal aunts x2- referred to genetic screening Encounters Date Type Department Care Team Description 10/06/2024 2:30 PM EDT Office Visit Adult Medicine [address] [phone] Lisa Centeno MD Weight loss (Primary Dx); Nausea and vomiting, unspecified vomiting type 2024 Telephone Adult Medicine [address] [phone] Lisa Centeno MD 09/16/2024 Telephone Adult Medicine [address] [phone] Flori Campos RN 09/09/2024 Telephone Adult Medicine [address] [phone] Flori Campos, TIMBO 08/08/2024 Nurse Triage Adult Medicine [address] [phone] Lisa Centeno MD from Last 3 Months Immunizations Name Administration Dates Next Due Moderna SARS-CoV-2 COVID-19, mRNA, LNP-S, preservative free 11/04/2020,10/01/2020 PPD Test 03/03/2003 Tdap Tetanus diptheria acell ular pertussis (Boostrix; Adacel) 7yo and older 08/07/2018 Surgical History Surgery Date Site/Laterality Comments HYSTERECTOMY 05/18/2015 Lap supracervical hyst, single port, bilateral salpingectomy. EYE SURGERY 2014 retinal detatchment HIP ARTHROPLASTY 2014 : pins on left Medical History Medical History Date Comments Bipolar I disorder, most rec ent episode (or current) mixed, unspecified 09/10/2006 Retinal detachment : 2013 Onychomycosis 08/07/2018 Adjustment disorder 08/07/2018 Acne rosacea 09/11/2018 History of uterine fibroid 03/11/2021 Anxiety 03/11/2021 Family History Medical History Relation Name Comments Diabetes Aunt Depression Father suicide at age 28 Depression Mother Breast cancer Mother's side Breast cancer Other mat great aunt Relation Name Status Comments Aunt Alive Father Mother Mother's side Other mat great aunt Alive Social History Tobacco Use Types Packs/Day Years Used Date Smoking Tobacco: Light Smoker Cigarettes Last attempted t o quit: 02/19/1997 Smokeless Tobacco: Never Tobacco Cessation:Ready to Q uit: Not Asked; Counseling Given: Not Answered Alcohol Use Standard Drinks/Week Comments Yes 4 (1 standard drink = 0.6 oz pur e alcohol) Comments Unknown Sex and Gender Information Value Date Recorded Sex Assigned at Female 08/23/2024 1:23 PM EDT Legal Sex Female 5:23 PM EST Gender Identity Female 08/23/2024 1:23 PM EDT Sexual Orientation Straight 08/23/2024 1: 23 PM EDT Obstetrics History Last Filed Vital Signs Vital Sign Reading Time Taken Comments Blood Pressure 100/52 10/06/2024 2:25 PM EDT Pulse 72 10/06/2024 2:25 PM EDT Temperature 35.7 C (96.3 F) 10/06/2024 2:25 PM EDT Respiratory Rate 14 10/06/2024 2:25 PM EDT Oxygen Saturation 99% 10/06/2024 2:25 PM EDT Inhaled Oxygen Concentration - - Weight 49.6 kg (109 lb 4.8 oz) 10/06/2024 2:25 P M EDT Height 165.1 cm (5' 5 ) 10/06/2024 2:25 PM EDT Body Mass Index 18.19 10/06/2024 2:25 PM EDT Plan of Treatment Upcoming Encounters Date Type Department Care Team (Late st Contact Info) Description 01/20/2025 1:20 PM EST Consult Gastroenterology - [place] [address] [facility] [address] [place] [address] Elen Farrell, CLINICAL DOCUMENTATION SPECIALIST [address] [place] [phone] Health Maintenance Due Date Last Done Comments Hepatitis B Vaccines (1 of 3 - 19+ 3-dose series) 1988 Pneumococcal Vaccine: 50+ Years (1 of 2 - PCV) 1988 Zoster Vaccines (1 of 2) 10/04/2019 Cholesterol Screening (Lipid Panel) 01/28/2022 Colorectal Cancer Screening: Colonoscopy 01/28/2022 HIV Screening 01/28/2022 Hepatitis C Screening 01/28/2022 Social Influencers of Health Screening 01/28/2022 COVID-19 Vaccine (3 - 2023-2 5 season) 2023 11/04/2020, 10/01/2020 Breast Cancer Screening 01/04/2024 01/04/20 22, 10/06/2021, 09/21/2021 Depression Screening 02/20/2024 Influenza Vaccine (#1) 2024 Cervical Cancer Screening: HPV 03/08/2026 03/08/2021 DTaP,Tdap,and Td Vaccines (2 - Td or Tdap) 08/07/2028 08/07/2018 HIB Vaccines Aged Out No longer eligi ble based on patient's age to complete this topic HPV Vaccines Aged Out No longer eligi ble based on patient's age to complete this topic Hepatitis A Vaccines Aged Out No long er eligible based on patient's age to complete this topic IPV Vaccines Aged Out No longer eligi ble based on patient's age to complete this topic MMR Vaccines Aged Out No longer eligi ble based on patient's age to complete this topic Meningococcal ACWY Vaccine Aged Out N o longer eligible based on patient's age to complete this topic Meningococcal B Vaccine Aged Out No l onger eligible based on patient's age to complete this topic RSV Immunization Patients Under 20 months Aged Out No longer eligible b ased on patient's age to complete this topic Varicella Vaccines Aged Out No longer eligible based on patient's age to complete this topic Procedures Procedure Name Priority Date/Time Associated Diagnosis Comments CBC WITH AUTO DIFFERENTIAL Routine 10/06/2024 2:54 PM EDT Weight loss Nausea and vomiting, unspecified vomiting type CBC AND DIFFERENTIAL Routine 10/06/2024 2:54 PM EDT Weight loss Nausea and vomiting, unspecified vomiting type COMPREHENSIVE METABOLIC PANEL Routine 10/06/2024 2:54 PM EDT Weight loss Nausea and vomiting, unspecified vomiting type DX MAMMO INCL CAD UNI Routine 01/03/2022 2:45 PM EST Other abnormal and inconclusive findings on diagnostic imaging of breast HM HPV Routine 03/08/2021 from Last 3 Months or Most Recently Relevant to Health Maintenance Results * (ABNORMAL) CBC auto differential (10/06/2024 2:54 PM EDT) WBC 6.7 4.8 - 10.8 K/mcL LAB HEMETOLOGY METHOD 10/06/2024 4:54 PM EDT [facility] RBC 3.80 3.80 - 4.80 M/mcL LAB HEMETOLOGY METHOD 10/06/2024 4:54 PM EDT [facility] Hemoglobin 11.2(L) 11.5 - 16.0 g/dL LAB HEMETOLOGY METHOD 10/06/2024 4:54 PM EDT [facility] Hematocrit 35.0 35.0 - 47.0 % LAB HEMETOLOGY METHOD 10/06/2024 4:54 PM EDT [facility] MCV 91.4 79.0 - 98.0 FL LAB HEMETOLOGY METHOD 10/06/2024 4:54 PM EDT [facility] MCH 29.2 27.0 - 32.0 pcg LAB HEMETOLOGY METHOD 10/06/2024 4:54 PM EDT [facility] MCHC 32.0 32.0 - 37.0 g/dL LAB HEMETOLOGY METHOD 10/06/2024 4:54 PM EDT [facility] RDW 12.9 11.0 - 15.0 % LAB HEMETOLOGY METHOD 10/06/2024 4:54 PM EDT [facility] Platelets 290 130 - 400 K/mcL LAB [facility]OLOGY [facility] MPV 9.8 7.0 - 11.0 FL LAB HEMETOLOGY METHOD 10/06/2024 4:54 PM EDT [facility] NRBC 0.0 <1.0 % LAB HEMETOLOGY METHOD 10/06[facility]24 [facility] NRBC Absolute 0.00 <0.10 K/mcL LAB HEMETOLOGY METHOD 10/06[facility]2024 4[facility] Neutrophils Relative 71.8 % LAB HEMETOLOGY METHOD 10/06/2024 4:54 PM EDT [facility] Lymphocytes Relative 22.2 % LAB HEMETOLOGY METHOD 10/06/2024 4:54 PM EDT [facility] Monocytes Relative 4.5 % LAB HEMETOLOGY METHOD 10/06/2024 4:54 PM EDT [facility] Eosinophils Relative 0.4 % LAB HEMETOLOGY METHOD 10/06/2024 4:54 PM EDT [facility] Basophils Relative 1.0 % LAB HEMETOLOGY METHOD 10/06/2024 4:54 PM EDT [facility] Immature Granulocytes Relative 0.1 % LAB HEMETOLOGY METHOD 10/06/2024 4:54 PM EDT [facility] Neutrophils Absolute 4.79 1.50 - 7.00 K/mcL LAB HEMETOLOGY METHOD 10/06/2024 4:54 PM EDT [facility] Lymphocytes Absolute 1.48 1.00 - 5.00 K/mcL LAB HEMETOLOGY METHOD 10/06/2024 4:54 PM EDT [facility] Monocytes Absolute 0.30 0.20 - 1.00 K/mcL LAB HEMETOLOGY METHOD 10/06/2024 4:54 PM EDT [facility] Eosinophils Absolute 0.03 0.00 - 0.50 K/mcL LAB HEMETOLOGY METHOD 10/06/2024 4:54 PM EDT [facility] Basophils Absolute 0.07 0.00 - 0.20 K/mcL LAB HEMETOLOGY METHOD 10/06/2024 4:54 PM EDT [facility] Immature Granulocytes Absolute 0.01 0.00 - 0.03 K/mcL LAB HEMETOLOGY METHOD 10/06/2024 4:54 PM EDT [facility] Blood Venous blood specimen / Unknown Venipuncture / Unknown 10/06/2024 2:54 PM EDT 10/06/2024 2:54 PM EDT us Lisa Centeno MD LAB BLOOD ORDERABLES Final Resul t [facility] [address] [place] [address], * (ABNORMAL) Comprehensive metabolic panel (10/06/2024 2:54 PM EDT) Sodium 138 133 - 145 mmol/L LAB CHEMISTRY METHOD 10/06/2024 7:21 PM [facility] Potassium 4.1 3.5 - 5.5 mmol/L LAB CHEMISTRY METHOD 10/06/2024 7:21 PM [facility] Chloride 102 96 - 110 mmol/L LAB CHEMISTRY METHOD 10/06/2024 7:21 PM [facility] CO2 32 21 - 32 mmol/L LAB CHEMISTRY METHOD 10/06/2024 7:21 PM [facility] Anion Gap 4 3 - 11 LAB CHEMISTRY METHOD 10/06/2024 7:21 PM [facility] Glucose 113(H) 70 - 100 mg/dL LAB CHEMISTRY METHOD 10/06/2024 7:21 PM [facility] BUN 14 5 - 25 mg/dL LAB CHEMISTRY METHOD 10/06/2024 7:21 PM [facility] Creatinine 0.92 0.50 - 1.10 mg/dL LAB CHEMISTRY METHOD 10/06/2024 7:21 PM [facility] eGFR 74 >=60 mL/min/1. 73m2 LAB CHEMISTRY METHOD 10/06/2024 7:21 PM [facility] Comment:Calculation based on the Chronic Kidney Disease Epidemiology Collaboration (CKD-EPI) equation refit without adjustment for race. BUN/Creatinine Ratio 15.2 LAB CHEMISTRY METHOD 10/06/2024 7:21 PM [facility] Calcium 9.6 8.5 - 10.5 mg/dL LAB CHEMISTRY METHOD 10/06/2024 7:21 PM [facility] AST (SGOT) 15 10 - 42 unit/L LAB CHEMISTRY METHOD 10/06/2024 7:21 PM [facility] ALT (SGPT) 27 10 - 60 unit/L LAB CHEMISTRY METHOD 10/06/2024 7:21 PM [facility] Alkaline Phosphatase 43 42 - 121 unit/L LAB CHEMISTRY METHOD 10/06/2024 7:21 PM [facility] Total Protein 6.7 6.0 - 8.0 g/dL LAB CHEMISTRY METHOD 10/06/2024 7:21 PM EDT [facility] Albumin 4.0 3.2 - 5.0 g/dL LAB CHEMISTRY METHOD 10/06/2024 7:21 PM EDT [facility] Total Bilirubin 0.4 0.0 - 1.4 mg/dL LAB CHEMISTRY METHOD 10/06/2024 7:21 PM EDT [facility] Blood Venous blood specimen / Unknown Venipuncture / Unknown 10/06/2024 2:54 PM EDT 10/06/2024 2:54 PM EDT Lisa Centeno MD LAB BLOOD ORDERABLES Final Resul t [facility] [address] [place] [address], * DX MAMMO INCL CAD UNI (01/03/2022 2:45 PM EST) Anatomical Region Laterality Modality Mammography 10/07/2021 7:43 AM EDT Narrative 01/03/2022 4:20 PM EST 2 view digital mammogram right breast for clip placement: See combined report with stereotactic core biopsy of the same day. Procedure Note Deysi Huerta MD - 04/19/2023 2 view digital mammogram right breast for clip placement: See combinedreport with stereotactic core biopsy of the same day. Lisa Centeno MD IMG BI PROCEDURES Final Result * Cervical Cancer Screening: HPV (03/08/2021) Pathologist [facility] Cervical Cancer Screening: HPV negative, abstracted Historical Provider HEALTH MAINTENANCE Final Result from Last 3 Months or Most Recently Relevant to Health Maintenance Insurance [employer] Care Teams Radiology Transporter Relationship Specialty Start Date End Date Lisa Centeno MD [address], [place] PCP - General Internal Medicine 10/12/20
[2024-10-23 14:55] LABS: Reflex Lactate? Lactic Acid Added
[2024-10-23 15:48] VITALS: BP 122/64; PULSE 62; RESP 16; TEMP 36.6; O2SAT 99
[2024-10-24 11:19] LABS: Lyme Abs Screen <0.90 index
[2024-10-24 18:34] LABS: A. Phagocytphilium DNA,RT-PCR NOT DETECTED (NOT DETECTED); Babesia Microti DNA, RT-PCR NOT DETECTED (NOT DETECTED); Borrelia Miyamotoi,DNA RT-PCR NOT DETECTED (NOT DETECTED); E.Chaffeensis DNA RT-PCR NOT DETECTED (NOT DETECTED); Lyme(Borrelia ssp)DNA RT-PCR NOT DETECTED (NOT DETECTED)
== END 2024-10-23 15:48 | disposition home or self-care (01) ==
PROVIDERS: Emergency Provider Emergency Medicine; PCP Internal Medicine
DX: E86.0 Dehydration (principal); R11.2 Nausea with vomiting, unspecified; R53.1 Weakness; Z79.899 Other long term (current) drug therapy
CPT/HCPCS: 36415; 71045; 80048; 80076; 81001; 82247; 83605; 83690; 85025; 85610; 85730; 86617; 86618; 87040; 87468; 87469; 87478; 87484; 87798; 93005; 96361; 96374; 99284; 99285; J2405; J7120

== ENCOUNTER → 2024-10-23 12:17 | Outpatient (BNV) | payer OTHER, SELFPAY | PROVIDERS: Emergency Provider Emergency Medicine; PCP Internal Medicine; Visit Provider Internal Medicine Cardiovascular Disease | DX: R00.1 Bradycardia, unspecified (principal) | CPT/HCPCS: 93010 ==

== ENCOUNTER → 2024-10-23 12:26 | Outpatient (BNV) | payer OTHER, SELFPAY | PROVIDERS: Emergency Provider Emergency Medicine; PCP Internal Medicine; Visit Provider Radiology Diagnostic Radiology | DX: R53.1 Weakness (principal) | CPT/HCPCS: 71045 ==